=== PATIENT | female | born 1950 | race Hispanic/Latino ===

== ENCOUNTER 2017-02-23 11:48 | Inpatient (IN) | payer BC ==
[2017-02-23 12:56] LABS: #Eosinphils 0.2 thou/uL (0.0-0.7); #Lymphocytes 1.5 thou/uL (1.20-3.40); #Monocytes 0.6 thou/uL (0.11-0.59); #Neutrophils 10.2 thou/uL (1.40-6.50); %Basophils 0.2 % (0.0-1.0); %Eosinophils 1.5 % (0.0-10.0); %Lymphocytes 11.7 % (21.0-51.0); %Monocytes 4.7 % (0.0-10.0); Hematocrit 31.8 % (36.0-47.0); Mean Platelet Volume 6.1 fL (7.4-10.4); Red Blood Cell (RBC) Count 3.59 mill/uL (4.20-5.40); White Blood Cell (WBC) Count 12.4 thou/uL (4.8-10.8)
[2017-02-23] MEDS ORDERED: Furosemide 40 MG/4 ML VIAL ONE (13:07)
[2017-02-23 13:14] LABS: ALT (SGPT) 11 U/L (8-55); AST (SGOT) 15 U/L (5-34); Alkaline Phosphatase 62 U/L (40-150); Anion Gap 23 mmol/L (10-20); BUN (Urea Nitrogen) 60 mg/dL (9.8-20.1); Bilirubin, Total 0.6 mg/dL (0.2-1.2); CK (CPK) 406 U/L (29-168); Calc. Creatinine Clearance 0 mL/min (70-130); Calcium 7.6 mg/dL (7.8-10.44); Carbon Dioxide 20 mmol/L (23-31); Chloride 101 mmol/L (98-107); Estimated GFR-MDRD 3; Lipase 45 U/L (8-78); Protein, Total 7.3 g/dL (6.0-8.3)
[2017-02-23] MEDS ORDERED: Sodium Bicarb 50 MEQ/50 ML Abboject 8.4% SYRINGE ONE (13:24)
[2017-02-23] MEDS ORDERED: Insulin Regular 300 UNITS/3 ML VIAL ONE (13:24)
[2017-02-23] MEDS ORDERED: Dextrose 50% Abboject 50 ML SYRINGE ONE ×2 (13:25→14:45)
[2017-02-23] MEDS ORDERED: Calcium Chloride 1 GM/10 ML Abboject SYRINGE IVP SCH (13:30)
--- NOTE | 2017-02-23 15:06 | RAD ---
PORTABLE CHEST: Comparison: 06-20-16 History: Shortness of breath. FINDINGS: Heart size is enlarged. There is moderate pulmonary edema changes present. Small effusion. IMPRESSION: Cardiomegaly with moderate pulmonary edema type change. POS: [facility]
[2017-02-23 15:52] LABS: Anion Gap 19 mmol/L (10-20); BUN (Urea Nitrogen) 59 mg/dL (9.8-20.1); Calc. Creatinine Clearance 0 mL/min (70-130); Calcium 8.3 mg/dL (7.8-10.44); Carbon Dioxide 21 mmol/L (23-31); Chloride 103 mmol/L (98-107); Estimated GFR-MDRD 3
[2017-02-23 16:02] LABS: Troponin I 0.025 ng/mL (< 0.028)
[2017-02-23 17:06] VITALS: BMI 28.3
[2017-02-23] MEDS ORDERED: Acetaminophen 325 MG TAB PO PRN (18:03)
[2017-02-23] MEDS ORDERED: Insulin Regular 300 UNITS/3 ML VIAL SC PRN (18:15)
[2017-02-23] MEDS ORDERED: Dextrose 5% in Water 1,000 ML IV PRN (18:15)
[2017-02-23] MEDS ORDERED: Dextrose 50% Abboject 50 ML SYRINGE SLOW IVP PRN (18:15)
[2017-02-23] MEDS ORDERED: Epoetin (ESRD) 20,000 UNITS/ML SC SCH (18:30)
--- NOTE | 2017-02-23 19:03 | HP ---
DATE OF ADMISSION: 02/23/2017 ADMITTING PHYSICIAN: Dany Cabello M.D. PRIMARY CARE PHYSICIAN: Bartolome Head M.D. CHIEF COMPLAINT: Shortness of breath. HISTORY OF PRESENT ILLNESS: The patient is a pleasant 66-year-old female with history of end-stage r enal disease secondary to hypertension and diabetes. Patient is Vietnamese-speaking only and history is limited. Her family is at bedside and they report that she has been having difficulty breathing sin ce yesterday afternoon. Her dyspnea has worsened over the course of 1 day. They report that she did not have dialysis yesterday since she was not feeling well. The patient reports cough, sore throat and sweating. She denies nausea or vomiting. She reports intermittent chest pressure and feels like there is an inflated balloon in her upper abdomen and lower chest. The symptoms have improved somew hat since she has been here in the hospital. Dr. Villarreal, her chief media officer, is aware of her situation. The patient also noted to have potassium of 7.0. She will be admitted for peritoneal dialysis. REVIEW OF SYSTEMS: The following complete review of systems was negative, unless otherwise mentioned in the HPI or below: Constitutional: Weight loss or gain, sense of well-being, ability to conduct usual activities, exercise tolerance. Skin/Breast: Rash, itching, changes in hair growth or loss, n ail changes, breast lumps, tenderness, swelling, nipple discharge. Eyes: Vision, double vision, tea ring, blind spots, pain. ENT/Mouth: Headaches (location, time of onset, duration, precipitating fac tors), vertigo, lightheadedness, injury. Vision, double vision, tearing, blind spots, pain, nose blee ding, colds, obstruction, discharge, dental difficulties, gingival bleeding, dentures, neck stiffness , pain, tenderness, masses in thyroid or other areas. Cardiovascular: Precordial pain, substernal di stress, palpitations, syncope, dyspnea on exertion, orthopnea, nocturnal paroxysmal dyspnea, edema, c yanosis, hypertension, heart murmurs, varicosities, phlebitis, claudication. Respiratory: Pain, sourav rtness of breath, wheezing, stridor, cough, hemoptysis, fever or night sweats. Gastrointestinal: Po or appetite, dysphagia, indigestion, abdominal pain, heartburn, eructation, nausea, vomiting, hematem esis, jaundice, constipation, or diarrhea, abnormal stools (sarahy-colored, tarry, bloody, greasy, foul smelling), flatulence, hemorrhoids, recent changes in bowel habits. Genitourinary: Urgency, freque ncy, dysuria, nocturia, hematuria, polyuria, oliguria, unusual (or change in) color of urine, stones, hesitancy, change in size of stream, dribbling, acute retention or incontinence, libido, potency. M usculoskeletal: Pain, swelling, redness or heat of muscles or joints, limitation, of motion, muscula r weakness, atrophy, cramps. Neurologic/Psychiatric: Convulsions, paralyses, tremor, incoordination, parasthesias, difficulties with memory of speech, sensory or motor disturbances, or muscular coordin ation (ataxia, tremor), emotional problems, anxiety, depression, previous psychiatric care, unusual p erceptions, hallucinations. Allergy/Immunologic: Skin rash, anemia, bleeding tendency, polydipsia, polyuria, intolerance to heat or cold. PAST MEDICAL HISTORY: Significant for end-stage renal disease, diabetes type 2, hypertension. PAST SURGICAL HISTORY: Significant for bilateral cataract removal, dialysis shunt placement, tubal l igation, peritoneal abdominal cath site in the left lower quadrant and bladder suspension. PSYCHIATRIC HISTORY: Negative. SOCIAL HISTORY: Denies alcohol, drug use or smoking. She lives with her family and they are very harris pportive. FAMILY HISTORY: Reviewed and noncontributory to this case. HOME MEDICATIONS: Amlodipine 5 mg b.i.d., calcitriol 0.5 mg every day, calcium 600 plus D3 1 tablet t.i.d., calcium acetate 667 mg t.i.d., carvedilol 12.5 mg b.i.d., magnesium oxide 800 mg every day, m ultivitamin 2 tablets once a day. ALLERGIES: No known drug allergies. PHYSICAL EXAMINATION: VITAL SIGNS: Temperature 98.2, blood pressure 83/63, pulse 68, respirations 17, satting 96% on 2 lit ers. CONSTITUTIONAL: No acute distress, pleasant, cooperative. HEAD: Normocephalic, atraumatic. EYES: PERRL. Extraocular muscles intact. EAR, NOSE, THROAT: Nose normal. Ears normal. Trachea midline. There is some JVD distention. RESPIRATORY: There are crackles as well as some wheezing. CARDIAC: Regular rate and rhythm. Normal S1, normal S2. ABDOMEN: There is an umbilical hernia present that is reducible. There is a left lower quadrant per itoneal dialysis catheter present. EXTREMITIES: No clubbing, cyanosis or edema. She does have venous stasis changes. NEUROLOGIC: Alert and oriented to person, place and time. Full range of motion of extremities. LABORATORY DATA IMAGES: Chest x-ray shows moderate pulmonary edema, small pleural effusions and card iomegaly. EKG shows prolonged QT, normal sinus rhythm with a rate of 68, ST segments normal, T waves normal. CMP shows a sodium of 137, potassium 7.0, chloride 101, CO2 20, BUN 60, creatinine 14, AST 15, ALT 11, creatinine kinase 406, CK-MB 5.9, troponin I 0.03. BNP of 1628. Albumin 3.3. Glucose 9 2. Repeat potassium 3 hours later shows a potassium of 5.4. CBC shows a white count of 12.4, hemogl obin 10.4, hematocrit 31.8, platelets 295. ASSESSMENT AND PLAN: 1. Hyperkalemia. 2. End-stage renal disease. 3. Volume overload. 4. Hypertension. 5. Diabetes type 2. The patient will be admitted obviously to CCU with her hyperkalemia. She will be under the care of h chief media officer, Dr. Villarreal, who has ordered peritoneal dialysis. We will also treat her hypertension w ith her home medication regimen. We will place her on a sliding scale insulin regimen with q.a.c. an d at bedtime capillary blood glucose levels. We will do DVT prophylaxis with SCD devices.
[2017-02-23 19:11] LABS: Troponin I 0.037 ng/mL (< 0.028)
[2017-02-23] MEDS: hydrALAZINE 20 MG/ML VIAL SLOW IVP PRN (19:30)
[2017-02-24 04:30] LABS: #Eosinphils 0.2 thou/uL (0.0-0.7); #Lymphocytes 1.1 thou/uL (1.20-3.40); #Monocytes 0.6 thou/uL (0.11-0.59); #Neutrophils 6.7 thou/uL (1.40-6.50); %Basophils 0.6 % (0.0-1.0); %Eosinophils 2.3 % (0.0-10.0); %Lymphocytes 12.8 % (21.0-51.0); %Monocytes 6.5 % (0.0-10.0); Hematocrit 31.7 % (36.0-47.0); Mean Platelet Volume 6.4 fL (7.4-10.4); Red Blood Cell (RBC) Count 3.53 mill/uL (4.20-5.40); White Blood Cell (WBC) Count 8.6 thou/uL (4.8-10.8)
[2017-02-24 04:31] LABS: Anion Gap 20 mmol/L (10-20); BUN (Urea Nitrogen) 48 mg/dL (9.8-20.1); Calc. Creatinine Clearance 5 mL/min (70-130); Calcium 8.1 mg/dL (7.8-10.44); Carbon Dioxide 24 mmol/L (23-31); Chloride 104 mmol/L (98-107); Estimated GFR-MDRD 3; Phosphorus 7.4 mg/dL (2.3-4.7)
--- NOTE | 2017-02-24 05:51 | CON ---
DATE OF CONSULTATION: 02/23/2017 HISTORY OF PRESENT ILLNESS: Ms. Devi is a 66-year-old female with end-stage renal disease on per itoneal dialysis. Apparently, she skipped her dialysis session because she was not feeling well. Helga salazar presented to the emergency room with complaints of shortness of breath. She has undergone peritone al dialysis now and her potassium is come down. Her shortness of breath is improved. She says she i s much better. PAST MEDICAL HISTORY: Remarkable for diabetes and hypertension. PAST SURGICAL HISTORY: Cataract surgery, peripheral vascular access placement, peritoneal dialysis c atheter placement as well as a bladder suspension. SOCIAL HISTORY: She is nonsmoker, nondrinker. REVIEW OF SYSTEMS: Otherwise negative. MEDICATIONS: She is on calcitriol, amlodipine, calcium, Coreg, magnesium, and multivitamins prior to admission. ALLERGIES: She has no drug allergies. PHYSICAL EXAMINATION: GENERAL: She is in no distress, lying flat. VITAL SIGNS: She is afebrile. Oximetry is 98 on 2 liters, heart rate 71, and blood pressure 187/72. LUNGS: Clear. HEART: Regular rhythm. S1 and S2 are normal. ABDOMEN: Obese and nontender. EXTREMITIES: Without asymmetry. Pulmonary edema seen on the radiograph. IMPRESSION: Pulmonary edema and hyperkalemia secondary to failure to dialyze. Her potassium was 7.0 , now 5.4. Creatinine is 14.07, BUN was 60, this did not change as expected post-dialysis. Her BNP was 1627. She appears clinically stable, but we will remain in the ICU for now.
[2017-02-24] MEDS: Calcium Carbonate 500 MG ChewTAB PO SCH ×3 (07:30→17:12)
[2017-02-24] MEDS ORDERED: Carvedilol 3.125 MG TAB PO SCH (08:00)
[2017-02-24] MEDS ORDERED: Cefdinir 300 MG CAP PO SCH (09:00)
[2017-02-24] MEDS: Calcitriol 0.25 MCG CAP PO SCH (09:00)
--- NOTE | 2017-02-24 09:51 | CON ---
DATE OF CONSULTATION: 02/24/2017 RENAL MEDICINE HISTORY OF PRESENT ILLNESS: Ms. Devi is a 66-year-old female with ESRD - currently on peritoneal dialysis. She came in with the chief complaint of generalized weakness. She was also complaining of shortness of breath. During the initial evaluation, she was noted to be hyperka lemic. She was also found to be in mild volume overload. According to the patient, she was not feel ing well. She has been taking liberal intake of fluid as well as tea which was high in potassium. S he also stopped her nocturnal dialysis the night prior to admission. For now, we were consulted for hyperkalemia - she underwent emergent peritoneal dialysis. I did two quick 1 liter exchanges with 4. 25% PD solution and we are able to remove significant fluids. This was also done due to the hyperkal emia. She was placed on CCPD regimen using a 4.25% solution to enhance ultrafiltration. However, sh e started complaining of cramps. The plan will be to change the PD solution to 2.5% solution in the hope of decreasing ultrafiltration. This morning, she is feeling better. She denies any chest pain or shortness of breath. REVIEW OF SYSTEMS: No chest pain, no shortness of breath, no nausea, no vomiting, no diarrhea, no co nstipation, no syncopal episode, no diarrhea, no fever or chills, no joint pains, no new skin rash, n o diplopia, no appetite and energy level is decreased. No sore throat, no headache. MEDICATIONS: Tylenol 650 mg q.4 h. p.r.n., calcitriol 0.25 mcg daily, Tums 500 mg p.o. t.i.d. with m eals, Coreg 3.125 mg b.i.d., Omnicef 300 mg daily, Epogen 5000 units subcutaneously every 7 days, Hum ulin R sliding scale. PAST MEDICAL HISTORY: 1. ESRD secondary to chronic interstitial nephritis. 2. Hypertension. 3. Type 2 diabetes mellitus, controlled by diet. 4. Chronic low back pain. 5. DJD. 6. History of chronic NSAID intake. PAST SURGICAL HISTORY: 1. Status post PD catheter placement. 2. Status post cataract surgery. 3. Status post bladder suspension. SOCIAL HISTORY: The patient is single and she lives in the [facility]. Currently, n o smoking, no alcohol intake, no IV drug abuse. Status post blood transfusion. Retired house [employer]. She has 6 children with one . She is . Please note she did have history of smoki ng 15 pack years, originally from [place]. Education, primary grade in [place]. FAMILY HISTORY: Positive family history of ESRD. One sister on dialysis. ALLERGIES: None. TRAUMA: None. IMMUNIZATIONS: Up-to-date. PHYSICAL EXAMINATION: VITAL SIGNS: Blood pressure 173/68, heart rate 75, respiratory rate 22, pulse ox 100%. GENERAL: Noted to be awake, alert, comfortable, not in distress. SKIN: Adequate turgor. HEENT: She has slightly pale conjunctivae, anicteric sclerae. NECK: No neck mass, no carotid bruits, no JVD. CHEST: No deformities. LUNGS: Clear breath sounds. No wheezing, no crackles. HEART: Normal sinus rhythm. No murmur, no gallops, no rubs. ABDOMEN: Globular, soft, nontender, no masses. Positive for PD catheter. EXTREMITIES: No edema. LABORATORY DATA: Of 01/25/2017, white count 8.6, hemoglobin 10.4, sodium 143, potassium 4.7, chlorid e 104, carbon dioxide 24, BUN 48, creatinine 12.99, glucose 134, calcium 8.1, phosphorus 7.4, albumin is 2.8. Further review of her serum potassium shows 02/23/2017 potassium was 7. On 02/23/2017, ana st x-ray shows increased lung markings. ASSESSMENT AND PLAN: 1. Congestive heart failure, much improved. We will max out ultrafiltration with the peritoneal lon lysis. I removed about 2.5 liters overnight with peritoneal dialysis. Due to the cramping episode, we will be changing her PD solution. 2. End-stage renal disease, stable. We will continue current CCPD regimen. Next step will be using a 2.5% PD solution for tonight. 3. Anemia, on weekly Epogen. 4. Hyperkalemia, resolved. 5. Congestive heart failure, clinically much improved with peritoneal dialysis. I did discuss about compliance issues with this patient via her daughter who was translating for me. Overall, I agree w ith current management.
[2017-02-24] MEDS: hydrALAZINE 20 MG/ML VIAL SLOW IVP PRN (09:54)
--- NOTE | 2017-02-24 10:08 | PDOC.PN ---
- Subjective Encounter Start Date: 02/24/17 Encounter Start Time: 08:25 -: old records requested/rev Patient seen and examined. No new complaints. No overnight events - Objective Resuscitation Status: Resuscitation Status FULL:Full Resuscitation MAR Reviewed: Yes Vital Signs & Weight: Vital Signs (12 hours) Temp Pulse Resp BP Pulse Ox 02/24/17 09:54 75 204/73 H 02/24/17 08:00 98.5 F 02/24/17 07:35 98.5 F 76 19 100 02/24/17 04:00 98.4 F 02/24/17 00:00 98.6 F Most Recent Monitor Data Heart Rate from ECG 75 NIBP 173/68 NIBP BP-Mean 85 Respiration from ECG 22 SpO2 100 I&O: 02/23/17 02/24/17 02/25/17 06:59 06:59 06:59 Intake Total 590 240 Output Total 280 300 Balance 310 -60 Result Diagrams: 02/24/17 04:10 02/24/17 04:10 Additional Labs: Accuchecks 02/23/17 21:37 POC Glucose 140 H EKG Reviewed by me: Yes (NSR) Phys Exam - Physical Examination Constitutional: NAD HEENT: PERRLA, moist MMs, sclera anicteric Neck: no JVD, supple Respiratory: no wheezing, no rhonchi few basilar rales Cardiovascular: RRR, no significant murmur, no rub Gastrointestinal: soft, non-tender, no distention, positive bowel sounds obeisty+, PD catheter + Musculoskeletal: no edema, pulses present Neurological: non-focal, normal sensation Lymphatic: no nodes Psychiatric: normal affect, A&O x 3 Skin: no rash, normal turgor Dx/Plan (1) Acute on chronic combined systolic and diastolic congestive heart failure Code(s): I50.43 - ACUTE ON CHRONIC COMBINED SYSTOLIC AND DIASTOLIC HRT FAIL Status: Acute (2) Acute pulmonary edema Code(s): J81.0 - ACUTE PULMONARY EDEMA Status: Acute (3) Demand ischemia Code(s): I24.8 - OTHER FORMS OF ACUTE ISCHEMIC HEART DISEASE Status: Acute (4) Hypoglycemia due to type 2 diabetes mellitus Code(s): E11.649 - TYPE 2 DIABETES MELLITUS WITH HYPOGLYCEMIA WITHOUT COMA Status: Acute (5) Volume overload Code(s): E87.70 - FLUID OVERLOAD, UNSPECIFIED Status: Acute (6) Anemia of renal disease Code(s): D63.1 - ANEMIA IN CHRONIC KIDNEY DISEASE Status: Chronic (7) Diabetes type 2, controlled Code(s): E11.9 - TYPE 2 DIABETES MELLITUS WITHOUT COMPLICATIONS Status: Chronic (8) ESRD on peritoneal dialysis Code(s): N18.6 - END STAGE RENAL DISEASE; Z99.2 - DEPENDENCE ON RENAL DIALYSIS Status: Chronic (9) Hypertension Code(s): I10 - ESSENTIAL (PRIMARY) HYPERTENSION Status: Chronic (10) Secondary hyperparathyroidism of renal origin Code(s): N25.81 - SECONDARY HYPERPARATHYROIDISM OF RENAL ORIGIN Status: Chronic - Plan cont current plan of care, plan discussed w/ family * today will adjust BP meds * transfer to medical today * continue PD for fluid removal * wean off oxygen if not needed * medication reviewed as below * symptomatic treatment * discussed with daughter bedside and discussed test result. Review of Systems - Review of Systems Constitutional: negative: Fever, Chills, Sweats, Weakness, Malaise, Other ENT: negative: Ear Pain, Ear Discharge, Nose Pain, Nose Discharge, Nose Congestion, Mouth Pain, Mouth Swelling, Throat Pain, Throat Swelling, Other Respiratory: Shortness of Breath, SOB with Excertion. negative: Cough, Dry, Hemoptysis, Pleuritic Pain, Sputum, Wheezing Cardiovascular: negative: Chest Pain, Palpitations, Orthopnea, Paroxysmal Noc. Dyspnea, Edema, Light Headedness, Other Gastrointestinal: negative: Nausea, Vomiting, Abdominal Pain, Diarrhea, Constipation, Melena, Hematochezia, Other Genitourinary: negative: Dysuria, Frequency, Incontinence, Hematuria, Retention , Other Musculoskeletal: negative: Neck Pain, Shoulder Pain, Arm Pain, Back Pain, Hand Pain, Leg Pain, Foot Pain, Other Skin: negative: Rash, Lesions, Jere, Bruising, Other - Medications/Allergies Allergies/Adverse Reactions: Allergies Allergy/AdvReac Type Severity Reaction Status Date / Time No Known Allergies Allergy Verified 04/20/14 23:39 Medications: Current Medications Acetaminophen (Tylenol) 650 mg PO Q4H PRN PRN Reason: Headache/Fever or Pain Amlodipine Besylate (Norvasc) 5 mg PO BID [facility] Calcitriol (Rocaltrol) 0.25 mcg PO DAILY [facility] Last Admin: 02/24/17 09:00 Dose: 0.25 mcg Calcium Acetate (Phoslo) 2,668 mg PO TID [facility] Calcium Carbonate (Tums) 500 mg PO TID[facility] Last Admin: 02/24/17 07:30 Dose: 500 mg Carvedilol (Coreg) 12.5 mg PO BID-[facility] Cefdinir (Omnicef) 300 mg PO DAILY [facility] Last Admin: 02/24/17 07:30 Dose: 300 mg Cholecalciferol (Vitamin D3) 5,000 units PO DAILY [facility] Dextrose/Water (Dextrose 50%) 25 gm SLOW IVP PRN PRN PRN Reason: Hypoglycemia Epoetin Edson (Procrit) 5,000 units SC Q7D [facility] Last Admin: 02/23/17 19:30 Dose: 5,000 units Glucagon (Glucagon) 1 mg IM PRN PRN PRN Reason: Hypoglycemia Hydralazine HCl (Apresoline) 10 mg SLOW IVP Q4H PRN PRN Reason: Blood Pressure Last Admin: 02/24/17 09:54 Dose: 10 mg Dextrose/Water (D5w) 1,000 mls @ 0 mls/hr IV .Q0M PRN; As Directed PRN Reason: Hypoglycemia Insulin Human Regular (Humulin R) 0 units SC .MILD SLIDING SCALE PRN PRN Reason: Mild Correctional Scale Sodium Chloride (Flush - Normal Saline) 10 ml IVF PRN PRN PRN Reason: Saline Flush
[2017-02-24] MEDS ORDERED: Sevelamer Carbonate 800 MG TAB PO SCH (12:00)
--- NOTE | 2017-02-24 12:42 | PRG ---
DATE OF SERVICE: 02/24/2017 SUBJECTIVE: Ms. Devi did well overnight. She is back to her baseline. PHYSICAL EXAMINATION: VITAL SIGNS: She has a little hypertensive with blood pressure of 204/73 earlier today. She is afeb rile, heart rate 75, respiratory rate is 18. LUNGS: Lungs are clear. HEART: Regular rhythm. ABDOMEN: Abdomen is soft. It was assumed that skipping 1 day of peritoneal dialysis led to her problems. She may have also had significant hypertension at home that was not diagnosed leading to her pulmonary edema. She will ne ed to continue with PD on a daily basis. This was emphasized to the family. Home blood pressure mon itoring would be appropriate. She is stable to move out of the Critical Care Unit.
[2017-02-24] MEDS ORDERED: CALCIUM CARBONATE PO SCH (15:00)
[2017-02-24] MEDS ORDERED: [UNRECOGNIZED DRUG - OTHER] PO SCH (15:00)
[2017-02-24] MEDS ORDERED: VITAMIN D3 PO SCH (15:00)
[2017-02-24] MEDS: Carvedilol 6.25 MG TAB PO SCH (17:11)
[2017-02-24] MEDS: Calcium Acetate 667 MG CAP PO SCH ×2 (17:11→20:51)
[2017-02-24] MEDS: Amlodipine 5 MG TAB PO SCH (20:51)
[2017-02-25 06:25] LABS: Anion Gap 19 mmol/L (10-20); BUN (Urea Nitrogen) 46 mg/dL (9.8-20.1); BUN/Creatinine Ratio 3.62; Calc. Creatinine Clearance 5 mL/min (70-130); Calcium 8.3 mg/dL (7.8-10.44); Carbon Dioxide 25 mmol/L (23-31); Chloride 102 mmol/L (98-107); Estimated GFR-MDRD 3; Phosphorus 7.4 mg/dL (2.3-4.7)
[2017-02-25] MEDS: Calcium Acetate 667 MG CAP PO SCH (08:04)
[2017-02-25] MEDS: Calcitriol 0.25 MCG CAP PO SCH (08:04)
[2017-02-25] MEDS: Calcium Carbonate 500 MG ChewTAB PO SCH (08:05)
[2017-02-25] MEDS: Amlodipine 5 MG TAB PO SCH (08:05)
[2017-02-25] MEDS: Carvedilol 6.25 MG TAB PO SCH (08:05)
[2017-02-25 08:29] VITALS: BP 176/83; TEMP 98.3
--- NOTE | 2017-02-25 11:13 | PRG ---
DATE OF CONSULTATION: 02/25/2017 HISTORY OF PRESENT ILLNESS: Ms. Devi is a 66-year-old female with ESRD and currently on peritoneal dialysis - nocturnal. She was admitted for CHF and hyperkalemia. She received intensive peritoneal dialysis on the day of admission. She is feeling better, her breathing is much improved. Potassium is now within normal. She voices no new complaints - no chest pain or shortness of breat h. PHYSICAL EXAMINATION: VITAL SIGNS: Blood pressure is 176/83, heart rate 70, respiratory rate 18, temperature 98.3, pulse o x 93%. GENERAL: Awake, alert, comfortable, not in distress. SKIN: Adequate turgor. HEENT: She has pinkish conjunctivae, anicteric sclerae. NECK: No neck mass, no carotid bruits, no JVD. CHEST: No deformities. LUNGS: Clear breath sounds, no wheezing, no crackles. HEART: Normal sinus rhythm. No murmur, no gallops or rubs. ABDOMEN: Globular, soft, nontender, no masses. EXTREMITIES: No edema, no deformities. Please note she has a PD catheter in the belly. MEDICATIONS: 03/17/2017 - Reviewed. LABORATORY: 02/24/2017 - White count 8.6, hemoglobin 10.4. 02/25/2017 - Potassium 4.7, BUN 46, creatinine 12.7, glucose 122, phosphorus is 7.4. ASSESSMENT AND PLAN: 1. Congestive heart failure, clinically improved with initiation of dialysis. 2. Hyperkalemia, resolved with dialysis. 3. End-stage renal disease, continuing current CCPD regimen. We have changed her PD regimen to usin g a 2.5% PD solution for 12 hours nocturnal dialysis. 4. Hyperphosphatemia currently on PhosLo 667 mg 3-4 tabs t.i.d. with meals. 5. Hypertension. Adjustment of BP meds made. I agree with planned management - for possible discharge today. Again, the patient was counseled on compliance with her dialysis regimen.
--- NOTE | 2017-02-25 11:27 | DIS ---
DATE OF ADMISSION: 02/23/2017 DATE OF DISCHARGE: 02/25/2017 PRIMARY CARE PHYSICIAN: Dr. Jm Rondon. DISCHARGE DISPOSITION: Home. PRIMARY DISCHARGE DIAGNOSES: 1. Acute on chronic combined systolic and diastolic congestive heart failure. 2. Acute pulmonary edema. 3. Demand ischemia of myocardium. 4. Hypoglycemia associated with diabetes type 2. 5. Volume overload due to end-stage renal disease. SECONDARY DISCHARGE DIAGNOSES: 1. End-stage renal disease on peritoneal dialysis. 2. Hypertension. 3. Diabetes type 2. 4. Anemia of renal disease. 5. Secondary hyperparathyroidism of renal origin. PRIMARY PROCEDURE/OPERATION: Peritoneal dialysis. RADIOLOGICAL INVESTIGATION: Chest x-ray showed findings suggestive of pulmonary edema. SIGNIFICANT LABORATORY DATA: WBC 8.2, hemoglobin 10.4, platelets 279. BMP shows sodium 141, potassium 4.7, BUN 46, creatinine 12.7, calcium 8.3, phosphorus 7.4, albumin 2.8. DISCHARGE MEDICATIONS: Amlodipine 5 mg p.o. b.i.d., calcitriol 0.5 mcg p.o. daily, PhosLo 667 mg 4 capsules t.i.d., multivitamin tablet daily, calcium with vitamin D 1 tablet t.i.d., Coreg 12.5 mg p.o. b.i.d., vitamin D3 5000 units p.o. daily, hydralazine 25 mg p.o. b.i.d., Imdur 30 mg p.o. daily. CONTRAINDICATIONS: Patient is not on YURIY inhibitor and ARB, because of renal failure and contraindicated instated patient is on hydralazine and mononitrate therapy. INPATIENT CONSULTANTS: Dr. Marcelino was following this patient while in hospital, because patient was admitted in ICU. Dr. Villarreal was consulted for dialysis. TEST RESULTS PENDING ON DISCHARGE: None. ALLERGIES: No known drug allergies. DISCHARGE PLAN: Post hospital, the patient will follow up with Dr. Villarreal and primary care physician as instructed. HOSPITAL COURSE: A 66-year-old female who was admitted by Dr. Dayn Cabello. Please see his H&P for further details. The patient was admitted on 02/23/2017 with increasing shortness of breath. The patient missed her peritoneal dialysis and subsequently she started having increasing shortness of breath, orthopnea. In the emergency room, she also had hyperkalemia with potassium 7.0 and she had x-ray chest, which showed acute pulmonary edema. She was fluid overloaded. She required admission in CCU. She was emergently dialyzed with peritoneal dialysis under Dr. Villarreal. After peritoneal dialysis and significant fluid removal, the patient became euvolemic and her potassium improved. The next day, we transferred her to medical floor. We continued peritoneal dialysis as per Nephrology while in hospital. By the time of discharge, the patient was feeling much better. Her blood pressure was not well controlled and that is why during this admission, we started hydralazine and mononitrate therapy given her systolic and diastolic heart failure. Based on previous echocardiography, patient has systolic and diastolic dysfunction and that is why we added hydralazine and mononitrate therapy. She is not on YURIY inhibitor and ARB, because of ESRD. The patient is seen and examined at bedside today. Plan of care discussed with the family member at bedside. PHYSICAL EXAMINAITON: VITAL SIGNS: Currently, temperature 98.3, pulse 70, respiratory rate 18, saturation 93%, and blood pressure 176/89. Weight 154 pounds. GENERAL: The patient is currently alert, awake, no acute distress. HEAD: Normocephalic, atraumatic. LUNGS: Clear to auscultation without any rhonchi or rales. CARDIAC: S1, S2 regular without any murmur. ABDOMEN: Soft and benign without any tenderness. EXTREMITIES: No edema. NEUROLOGIC: Nonfocal examination. Peritoneal dialysis catheter site is clean and healthy. All new medication prescriptions sent to her pharmacy. EMELINA
== END 2017-02-25 10:45 | disposition home or self-care (01) | DRG 291 ==
LOC: ERS 11:48 → CCU 16:15 → T4-A 02-24 09:51
PROVIDERS: ADMIT Internal Medicine Addiction Medicine; ATTEND Internal Medicine Addiction Medicine
PROC: 3E1M39Z Irrigation of Peritoneal Cavity using Dialysate, Percutaneous Approach (ICD-10-PCS; principal; 2017-02-23)
DX: I13.2 Hypertensive heart and chronic kidney disease with heart failure and with stage 5 chronic kidney disease, or end stage renal disease (principal); I50.43 Acute on chronic combined systolic (congestive) and diastolic (congestive) heart failure; N18.6 End stage renal disease; N25.81 Secondary hyperparathyroidism of renal origin; E11.22 Type 2 diabetes mellitus with diabetic chronic kidney disease; I24.8 Other forms of acute ischemic heart disease; E11.649 Type 2 diabetes mellitus with hypoglycemia without coma; E83.39 Other disorders of phosphorus metabolism; E87.5 Hyperkalemia; Z99.2 Dependence on renal dialysis; D63.1 Anemia in chronic kidney disease; M19.90 Unspecified osteoarthritis, unspecified site; Z91.15 Patient's noncompliance with renal dialysis
CPT/HCPCS: 36415; 36416; 71010; 80053; 80069; 82553; 83690; 83880; 84484; 85025; 90945; 93005; 94760; 96365; 96375; 96376; G0257; J0360; J1815; J1940; Q4081

== ENCOUNTER 2018-03-01 13:36 | Emergency (ER) | payer BC ==
[2018-03-01 14:39] LABS: #Eosinphils 0.2 thou/uL (0.0-0.7); #Lymphocytes 1.6 thou/uL (1.20-3.40); #Monocytes 0.6 thou/uL (0.11-0.59); %Basophils 0.2 % (0.0-1.0); %Eosinophils 2.1 % (0.0-10.0); %Lymphocytes 18.5 % (21.0-51.0); %Monocytes 7.4 % (0.0-10.0); %Neutrophils 71.9 % (42.0-75.0); Hemoglobin 9.6 g/dL (12.0-16.0); Mean Corpuscular HGB CONC 33.5 g/dL (32.0-36.0); Mean Corpuscular Hemoglobin 29.5 pg (27.0-31.0); Mean Corpuscular Volume 88.2 fL (78.0-98.0); Mean Platelet Volume 6.7 fL (7.4-10.4); Platelet Count 331 thou/uL (130-400); RBC Distribution Width 13.2 % (11.5-14.5); Red Blood Cell (RBC) Count 3.26 mill/uL (4.20-5.40); White Blood Cell (WBC) Count 8.4 thou/uL (4.8-10.8)
[2018-03-01 14:58] LABS: ALT (SGPT) 8 U/L (8-55); AST (SGOT) 11 U/L (5-34); Albumin 3.1 g/dL (3.4-4.8); Alkaline Phosphatase 62 U/L (40-150); Anion Gap 28 mmol/L (10-20); BUN (Urea Nitrogen) 55 mg/dL (9.8-20.1); Bilirubin, Total 0.6 mg/dL (0.2-1.2); Calc. Creatinine Clearance 0 mL/min (70-130); Carbon Dioxide 19 mmol/L (23-31); Chloride 98 mmol/L (98-107); Estimated GFR-MDRD 2; Globulin 3.9 g/dL (2.4-3.5); Glucose 115 mg/dL (80-115); Lipase 90 U/L (8-78); Potassium 5.7 mmol/L (3.5-5.1); Sodium 139 mmol/L (136-145)
--- NOTE | 2018-03-01 16:15 | CT ---
CT ABDOMEN AND PELVIS WITHOUT CONTRAST: 03/01/2018 PROVIDED CLINICAL HISTORY: Upper abdominal pain. FINDINGS: The visualized lung bases are free of significant opacity. Prominent vascular calcifications are seen. There is a 3.7 cm right adrenal mass with Hounsfield uni ts not compatible with a lipid-rich adenoma. There are small, nonobstructing calculi present involvi ng each kidney, in addition to renal vascular calcification. The solid abdominal organs are suboptim ally evaluated, in the absence of IV contrast material, but demonstrate an otherwise unremarkable CT appearance. Mild nonspecific fullness to the left renal collecting system without evidence for addit ional urinary tract calculi. No bowel dilatation, inflammatory fat stranding, or free air apparent. Free fluid is present within the pelvis, with a peritoneal dialysis catheter noted, coiled within the anterior aspect of the pelvi s. Pessary is noted. There is no evidence for a concerning osteoblastic or osteolytic osseous lesio n. Degenerative changes are seen. There is a large, coarse calcification present within the central abdominal mesentery, likely reflect ing sequela of prior granulomatous disease. IMPRESSION: 1. Bilateral nonobstructing nephrolithiasis and nonspecific fullness of the left renal collecting sy stem. 2. 3.7 cm right adrenal mass, incompletely characterized on the basis of this study. Non-emergent f ollow-up CT of the abdomen with and without intravenous contrast, utilizing adrenal adenoma protocol, recommended. POS: [facility]
[2018-03-01] MEDS ORDERED: Pantoprazole 40 MG VIAL ONE (16:31)
--- NOTE | 2018-03-01 17:20 | ULT ---
RIGHT UPPER QUADRANT ULTRASOUND: 03/01/2018 HISTORY: Right upper quadrant abdominal pain. COMPARISON: Noncontrast CT abdomen on 03/01/2018. FINDINGS: The liver is borderline enlarged, measuring 18 cm in craniocaudal dimensions, but the liver otherwise has a normal sonographic appearance. The limited visualized portions of the pancreas, the visualize d portions of the IVC, and the gallbladder demonstrate a normal sonographic appearance. The common d uct measures 0.6 cm in diameter, which is within normal limits. The right kidney is small in size, measuring 8.8 cm in length, with mild increased echogenicity, whic h can be seen with medical renal disease. There is no renal cortical thinning present. A few echoge coleman foci are seen within the right kidney, without definite shadowing. However, recent CT examinatio n did demonstrate vascular calcifications, which may account for this finding. There is no hydroneph rosis present. IMPRESSION: 1. Borderline hepatomegaly. 2. No gallbladder calculi are seen, and the common duct is normal in diameter. 3. Increased echogenic appearance of the kidney, which is nonspecific. This can be seen with chroni c medical renal disease. There is no hydronephrosis. 4. The right adrenal lesion seen on CT examination is not able to be visualized on this examination. POS: [facility]
== END 2018-03-01 16:55 | disposition home or self-care (01) ==
LOC: ERS 13:36
DX: R10.11 Right upper quadrant pain (principal); R10.12 Left upper quadrant pain; E11.9 Type 2 diabetes mellitus without complications; I10 Essential (primary) hypertension; N28.9 Disorder of kidney and ureter, unspecified; Z79.899 Other long term (current) drug therapy
CPT/HCPCS: 36415; 74176; 76705; 80053; 83690; 84484; 85025; 94760; 96374; C9113

== ENCOUNTER 2018-09-07 16:35 | Inpatient (IN) | payer BC ==
[2018-09-07 17:18] LABS: #Basophils 0.1 thou/uL (0.0-0.2); #Eosinphils 0.2 thou/uL (0.0-0.7); #Monocytes 0.8 thou/uL (0.11-0.59); #Neutrophils 6.8 thou/uL (1.40-6.50); %Basophils 0.7 % (0.0-1.0); %Eosinophils 2.3 % (0.0-10.0); %Lymphocytes 20.1 % (21.0-51.0); %Monocytes 7.9 % (0.0-10.0); %Neutrophils 68.9 % (42.0-75.0); Hemoglobin 10.3 g/dL (12.0-16.0); Mean Corpuscular HGB CONC 30.9 g/dL (32.0-36.0); Mean Corpuscular Hemoglobin 26.3 pg (27.0-31.0); Mean Corpuscular Volume 85.2 fL (78.0-98.0); Mean Platelet Volume 6.9 fL (7.4-10.4); Platelet Count 369 thou/uL (130-400); RBC Distribution Width 18.4 % (11.5-14.5); Red Blood Cell (RBC) Count 3.92 mill/uL (4.20-5.40); White Blood Cell (WBC) Count 9.9 thou/uL (4.8-10.8)
[2018-09-07 17:37] LABS: ALT (SGPT) 13 U/L (8-55); AST (SGOT) 20 U/L (5-34); Albumin 3.5 g/dL (3.4-4.8); Alkaline Phosphatase 58 U/L (40-150); Anion Gap 22 mmol/L (10-20); BUN (Urea Nitrogen) 63 mg/dL (9.8-20.1); Bilirubin, Total 0.8 mg/dL (0.2-1.2); Calc. Creatinine Clearance 0 mL/min (70-130); Calcium 9.7 mg/dL (7.8-10.44); Carbon Dioxide 25 mmol/L (23-31); Chloride 90 mmol/L (98-107); Estimated GFR-MDRD 3; Globulin 3.7 g/dL (2.4-3.5); Glucose 96 mg/dL (80-115); Lipase 52 U/L (8-78); Potassium 5.6 mmol/L (3.5-5.1); Protein, Total 7.2 g/dL (6.0-8.3); Sodium 131 mmol/L (136-145)
[2018-09-07] MEDS ORDERED: Morphine 4 MG/ML VIAL ONE (17:52)
[2018-09-07 19:10] LABS: Body Fluid Source Peritoneal Fluid
[2018-09-07 19:11] LABS: BF RBC Count - Manual 9 /cumm; BF WBC/Nonhematics Ct. - Manua 71 /cumm; Clarity Clear (Clear); Tube # EDTA
[2018-09-07] MEDS ORDERED: cefTRIAXone\\ROCEPHIN 2 GM in Sodium Chloride 0.9% 100 ML IVPB SCH (19:30)
--- NOTE | 2018-09-07 19:33 | CT ---
CT OF ABDOMEN AND PELVIS PERFORMED WITH CONTRAST ENHANCEMENT: 09/07/18 HISTORY: Left sided abdominal pain for three days. COMPARISON: 03/01/[address] of the abdomen and pelvis. The heart size is enlarged with a small pericardial effusion. Lung bases show chronic appearing dexter e. Some minimal ground glass opacity could indicate the presence of edema change but no effusions [place] ntified. The liver, spleen, and pancreas regions are unremarkable. Gallbladder is slightly distended. There is a stable appearance to an approximately 3.7 cm right adrenal mass incompletely characterized . The left adrenal is normal. The right and left kidneys again show extensive vascular calcifications and also would appear to be some nonobstructing renal calculi. Fullness to the left collecting syste m is of similar finding that was seen on the prior exam and is nonspecific. No significant periaortic or mesenteric adenopathy. There is mild to moderate amount of ascites noted. The patient does have a peritoneal dialysis catheter. There is also free air demonstrated. I do not see a definite reason fo r the free air. It could be related to usage of the peritoneal dialysis catheter. There is a paraumbi lical hernia which is nonobstructing. CT OF PELVIS PERFORMED WITH CONTRAST ENHANCEMENT: There is a mass-like area projecting off the right side of the uterus which is felt to represent a fi broid. It measures approximately 4.8 cm in size and is stable. Calcified mesenteric density is also s table. A pessary is in place. Some mild wall thickening to a nondistended bladder is incidentally see n. No lytic or blastic bony lesions. IMPRESSION: 1. Moderate amount of ascites present. The patient does have a peritoneal dialysis catheter. In addition, there is free air demonstrated but I do not see a definite etiology for the free air. It i s possible it is related to dialysis catheter. These findings were discussed with Dr. Reaves who kiran s stated that there has been recent peritoneal dialysis catheter use. 2. Uterine fibroid. 3. Stable right adrenal mass. 4. Colonic diverticulosis. 5. Nonobstructing periumbilical hernia. 6. Duodenal diverticulum in the third portion of the duodenum. 7. Other incidental findings as noted above. POS: [facility]
[2018-09-07 19:40] LABS: BF Segmented Neutrophils 4 %; Cell Count Non Hematic 90 %; Lymphocytes 6 %
[2018-09-07] MEDS ORDERED: Bisacodyl 10 MG SUPP PR PRN (19:42)
[2018-09-07] MEDS ORDERED: Bisacodyl 5 MG TAB PO PRN (19:42)
[2018-09-07] MEDS ORDERED: Diabetic Tussin 200 MG/10 ML UDCUP PO PRN (19:42)
[2018-09-07] MEDS ORDERED: Benzonatate 100 MG CAP PO PRN (19:42)
[2018-09-07] MEDS ORDERED: Ondansetron PF 4 MG/2 ML Vial IVP PRN (19:42)
[2018-09-07] MEDS ORDERED: Nitroglycerin 0.4 MG TAB (25 Tab Bottle) SL PRN (19:42)
[2018-09-07] MEDS ORDERED: Senokot S 8.6-50 MG TAB PO PRN (19:42)
[2018-09-07] MEDS ORDERED: cloNIDine 0.1 MG TAB PO PRN (19:47)
[2018-09-07 19:55] LABS: Bilirubin Negative (Negative); Blood, Urine Large (Negative); Clarity Slightly Cloudy (Clear); Glucose, Urine (Dipstick) 100 mg/dL (Negative); Leukocyte Small (Negative); Nitrite Negative (Negative); Protein, Urine (Dipstick) > or equal to 300 mg/dL (Neg-Trace); Urobilinogen 0.2 mg/dL (0.2-1.0)
[2018-09-07 19:58] LABS: pH, Urine 8.5 (5.0-9.0)
[2018-09-07 20:01] LABS: Other Microscopic Description Less than 2 mL rec'd
[2018-09-07 20:02] LABS: Bacteria/HPF Rare-Few HPF (None Seen); Crystals/HPF 1+ AMORPH PHOS HPF (Negative); Hyaline Casts/LPF NONE SEEN LPF (0-3 Hyaline); RBC/HPF 0-3 HPF (0-3); Squamous Epithelial 0-3 HPF (0-3); WBC/HPF 0-3 HPF (0-3)
[2018-09-07] MEDS ORDERED: Dextrose 5% in Water 1,000 ML IV PRN (20:29)
[2018-09-07] MEDS ORDERED: Dextrose 50% Abboject 50 ML SYRINGE SLOW IVP PRN (20:29)
[2018-09-07] MEDS ORDERED: HumaLOG 300 UNITS/3 ML VIAL SC PRN ×2 (20:29)
[2018-09-07] MEDS ORDERED: cefTRIAXone\\ROCEPHIN 2 GM VIAL ONE (20:39)
[2018-09-07 21:12] VITALS: BMI 26.6
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
[2018-09-07] MEDS: Amlodipine 5 MG TAB PO SCH (21:28)
[2018-09-07] MEDS: Heparin 5,000 UNITS/ML VIAL SC SCH (21:28)
[2018-09-07] MEDS: Famotidine 20 MG TAB PO SCH (21:29)
[2018-09-07] MEDS: hydrALAZINE 20 MG/ML VIAL SLOW IVP PRN (22:48)
[2018-09-08] MEDS ORDERED: Morphine 2 MG/ML SYRINGE SLOW IVP PRN (02:10)
[2018-09-08 06:05] LABS: #Eosinphils 0.2 thou/uL (0.0-0.7); #Lymphocytes 1.5 thou/uL (1.20-3.40); #Monocytes 0.8 thou/uL (0.11-0.59); #Neutrophils 5.9 thou/uL (1.40-6.50); %Basophils 0.4 % (0.0-1.0); %Eosinophils 2.4 % (0.0-10.0); %Lymphocytes 17.6 % (21.0-51.0); %Monocytes 8.9 % (0.0-10.0); %Neutrophils 70.8 % (42.0-75.0); Hemoglobin 9.7 g/dL (12.0-16.0); Mean Corpuscular Hemoglobin 25.7 pg (27.0-31.0); Mean Corpuscular Volume 85.6 fL (78.0-98.0); Platelet Count 338 thou/uL (130-400); RBC Distribution Width 18.5 % (11.5-14.5); Red Blood Cell (RBC) Count 3.78 mill/uL (4.20-5.40); White Blood Cell (WBC) Count 8.4 thou/uL (4.8-10.8)
[2018-09-08 06:23] LABS: Anion Gap 19 mmol/L (10-20); BUN (Urea Nitrogen) 55 mg/dL (9.8-20.1); Calc. Creatinine Clearance 4 mL/min (70-130); Calcium 8.9 mg/dL (7.8-10.44); Carbon Dioxide 27 mmol/L (23-31); Chloride 89 mmol/L (98-107); Estimated GFR-MDRD 3; Glucose 109 mg/dL (80-115); Potassium 4.7 mmol/L (3.5-5.1); Sodium 130 mmol/L (136-145)
[2018-09-08] MEDS: Amlodipine 5 MG TAB PO SCH ×2 (08:43→20:47)
[2018-09-08] MEDS: Heparin 5,000 UNITS/ML VIAL SC SCH ×2 (08:44→20:47)
[2018-09-08] MEDS: cefTRIAXone\\ROCEPHIN 1 GM in Sodium Chloride 0.9% 100 ML IVPB SCH (08:44)
[2018-09-08] MEDS ORDERED: Epoetin (ESRD) 20,000 UNITS/ML SC SCH (08:45)
[2018-09-08] MEDS ORDERED: Magnesium Oxide 400 MG TAB PO PRN (09:30)
[2018-09-08] MEDS: Carvedilol 6.25 MG TAB PO SCH ×2 (09:48→17:45)
--- NOTE | 2018-09-08 11:08 | CON ---
DATE OF CONSULTATION: HISTORY OF PRESENT ILLNESS: Ms. Devi is a 68-year-old female with ESRD and admitted for abdominal pain. We are being consulted for her maintenance peritoneal dialysis. She had one peritoneal dialysis last night. Ultrafiltration/fluid removal was about 600 mL this morning. She is still complaining of abdominal fullness. Please note, the CAT scan was done, which showed ascites with this patient ? She is complaining of abdominal fullness. REVIEW OF SYSTEMS: No chest pain. Positive for abdominal fullness. Positive for abdominal discomfort. No nausea. No vomiting. No chest pain. No headache. No diplopia. No fever or chills. No hematochezia. No melena. No hematemesis. No dysuria. No urinary frequency. No PD fluid discoloration. MEDICATIONS: Currently on; 1. Amlodipine 5 mg p.o. b.i.d. 2. Tessalon Perles 100 mg q.6 p.r.n. 3. Ceftriaxone 1 g IV q.24 hours. 4. Famotidine 20 mg at bedtime. 5. Heparin 5000 units subcu b.i.d. 6. Humalog sliding scale. 7. Hydralazine 10 mg IV q.6 p.r.n. 8. Zofran 4 mg IV q.6 p.r.n. PAST MEDICAL HISTORY: Includes ESRD secondary to chronic interstitial nephritis currently on peritoneal dialysis, hypertension, type 2 DM - controlled by diet, chronic back pain, DJD, and history of chronic NSAID intake. PAST SURGICAL HISTORY: Status post PD catheter placement, status post cataract surgery, and status post bladder suspension. SOCIAL HISTORY: The patient lives alone. She lives in [place]. She is . Originally from [place]. Used to smoke for 15 years 1 pack a day. Education, primary grade in [place]. 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 Status post multiple blood transfusion. No alcohol. No IV drug abuse. Several children. FAMILY HISTORY: Positive family history of ESRD. One sister on dialysis. ALLERGIES: NONE. TRAUMA: None. IMMUNIZATION: Up-to-date. PHYSICAL EXAMINATION: VITAL SIGNS: Blood pressure is 148/66, heart rate 56, respiratory rate 18, temperature 98.3, and pulse ox 92%. GENERAL: Awake, alert, and comfortable, not in overt distress. SKIN: Adequate turgor. HEENT: The patient has a slightly pale conjunctivae. Anicteric sclerae. NECK: No neck mass. No carotid bruits. No JVD. CHEST: No deformities. LUNGS: Clear breath sounds. No wheezing. No crackles. HEART: Normal sinus rhythm. No murmur. No gallops or rubs. ABDOMEN: Globular and soft. Positive for ascites. EXTREMITIES: No edema. No deformities. Positive for PD catheter in the belly. NEUROLOGIC: Awake and oriented to 3 spheres. Moving all extremities. LABORATORY DATA: Laboratories of September 08, 2018, white count 8.4 and hemoglobin 9.7. Sodium 130, potassium 4.7, chloride 89, carbon dioxide 27, BUN 55, creatinine 12.84, glucose 109, and calcium 8.9. PD fluid cell count was 71. PD fluid was clear. Gram stain negative. Occasional white cell. No bacteria noted. CT scan of the abdomen shows moderate amount of ascites, uterine fibroids, stable right adrenal mass, colonic diverticulosis, nonobstructing periumbilical hernia, and duodenal diverticulum. ASSESSMENT AND PLAN: 1. End-stage renal disease. We will continue current CCPD regimen. 2. No changes will be made with the peritoneal dialysis. 3. Ascites - I have instructed the PD nurse to put a drain bag to drain the ascites to give her some relief of the abdominal discomfort. 4. Anemia. We will resume back Epogen 7500 units subcu every week. There is no evidence of peritonitis based on the PD fluid exam. 5. Overall prognosis remains guarded. If needed, we can always consult GI for evaluation of this ascites. Job ID: [id number]
[2018-09-08] MEDS ORDERED: EPOETIN ALFA-EPBX (ESRD) 10,000 UNIT/ML VIAL SC SCH (12:00)
[2018-09-08] MEDS ORDERED: EPOETIN ALFA-EPBX (ESRD) 4,000 UNIT/ML VIAL SC SCH (12:30)
[2018-09-08] MEDS: Acetaminophen 325 MG TAB PO PRN ×2 (13:15→20:48)
--- NOTE | 2018-09-08 13:59 | PDOC.PN ---
- Subjective Encounter Start Date: 09/08/18 Encounter Start Time: 13:57 Subjective: feels a little better. -: main complaint is of abd distension during PD at night & she does not sleep -: due to worsening abd discomfort - Objective Resuscitation Status - Order Detail: 09/07/18 20:18 Resuscitation Status Routine Resuscitation Status: FULL: Full Resuscitation Discussed with: discussed w patient MAR Reviewed: Yes Vital Signs & Weight: Vital Signs (12 hours) Temp Pulse Resp BP Pulse Ox 09/08/18 12:00 98.5 F 61 16 172/108 H 94 L 09/08/18 08:38 98.4 F 59 L 13 165/93 H 95 09/08/18 08:00 95 09/08/18 03:40 98.3 F 56 L 18 148/66 H 92 L Weight Admit Weight 145 lb 6.4 oz Weight 145 lb 6.4 oz I&O: 09/07/18 09/08/18 09/09/18 06:59 06:59 06:59 Intake Total 430 Balance 430 Result Diagrams: 09/08/18 05:36 09/08/18 05:36 Additional Labs: Accuchecks 09/08/18 05:20 POC Glucose 112 H Microbiology 09/07/18 20:31 Venous blood - Right Hand Blood Culture - Preliminary Specimen has been received and culture in progress. No Growth to date. 09/07/18 20:31 Venous blood - Left Hand Blood Culture - Preliminary Specimen has been received and culture in progress. No Growth to date. 09/07/18 18:15 Paracentesis fluid Body Fluid Culture - Preliminary Phys Exam - Physical Examination Constitutional: NAD HEENT: PERRLA, moist MMs, sclera anicteric, oral pharynx no lesions Neck: no nodes, no JVD, supple, full ROM Respiratory: no wheezing, no rales, no rhonchi, clear to auscultation bilateral Cardiovascular: RRR, no significant murmur Gastrointestinal: soft, non-tender, positive bowel sounds distended.fluid catheter Musculoskeletal: no edema, pulses present Neurological: non-focal, normal sensation, moves all 4 limbs Psychiatric: normal affect, A&O x 3 Skin: no rash Dx/Plan (1) Peritonitis Code(s): K65.9 - PERITONITIS, UNSPECIFIED Status: Acute Comment: likely due to PD catheter. awaitinf Fluid Cx results. cont empiric ABx (2) Abdominal pain Code(s): R10.9 - UNSPECIFIED ABDOMINAL PAIN Status: Acute Comment: due to # 3 (3) Ascites Code(s): R18.8 - OTHER ASCITES Status: Acute (4) Anemia of renal disease Code(s): D63.1 - ANEMIA IN CHRONIC KIDNEY DISEASE Status: Chronic (5) Diabetes type 2, controlled Code(s): E11.9 - TYPE 2 DIABETES MELLITUS WITHOUT COMPLICATIONS Status: Chronic (6) ESRD on peritoneal dialysis Code(s): N18.6 - END STAGE RENAL DISEASE; Z99.2 - DEPENDENCE ON RENAL DIALYSIS Status: Chronic (7) Hypertension Code(s): I10 - ESSENTIAL (PRIMARY) HYPERTENSION Status: Chronic (8) Secondary hyperparathyroidism of renal origin Code(s): N25.81 - SECONDARY HYPERPARATHYROIDISM OF RENAL ORIGIN Status: Chronic - Plan plan discussed w/ family, DVT proph w/SCDs discussed w Dr. damon and GI consult is recommended for ascites -: PD catheter left to drain for symtpomatic relief -: HD stable -: am labs. -: Empric ABx.Home meds restarted.monitor * . Review of Systems - Review of Systems Constitutional: weakness, malaise Cardiovascular: negative: chest pain, palpitations, orthopnea, paroxysmal nocturnal dyspnea, edema, light headedness, other Gastrointestinal: Abdominal Pain. negative: Nausea, Vomiting, Diarrhea, Constipation, Melena, Hematochezia, Other Genitourinary: negative: Dysuria, Frequency, Incontinence, Hematuria, Retention , Other Musculoskeletal: negative: Neck Pain, Shoulder Pain, Arm Pain, Back Pain, Hand Pain, Leg Pain, Foot Pain, Other Neurological: negative: Weakness, Numbness, Incoordination, Change in Speech, Confusion, Seizures, Other - Medications/Allergies Allergies/Adverse Reactions: Allergies Allergy/AdvReac Type Severity Reaction Status Date / Time No Known Allergies Allergy Verified 09/07/18 21:03 Medications: Current Medications Acetaminophen (Tylenol) 650 mg PO Q4H PRN PRN Reason: Headache/Fever/Mild Pain (1-3) Last Admin: 09/08/18 13:15 Dose: 650 mg Amlodipine Besylate (Norvasc) 5 mg PO BID NIKOLAS Last Admin: 09/08/18 08:43 Dose: 5 mg Benzonatate (Tessalon) 100 mg PO Q6H PRN PRN Reason: Cough Bisacodyl (Dulcolax) 10 mg PO DAILYPRN PRN PRN Reason: Constipation Bisacodyl (Dulcolax) 10 mg ME DAILYPRN PRN PRN Reason: Constipation Calcium Acetate (Phoslo) 2,668 mg PO TID [facility] Carvedilol (Coreg) 12.5 mg PO BID-[facility] Last Admin: 09/08/18 09:48 Dose: Not Given Clonidine (Catapres) 0.1 mg PO Q4H PRN PRN Reason: sbp>160 Last Admin: 09/08/18 13:15 Dose: 0.1 mg Dextrose/Water (Dextrose 50%) 25 gm SLOW IVP PRN PRN PRN Reason: Hypoglycemia Epoetin Edson-epbx (Retacrit) 7,500 unit SC Q7D [facility] Last Admin: 09/08/18 13:01 Dose: 7,500 unit Famotidine (Pepcid) 20 mg PO QPM [facility] Last Admin: 09/07/18 21:29 Dose: 20 mg Glucagon (Glucagon) 1 mg IM PRN PRN PRN Reason: Hypoglycemia Guaifenesin (Robitussin Sf) 200 mg PO Q4H PRN PRN Reason: Cough Heparin Sodium (Porcine) (Heparin) 5,000 units SC BID [facility] Last Admin: 09/08/18 08:44 Dose: 5,000 units Hydralazine HCl (Apresoline) 10 mg SLOW IVP Q4H PRN PRN Reason: sbp>170 Last Admin: 09/07/18 22:48 Dose: 10 mg Ceftriaxone Sodium 1 gm/ (Sodium Chloride) 100 mls @ 200 mls/hr IVPB Q24HR [facility] Last Admin: 09/08/18 08:44 Dose: 100 mls Dextrose/Water (D5w) 1,000 mls @ 0 mls/hr IV .Q0M PRN PRN Reason: Hypoglycemia Insulin Human Lispro (Humalog) 0 units SC .MODERATE SLIDING SC PRN PRN Reason: Moderate Correctional Scale Insulin Human Lispro (Humalog) 0 units SC .BEDTIME SLIDING SC PRN PRN Reason: Bedtime Correctional Scale Losartan Potassium (Cozaar) 25 mg PO DAILY [facility] Magnesium Oxide (Magnesium Oxide) 400 mg PO QD PRN PRN Reason: MUSCLE SPASM Melatonin (Melatonin) 3 mg PO HS PRN PRN Reason: Insomnia Morphine Sulfate (Morphine) 2 mg SLOW IVP Q6H PRN PRN Reason: Moderate to Severe Pain (6-10) Last Admin: 09/08/18 02:21 Dose: 2 mg Nitroglycerin (Nitrostat) 0.4 mg SL Q5MIN PRN PRN Reason: Chest Pain Ondansetron HCl (Zofran) 4 mg IVP Q6H PRN PRN Reason: Nausea/Vomiting Pantoprazole Sodium (Protonix) 40 mg IVP DAILY [facility] Senna/Docusate Sodium (Senokot S) 2 tab PO BID PRN PRN Reason: Constipation Sodium Chloride (Flush - Normal Saline) 10 ml IVF Q12HR [facility] Last Admin: 09/08/18 08:44 Dose: 10 ml Sodium Chloride (Flush - Normal Saline) 10 ml IVF PRN PRN PRN Reason: Saline Flush Last Admin: 09/08/18 02:22 Dose: 10 ml
[2018-09-08] MEDS ORDERED: Calcium Acetate 667 MG CAP PO SCH ×2 (15:00)
[2018-09-08] MEDS: hydrALAZINE 20 MG/ML VIAL SLOW IVP PRN (15:03)
[2018-09-08] MEDS: Ondansetron PF 4 MG/2 ML Vial IVP PRN (16:38)
[2018-09-08] MEDS: Calcium Acetate 667 MG CAP PO SCH (17:45)
[2018-09-08] MEDS: Famotidine 20 MG TAB PO SCH (20:47)
[2018-09-08] MEDS ORDERED: Melatonin 3 MG TAB PO PRN (21:00)
--- NOTE | 2018-09-08 22:22 | CON ---
DATE OF CONSULTATION: 09/08/2018 REASON FOR CONSULTATION: Ascites. HISTORY OF PRESENT ILLNESS: Ms. Maddie Devi is a 68-year-old woman who speaks Sami only. She is seen today with the assistance of her daughters who interpret for us. She has a history of chronic kidney disease and has been doing peritoneal dialysis for almost 4 years now, every night at home. She also has known history of uterine fibroids, diabetes, hypertension, and a bladder suspension. She has no prior history of significant gastrointestinal illness. She has no history of liver disease or gallbladder disease. She presented to the hospital complaining of 3 days of discomfort in the left side of the abdomen, primarily the left upper quadrant. This is a crampy type discomfort, not associated with nausea or vomiting or melena or hematochezia. Upon admission, she was found to have normal lipase, normal LFTs stable baseline anemia with hemoglobin of 9.7. She had a CT of the abdomen and pelvis yesterday and this demonstrated a vykh-[id number]-qhznyvny amount of free fluid in the abdomen and a small amount of free air in association with her peritoneal dialysis catheter. The peritoneal fluid was actually tested and sent for culture, which is showing no growth over 12 hours. There were only 71 WBCs, only 4% PMNs. Blood cultures were also negative. She has been receiving empiric antibiotics. She has been evaluated by Nephrology today. Her abdominal discomfort is significantly improved. Appetite is okay. We are consulted due to the free fluid in the abdomen with concern for possible ascites. REVIEW OF SYSTEMS: Full review of systems including constitutional, head, eyes, ears, nose, throat, GI, , cardiovascular, respiratory, musculoskeletal, neurologic systems is negative except as noted in the HPI. PAST MEDICAL HISTORY: Uterine fibroid, diabetes, hypertension, chronic kidney disease, on peritoneal dialysis for almost 4 years now, bladder suspension, bilateral cataract removal, tubal ligation, peritoneal dialysis catheter insertion. SOCIAL HISTORY: No tobacco, alcohol, or drug abuse. FAMILY HISTORY: Negative for malignancy. ALLERGIES: NO KNOWN DRUG ALLERGIES. HOME MEDICATIONS: 1. Magnesium oxide 800 mg p.r.n. 2. Carvedilol 12.5 mg b.i.d. 3. Amlodipine 5 mg b.i.d. 4. Calcium acetate 667 mg four times daily. 5. Losartan 25 mg daily. PHYSICAL EXAMINATION: VITAL SIGNS: Temperature 98.6, pulse 64, blood pressure 196/78, 96% oxygen saturation on room air. GENERAL: A 68-year-old woman lying in bed comfortably, in no acute distress. SKIN: No jaundice, no rashes were palpable. EYE: No scleral icterus. Extraocular movements intact. ENT: Mucous membranes moist. No oral lesions. LYMPHATIC: No submandibular or supraclavicular lymphadenopathy. ENDOCRINE: Thyroid nontender to palpation. HEART: Regular rate and rhythm. LUNGS: Clear to auscultation bilaterally. ABDOMEN: Mild distention. Bowel sounds are present. Soft. Minimal tenderness to palpation in the left side of the abdomen. No guarding or rebound tenderness. Peritoneal dialysis catheter in place in the lower abdomen,site looks good. EXTREMITIES: No peripheral edema. VESSELS: Radial pulses 2+ bilaterally. NEUROLOGIC: Cranial nerves 2-12 intact bilaterally. No focal deficits. LABORATORY STUDIES: WBC is 8.4, hemoglobin is 9.7, platelets 338. Sodium 130, potassium 4.7, BUN 55, creatinine 12.84. Lipase 52. LFTs all normal with total bilirubin 0.8, alkaline phosphatase 58, AST 20, ALT 13, and albumin 3.5. Blood culture showed no growth to date. Peritoneal fluid culture shows no growth at 24 hours. Peritoneal fluid studies show 71 WBCs, only 4% neutrophils. IMAGING STUDIES: CT of the abdomen and pelvis shows cardiomegaly, normal appearing liver, spleen and pancreas. Slight distention of the gallbladder. Kopd-dh-[id number] amount of free fluid in the abdomen and a small amount of free air. Peritoneal dialysis catheter in place, uterine fibroid stable and a stable right adrenal mass. ASSESSMENT/PLAN: 1. Ascites, in the context of peritoneal dialysis. 2. Left-sided abdominal discomfort, improving. The patient really has no evidence of any significant primary liver disease that I can see. Liver appears normal on imaging. She really has no significant risk factors for chronic liver disease. Serologies back in 2015 were negative for hepatitis B and hepatitis C. There is no other evidence of portal hypertension. I think it is by far most likely that the free fluid in the abdomen is just a reflection of her ongoing peritoneal dialysis. There is no evidence of peritonitis that I can see from the fluid studies and she does not really have any peritoneal signs. I discussed with the patient her family that I would not really recommend any aggressive liver workup at this time. Liver biopsy could always could always be considered, but I think it would just expose her to unnecessary risk for a little yield given my low suspicion of primary liver disease. 3. Left-sided abdominal pain, improving. This seems to be a fairly recurrent chronic mild issue for her, which was a bit worse recently. Again, I would not recommend any aggressive investigation in this regard, unless symptoms were to escalate or worsen over time, possibly just represents an acute viral gastroenteritis. 4. GI will sign off at this time, but please call back anytime with questions or concerns. Job ID: [id number]
--- NOTE | 2018-09-09 00:07 | CON ---
DATE OF CONSULTATION: 09/08/2018 CHIEF COMPLAINT: Vaginal bleeding. HISTORY OF PRESENT ILLNESS: The patient is a 68-year-old female with multiple medical problems including end-stage renal disease on dialysis, diabetes, history of uterine fibroid and vaginal bleeding, hypertension. The patient was admitted for abdominal pain secondary to bacterial peritonitis and placed on antibiotics. During her stay, the patient was noted to have some vaginal bleeding and ELECTRIC MOTOR ASSEMBLER was consulted for evaluation. In our conversation, the patient has declined any kind of evaluation in-house. The patient does have a history of a pessary, which has caused bleeding in the past and has been on antibiotics in the past in an effort to resolve the potential sources of this bleeding. She and Dr. Andersen, her primary PHOTOSTATIC COPY MAKER doctor have been actively working on this. The patient reports to me, because she has been having diarrhea and vomiting, the patient has declined ultrasound and any kind of PHOTOSTATIC COPY MAKER exam due to the potential embarrassment of incontinence or vomiting during the exam. We did express understanding, these complaints likely are secondary to her pessary perhaps for an erosion that may be in place. We did explain it is very important for her to follow up with Dr. Andersen with these concerns. We will be sending this report to Dr. Andersen to make her aware of the patient's admission and symptoms. Otherwise, we will be signing off now. I have contacted her primary OB, Dr. Turner and have informed her of our findings and plan. Job ID: [id number]
[2018-09-09 05:32] LABS: #Eosinphils 0.2 thou/uL (0.0-0.7); #Lymphocytes 1.9 thou/uL (1.20-3.40); #Monocytes 0.9 thou/uL (0.11-0.59); %Basophils 0.5 % (0.0-1.0); %Eosinophils 2.7 % (0.0-10.0); %Lymphocytes 23.9 % (21.0-51.0); %Neutrophils 61.9 % (42.0-75.0); Hemoglobin 10.1 g/dL (12.0-16.0); Mean Corpuscular Hemoglobin 26.5 pg (27.0-31.0); Mean Corpuscular Volume 85.6 fL (78.0-98.0); Mean Platelet Volume 6.8 fL (7.4-10.4); Platelet Count 309 thou/uL (130-400); RBC Distribution Width 18.4 % (11.5-14.5); Red Blood Cell (RBC) Count 3.83 mill/uL (4.20-5.40)
[2018-09-09 05:41] LABS: ALT (SGPT) 10 U/L (8-55); AST (SGOT) 14 U/L (5-34); Albumin 2.9 g/dL (3.4-4.8); Alkaline Phosphatase 56 U/L (40-150); Anion Gap 14 mmol/L (10-20); BUN (Urea Nitrogen) 50 mg/dL (9.8-20.1); Bilirubin, Total 0.6 mg/dL (0.2-1.2); Calc. Creatinine Clearance 5 mL/min (70-130); Carbon Dioxide 33 mmol/L (23-31); Chloride 91 mmol/L (98-107); Estimated GFR-MDRD 3; Globulin 3.4 g/dL (2.4-3.5); Glucose 70 mg/dL (80-115); Potassium 4.6 mmol/L (3.5-5.1); Protein, Total 6.3 g/dL (6.0-8.3); Sodium 133 mmol/L (136-145)
[2018-09-09] MEDS: Calcium Acetate 667 MG CAP PO SCH ×2 (08:40→11:36)
[2018-09-09] MEDS: Amlodipine 5 MG TAB PO SCH (08:41)
[2018-09-09] MEDS: Carvedilol 6.25 MG TAB PO SCH (08:41)
[2018-09-09] MEDS: Heparin 5,000 UNITS/ML VIAL SC SCH (08:41)
[2018-09-09] MEDS ORDERED: Amlodipine 5 MG TAB PO SCH ×2 (08:50→09:15)
[2018-09-09] MEDS ORDERED: Losartan 25 MG TAB PO SCH ×3 (09:00→09:15)
[2018-09-09] MEDS ORDERED: Amlodipine 10 MG TAB PO SCH ×2 (09:00→21:00)
[2018-09-09] MEDS ORDERED: Pantoprazole 40 MG VIAL IVP SCH (09:00)
[2018-09-09] MEDS: cefTRIAXone\\ROCEPHIN 1 GM in Sodium Chloride 0.9% 100 ML IVPB SCH (09:39)
--- NOTE | 2018-09-09 09:59 | PRG ---
DATE OF SERVICE: 09/09/2018 SUBJECTIVE: Ms. Devi is a 68-year-old female, who was initially admitted for abdominal pain. Initially, she was cleared for peritonitis. PD fluid studies were all negative. A GI consult has been done, and she has also been cleared by GI. Her abdominal pain is actually much improved. We did drain her ascites and was able to drain about 500 to 600 mL of fluid yesterday. Her abdominal distention is much improved, and abdominal discomfort is also much improved. This morning, she denies any chest pain or shortness of breath. She does complain of itchiness. This most likely is related to her hyperphosphatemia. She is known to have noncompliance with her diet and intake of her phosphate binders. OBJECTIVE: VITAL SIGNS: Blood pressure 167/74, heart rate 61, respiratory rate 18, temperature 98.5, pulse ox 94% on room air. GENERAL: Awake, alert, comfortable, not in overt distress. SKIN: Adequate turgor. HEENT: She has pinkish conjunctivae. Anicteric sclerae. NECK: No neck mass. No carotid bruits. No JVD. CHEST: No deformities. LUNGS: Clear breath sounds. No wheezing. No crackles. HEART: Normal sinus rhythm. No murmur. No gallops. No rubs. ABDOMEN: Globular, soft, and nontender. No masses. Positive for PD catheter. EXTREMITIES: No edema. MEDICATIONS: Medications of September 09, 2018, were reviewed. LABORATORY DATA: Laboratories of September 09, 2018: White count 8, hemoglobin 10.1. Sodium 133, potassium 4.6, chloride 91, carbon dioxide 33, BUN 50, creatinine 12.85, glucose is 70. AST 14, ALT is 10. ASSESSMENT AND PLAN: 1. End-stage renal disease, stable. We will continue current continuous cycling peritoneal dialysis regimen. Adjustment with the peritoneal dialysis regimen was done last night to enhance further ultrafiltration with this patient. We have used 2.5% PD solution. 2. Ascites, much improved - this was drained via the PD catheter. GI has evaluated the patient and recommended simple observation. 3. Anemia. Continuing weekly Epogen. 4. Hyperphosphatemia. I have added Fosrenol 1 g t.i.d., with meals in addition to her PhosLo. She has been counseled regarding diet and intake of her phosphate binders. Job ID: [id number]
[2018-09-09] MEDS: Ondansetron PF 4 MG/2 ML Vial IVP PRN (11:35)
[2018-09-09 11:49] VITALS: TEMP 98
[2018-09-09] MEDS ORDERED: Lanthanum Carbonate 500 mg Tablet PO SCH (12:00)
[2018-09-09 12:29] VITALS: BP 180/71
--- NOTE | 2018-09-10 08:26 | DIS ---
DATE OF ADMISSION: 09/07/2018 DATE OF DISCHARGE: 09/09/2018 CONDITION: At the time of discharge, stable and improved. DISCHARGE DISPOSITION: Home. PRIMARY CARE PHYSICIAN: [facility]. PRIMARY DISCHARGE DIAGNOSES: Abdominal pain due to excessive peritoneal dialysis fluid. Peritonitis ruled out. Chronic vaginal bleed, likely due to vaginal pessary. SECONDARY DISCHARGE DIAGNOSES: 1. End-stage renal disease, on peritoneal dialysis. 2. Ascites secondary to PD fluid. 3. Chronic anemia from chronic kidney disease. 4. Hyperphosphatemia. 5. Hyperkalemia, resolved. 6. Hypertensive urgency, resolved. DISCHARGE MEDICATIONS: Resume home medications as follows: 1. Magnesium oxide 400 mg p.o. p.r.n. 2. Carvedilol 12.5 mg p.o. b.i.d. 3. Calcium acetate 4 capsules p.o. t.i.d. 4. Cozaar 25 mg daily. 5. Amlodipine dose was increased from 5 mg p.o. b.i.d. to 10 mg p.o. b.i.d. 6. Zofran p.r.n. IN-HOUSE CONSULTATION: 1. Nephrology, Dr. Villarreal. 2. Gastroenterology, Dr. Darrin Eddy. 3. CONFERENCE AND EVENT ORGANISER, Dr. Velasquez. PROCEDURES DONE IN THE HOSPITAL: CT scan of the abdomen and pelvis which shows a fibroid in the uterus 4.8 cm in size with a pessary in place and moderate amount of ascites and some free fluid in the abdomen with colonic diverticulosis and periumbilical hernia. HISTORY OF PRESENTING ILLNESS: Ms. Devi is a 68-year-old female with history of end-stage renal disease, on peritoneal dialysis, as well as history of uterine fibroid and diabetes, which she does not take any medication for, and hypertension, who was sent to the emergency room for complaints of abdominal pain. The patient does PD at home and has been feeling that she has poor appetite, has left upper quadrant pain and felt excessively full doing her peritoneal dialysis at every night. In the emergency room, she was hypertensive. She had a CT scan of the abdomen and pelvis done which showed some ascites and there were concerns for peritonitis related to PD catheter. She was admitted to Medicine Team with Nephrology consultation. Please see admission history and physical dictated by myself on 09/07/2018. HOSPITAL COURSE: The patient was started on empiric antibiotics and PD fluid was checked. The cultures of the PD fluid and the blood cultures remained negative. Her blood pressure was under better control. Amlodipine dose was increased. Her abdominal pain improved, but because of the question of abdominal fullness with the PD fluid and ascites, GI was consulted. Dr. Darrin Eddy saw the patient and in his opinion, it was just simply a case of peritoneal fluid leading to patient's discomfort. They did not have anything to offer and he signed off. CONFERENCE AND EVENT ORGANISER was also consulted with regard to her history of vaginal bleed on presentation. Dr. Velasquez saw the patient and it was found out that the patient actually sees Dr. Andersen in the outpatient setting and her vaginal bleed has been worked up and it is secondary to pessary. Unfortunately, the patient or her family did not tell me this information upon presentation. Anyway, Dr. Velasquez also signed off. As of this morning, the patient is ambulatory with the help of a walker. Physical therapist has seen her and she has no outpatient discharge needs with the therapist. Her antibiotics have been stopped. All of her cultures are negative. Her abdominal pain has resolved. Her abdominal fullness has resolved and she will be discharged. All the questions were answered prior to discharge. Dr. Villarreal was contacted and he has cleared the patient for discharge as well. She was seen and examined prior to discharge. PHYSICAL EXAMINATION: VITAL SIGNS: This morning, blood pressure 153/67, heart rate 58, saturating 95% on room air, temperature 98, respirations 18. GENERAL: No acute distress. Awake, alert, and oriented x3. CHEST: Clear to auscultation bilaterally. HEART: Rate and rhythm are regular. FOLLOWUP: She will follow with primary care physician in 1 to 2 weeks and continue peritoneal dialysis as per Dr. Villarreal's instruction. TIME SPENT: Total time spent in the discharge, 38 minutes. Job ID: [id number]
[2018-09-10] MEDS ORDERED: Losartan 25 MG TAB PO SCH (09:00)
== END 2018-09-09 14:33 | disposition home or self-care (01) | DRG 682 ==
LOC: ERS 16:35 → 2NO 20:43
PROVIDERS: ADMIT Internal Medicine; ATTEND Internal Medicine
PROC: 5A1D70Z Performance of Urinary Filtration, Intermittent, Less than 6 Hours Per Day (ICD-10-PCS; principal; 2018-09-08)
DX: I12.0 Hypertensive chronic kidney disease with stage 5 chronic kidney disease or end stage renal disease (principal); N18.6 End stage renal disease; R18.8 Other ascites; N25.81 Secondary hyperparathyroidism of renal origin; E83.39 Other disorders of phosphorus metabolism; I16.0 Hypertensive urgency; E87.5 Hyperkalemia; E83.51 Hypocalcemia; N93.8 Other specified abnormal uterine and vaginal bleeding; G89.29 Other chronic pain; M19.90 Unspecified osteoarthritis, unspecified site; D25.9 Leiomyoma of uterus, unspecified; D63.1 Anemia in chronic kidney disease; E11.22 Type 2 diabetes mellitus with diabetic chronic kidney disease; Z99.2 Dependence on renal dialysis; Z79.4 Long term (current) use of insulin; Z91.15 Patient's noncompliance with renal dialysis; Z98.42 Cataract extraction status, left eye; Z98.41 Cataract extraction status, right eye; Z98.51 Tubal ligation status
CPT/HCPCS: 36415; 36416; 74177; 80048; 80053; 81003; 81015; 83690; 85025; 85060; 87040; 87070; 87205; 89051; C9113; J0360; J0696; J1644; J2270; J2405; J3490; Q5105

== ENCOUNTER 2018-10-19 10:38 | Observation (INO) | payer BC ==
[2018-10-19 11:31] LABS: #Eosinphils 0.1 thou/uL (0.0-0.7); #Lymphocytes 1.4 thou/uL (1.20-3.40); #Monocytes 0.6 thou/uL (0.11-0.59); #Neutrophils 6.6 thou/uL (1.40-6.50); %Basophils 0.4 % (0.0-1.0); %Eosinophils 1.4 % (0.0-10.0); %Lymphocytes 15.8 % (21.0-51.0); %Monocytes 7.2 % (0.0-10.0); %Neutrophils 75.1 % (42.0-75.0); Hemoglobin 12.4 g/dL (12.0-16.0); Mean Corpuscular HGB CONC 32.1 g/dL (32.0-36.0); Mean Corpuscular Hemoglobin 26.9 pg (27.0-31.0); Mean Corpuscular Volume 83.7 fL (78.0-98.0); Mean Platelet Volume 7.5 fL (7.4-10.4); Platelet Count 273 thou/uL (130-400); RBC Distribution Width 18.1 % (11.5-14.5); White Blood Cell (WBC) Count 8.8 thou/uL (4.8-10.8)
--- NOTE | 2018-10-19 11:31 | RAD ---
XR Chest 1 View Portable HISTORY: Altered mental status, patient on peritoneal dialysis COMPARISON: 02/23/2017 FINDINGS: The heart is enlarged. The aorta is tortuous. The lungs are expanded without lobar consolid ation, pneumothoraces, aura pulmonary edema or pleural effusions. IMPRESSION: No radiographic evidence of acute cardiopulmonary process.
--- NOTE | 2018-10-19 11:34 | CT ---
EXAM: CT brain without contrast HISTORY: Altered mental status COMPARISON: None TECHNIQUE: Multiple contiguous axial images were obtained and a CT of the brain without contrast. FINDINGS: The brain is normal in morphology and attenuation without focal lesions or confluent areas of infarction. There is no evidence of hydrocephalus, intracranial hemorrhage, or extra-axial fluid collection. The calvarium and overlying soft tissues are unremarkable. The visualized paranasal sinuses and masto id air cells are well aerated. IMPRESSION: No evidence of acute intracranial abnormality
[2018-10-19 11:54] LABS: ALT (SGPT) 11 U/L (8-55); AST (SGOT) 20 U/L (5-34); Albumin 3.5 g/dL (3.4-4.8); Alkaline Phosphatase 65 U/L (40-150); Anion Gap 19 mmol/L (10-20); BUN (Urea Nitrogen) 56 mg/dL (9.8-20.1); Bilirubin, Total 0.8 mg/dL (0.2-1.2); Calc. Creatinine Clearance 0 mL/min (70-130); Calcium 10.6 mg/dL (7.8-10.44); Carbon Dioxide 29 mmol/L (23-31); Chloride 93 mmol/L (98-107); Estimated GFR-MDRD 3; Globulin 3.8 g/dL (2.4-3.5); Glucose 117 mg/dL (80-115); Potassium 5.7 mmol/L (3.5-5.1); Protein, Total 7.3 g/dL (6.0-8.3); Sodium 135 mmol/L (136-145)
[2018-10-19 12:38] LABS: CKMB 3.3 ng/mL (0-6.6)
[2018-10-19] MEDS ORDERED: Loperamide HCl 2 MG CAP PO PRN (13:53)
[2018-10-19] MEDS ORDERED: hydrALAZINE 20 MG/ML VIAL SLOW IVP PRN (13:53)
[2018-10-19] MEDS ORDERED: Loratadine 10 MG TAB PO PRN (13:53)
[2018-10-19] MEDS ORDERED: Senokot S 8.6-50 MG TAB PO PRN (13:53)
[2018-10-19] MEDS ORDERED: Labetalol HCl 100 MG/20 ML VIAL SLOW IVP PRN (13:53)
[2018-10-19] MEDS ORDERED: Calcium Carbonate 500 MG ChewTAB PO PRN (13:53)
[2018-10-19] MEDS ORDERED: Diabetic Tussin 200 MG/10 ML UDCUP PO PRN (13:53)
[2018-10-19] MEDS ORDERED: Acetaminophen 325 MG TAB PO PRN (13:53)
[2018-10-19] MEDS ORDERED: Bisacodyl 10 MG SUPP PR PRN (13:53)
[2018-10-19] MEDS ORDERED: Sodium Chloride 0.65% Nasal 44 ML BOT EA NARE PRN (13:53)
[2018-10-19] MEDS ORDERED: cloNIDine 0.1 MG TAB PO PRN (13:53)
[2018-10-19] MEDS ORDERED: Ondansetron PF 4 MG/2 ML Vial IVP PRN (13:53)
[2018-10-19] MEDS ORDERED: Zolpidem Tartrate 5 MG TAB PO PRN (13:53)
[2018-10-19] MEDS ORDERED: Ondansetron ODT 4 MG TAB PO PRN (13:53)
[2018-10-19] MEDS ORDERED: Cepastat Lozenges 1 LOZ PO PRN (13:53)
[2018-10-19] MEDS ORDERED: HYDROcodone/Acetaminophen 5/325 mg Tablet PO PRN (13:53)
[2018-10-19] MEDS ORDERED: Temazepam 15 MG CAP PO PRN (13:53)
[2018-10-19 14:09] VITALS: BMI 24.5
--- NOTE | 2018-10-19 14:13 | HP ---
PRIMARY CARE PHYSICIAN: [facility]. REASON FOR ADMISSION: Encephalopathy. HISTORY OF PRESENT ILLNESS: A 68-year-old female, who has ESRD on peritoneal dialysis, who was brought to emergency room by family member for altered mental status. The patient had mechanical fall at home and subsequently, she had bruits on her left side of her back as well as left forearm. Later on day, the patient was appeared little bit better to the patient's son, but the patient was complaining of weak, fatigue, tired, and itching. She was not feeling good. Subjectively this morning when the patient's son went to her house, he noticed that the patient was acting weird. She was disoriented. She was not her normal. The patient did not take any medication this morning. The patient was feeling more fatigue, more tired and that is why son was worried about and brought her to emergency room for evaluation. Today in the emergency room, the patient had CT of brain, which was negative for any acute process. Chest x-ray was unremarkable. The patient was doing peritoneal dialysis earlier today, which she does every day basis, which was interrupted because the patient was complaining of abdominal pain. Normally, the patient gets around by herself, but for last couple of days, the patient was feeling more weak, fatigued, and she was requiring lot of assistance. The patient was not having any fever or chills. She was not complaining of any chest pain, but she was feeling mild shortness of breath today. In the emergency room, the patient's blood pressure was very high. She was appeared chronically ill and older than her stated age. REVIEW OF SYSTEMS: CONSTITUTIONAL: Negative for weight loss or gain, ability to conduct usual activities. SKIN: Negative for rash, itching. EYES: Negative for double vision, pain. ENT/MOUTH: Negative for nose bleeding, neck stiffness, pain, tenderness. CARDIOVASCULAR: Negative for palpitations, dyspnea on exertion, orthopnea. RESPIRATORY: Negative for shortness of breath, wheezing, cough, hemoptysis, fever or night sweats. GASTROINTESTINAL: Negative for poor appetite, abdominal pain, heartburn, nausea, vomiting, constipation, or diarrhea. GENITOURINARY: Negative for urgency, frequency, dysuria, nocturia. MUSCULOSKELETAL: Negative for pain, swelling. NEUROLOGIC/PSYCHIATRIC: Negative for anxiety, depression. ALLERGY/IMMUNOLOGIC: Negative for skin rash, bleeding tendency. Please see my HPI for pertinent positives and negatives. All other review of systems reviewed and negative except as mentioned in HPI. Above-mentioned review of system is not reliable because the patient's level of cognitive status. PAST MEDICAL HISTORY: ESRD, on peritoneal dialysis; history of uterine fibroid; diabetes type 2; hypertension; dyslipidemia; secondary hyperparathyroidism of renal origin. PAST SURGICAL HISTORY: Peritoneal dialysis catheter placement, bilateral cataract surgery, tubal ligation, and bladder suspension. PAST PSYCHIATRIC HISTORY: Reviewed and negative. SOCIAL HISTORY: The patient lives at home with family. Family is very supportive. No history of tobacco, alcohol, or illicit drug abuse. FAMILY HISTORY: No strong family history of premature coronary artery disease, stroke, or cancer. Hypertension and diabetes run among several family members. One sister also has ESRD, on dialysis. ALLERGIES: NO KNOWN DRUG ALLERGY. CURRENT HOME MEDICATIONS: 1. PhosLo 667 mg four tablets t.i.d. 2. Coreg 12.5 mg twice daily. 3. Losartan 25 mg daily. 4. Magnesium oxide 400 mg daily. 5. Amlodipine 10 mg b.i.d. 6. Zofran p.r.n. basis. EMERGENCY ROOM COURSE: Reviewed. PHYSICAL EXAMINATION: VITAL SIGNS: Currently, blood pressure 221/90, pulse 68, respiratory rate 23, temperature 98.7, and saturation 97% on room air. Weight 62 kg. GENERAL: The patient is currently alert, awake, follows simple commands. No obvious acute distress. HEENT: Head; normocephalic and atraumatic. Eyes; pupils round and reactive to light. Extraocular muscle intact. ENT; oropharynx within normal limits. Moist mucous membranes. No oral lesion. No pharyngeal erythema. No exudate. NECK: Supple. No JVD. No thyromegaly. No carotid bruit. No jugular venous distention. LUNGS: Clear to auscultation without any rhonchi or rales. CARDIAC: S1 and S2 appears regular. No murmur. No gallop. No rub. ABDOMEN: Soft. Bowel sounds present. Nontender. Nondistended. No organomegaly. No mass. No suprapubic tenderness. BACK: Unremarkable. No CVA tenderness. EXTREMITIES: Upper extremities; passive movement of all joints are normal. Lower. Extremities; no edema. Good distal pulsation. SKIN: No skin rash. HEMATOLOGICAL SYSTEM: No lymphadenopathy. NEUROLOGIC: Nonfocal examination. SIGNIFICANT LABORATORY DATA: CT of brain based on my review, no acute intracranial process. Chest x-ray based on my review, no acute cardiopulmonary process. CBC; WBC 8.8, hemoglobin 12.4, platelet 273. BMP; sodium 135, potassium 5.7, chloride 93, carbon dioxide 29, anion gap 19, BUN 56, creatinine 13.68, glucose 117, calcium 10.6. LFT; AST 20, ALT 11, alkaline phosphatase 65, albumin 3.5, CK-MB 3.3, and troponin 0.049. ASSESSMENT AND PLAN: Impression: 1. Encephalopathy. This patient has encephalopathy, most likely multifactorial etiology including uremia as well as we need to rule out peritoneal dialysis related infection. The patient has hyperkalemia and elevated BUN and creatinine that also contributes to the patient's altered mental status. The patient also has uremia symptoms. The patient's CT brain is negative and her examination is negative for any focal neurological deficit. At this point, we will closely monitor while in the hospital and try to rule out underlying etiology. 2. Rule out peritoneal dialysis related catheter infection. The patient was recently treated for PD related infection in last admission. We will ask Nephrology to do peritoneal dialysis and send peritoneal fluid for culture result. At this point, we will empirically start Rocephin 1 g q.24 hours. 3. Hyperkalemia, likely due to end-stage renal disease. The patient will need peritoneal dialysis. 4. Elevated troponin. We will do serial cardiac enzymes x3. 5. Uremia. The patient will need aggressive peritoneal dialysis and if needed, the patient may need to convert to hemodialysis as the patient has myoclonus and uremia symptoms with pruritus. 6. Hypertensive urgency. We will start Coreg 12.5 mg twice daily. We will change to Procardia XL 60 mg p.o. daily and clonidine, hydralazine, and labetalol p.r.n. basis. 7. Secondary hyperparathyroidism of renal origin. We will continue PhosLo 3 times daily. 8. Deep venous thrombosis prophylaxis, not needed because we are expecting discharge in 24 hours. 9. Gastrointestinal prophylaxis, Pepcid 20 mg daily. CODE STATUS: The patient is full code. The patient's son is surrogate decision maker. DISPOSITION PLAN: Based on clinical course, we are expecting the patient's stay in hospital at least 24 hours. Depending upon clinical course, we will decide whether the patient needs to be inpatient or just observation. Job ID: [id number]
[2018-10-19] MEDS ORDERED: Amlodipine 5 MG TAB PO SCH ×2 (15:45→21:00)
[2018-10-19] MEDS: cefTRIAXone\\ROCEPHIN 1 GM in Sodium Chloride 0.9% 100 ML IVPB SCH (16:17)
[2018-10-19] MEDS: Calcium Acetate 667 MG CAP PO SCH (16:45)
[2018-10-19] MEDS: Carvedilol 6.25 MG TAB PO SCH (16:45)
[2018-10-19] MEDS ORDERED: ALPRAZolam 0.25 MG TAB PO SCH (17:45)
[2018-10-19 20:51] LABS: Troponin I 0.062 ng/mL (< 0.028)
[2018-10-19 23:53] LABS: Troponin I 0.053 ng/mL (< 0.028)
[2018-10-20 00:51] LABS: BF Color Colorless; Body Fluid Source Peritoneal Fluid; Clarity Clear (Clear); Tube # 1
[2018-10-20 00:58] LABS: BF RBC Count - Manual 0 /cumm; BF WBC/Nonhematics Ct. - Manua 3 /cumm
[2018-10-20 05:30] LABS: #Eosinphils 0.1 thou/uL (0.0-0.7); #Lymphocytes 1.5 thou/uL (1.20-3.40); #Monocytes 0.8 thou/uL (0.11-0.59); #Neutrophils 4.9 thou/uL (1.40-6.50); %Basophils 0.7 % (0.0-1.0); %Eosinophils 1.2 % (0.0-10.0); %Lymphocytes 20.2 % (21.0-51.0); %Monocytes 10.6 % (0.0-10.0); %Neutrophils 67.2 % (42.0-75.0); Mean Corpuscular HGB CONC 30.6 g/dL (32.0-36.0); Mean Corpuscular Hemoglobin 26.1 pg (27.0-31.0); Mean Corpuscular Volume 85.4 fL (78.0-98.0); Mean Platelet Volume 7.8 fL (7.4-10.4); Platelet Count 247 thou/uL (130-400); RBC Distribution Width 18.8 % (11.5-14.5); Red Blood Cell (RBC) Count 4.58 mill/uL (4.20-5.40); White Blood Cell (WBC) Count 7.3 thou/uL (4.8-10.8)
[2018-10-20 05:49] LABS: ALT (SGPT) 11 U/L (8-55); AST (SGOT) 20 U/L (5-34); Albumin 3.1 g/dL (3.4-4.8); Alkaline Phosphatase 57 U/L (40-150); Anion Gap 20 mmol/L (10-20); BUN (Urea Nitrogen) 57 mg/dL (9.8-20.1); Bilirubin, Total 0.7 mg/dL (0.2-1.2); Calc. Creatinine Clearance 4 mL/min (70-130); Carbon Dioxide 26 mmol/L (23-31); Chloride 96 mmol/L (98-107); Estimated GFR-MDRD 3; Globulin 3.3 g/dL (2.4-3.5); Glucose 82 mg/dL (80-115); Potassium 5.6 mmol/L (3.5-5.1); Protein, Total 6.4 g/dL (6.0-8.3); Sodium 136 mmol/L (136-145)
--- NOTE | 2018-10-20 08:28 | CON ---
DATE OF CONSULTATION: HISTORY OF PRESENT ILLNESS: Ms. Devi is a 68-year-old female with ESRD, admitted for confusion. This morning, she is mentating a little better. She recognized people around. She is responding appropriately to my questioning. We are following her up for maintenance peritoneal dialysis. She underwent peritoneal dialysis last night without any difficulty. She is doing well. No other complaints. REVIEW OF SYSTEMS: No chest pain. Occasional confusion. No nausea. No vomiting. No diarrhea. No constipation. No productive cough. No fever or chills. No abdominal pain. No gross hematuria. No dysuria. No urinary frequency. No fever or chills. No hematochezia. No melena. No hematemesis. MEDICATIONS: Medications of October 20, 2018; 1. Amlodipine 5 mg p.o. b.i.d. 2. Aspirin 325 mg once a day. 3. Calcium acetate 1334 mg t.i.d. with meals. 4. Carvedilol 12.5 mg b.i.d. 5. Ceftriaxone 1 g IV daily. 6. Clonidine 0.1 mg q.4 p.r.n. 7. Famotidine 20 mg tablet once a day. 8. Hydralazine p.r.n. 9. Hydrocodone one tab q.4 p.r.n. 10. Nifedipine 60 mg daily. 11. Ambien 5 mg at bedtime p.r.n. PAST MEDICAL HISTORY: 1. 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 2. Longstanding hypertension. 3. Type 2 DM, controlled by diet. 4. Chronic back pain. 5. DJD. 6. Chronic NSAID intake. PAST SURGICAL HISTORY: Status post PD catheter placement, status post cataract surgery, and status post bladder suspension. SOCIAL HISTORY: The patient lives in [place]. Lives with the , , originally from [place]. Used to smoke 15 years 1 pack a day. Education, primary grade in [place]. 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 Status post multiple blood transfusion. No IV drug abuse. Several children. No alcohol. No drugs. FAMILY HISTORY: Positive family history of ESRD. One sister on dialysis. ALLERGIES: NONE. TRAUMA: None. IMMUNIZATIONS: Up-to-date. PHYSICAL EXAMINATION: VITAL SIGNS: Blood pressure is noted at 176/90, heart rate 62, respiratory rate 18, temperature 98.2, and pulse ox 97%. GENERAL: Awake, alert, comfortable, sitting, not in any distress. SKIN: Adequate turgor. HEENT: Pinkish conjunctivae. Anicteric sclerae. NECK: No neck mass. No carotid bruits. No JVD. CHEST: No deformities. LUNGS: Clear breath sounds. HEART: Normal sinus rhythm. No murmur. No gallops. No rubs. ABDOMEN: Globular, soft, and nontender. No masses. She has a PD catheter in the abdomen. EXTREMITIES: No edema. No deformities. NEUROLOGICAL: Awake and oriented to 3 spheres. Moving all extremities. No tremors. No asterixis. LABORATORY DATA: Laboratories of October 20, 2018; white count 7.3, hemoglobin 12, and hematocrit 29.2. Sodium 136, potassium 5.6, chloride 96, carbon dioxide 26, BUN 57, creatinine 13.8, glucose 82, calcium 10, AST 20, ALT 11, and albumin 3.1. ASSESSMENT AND PLAN: 1. End-stage renal disease, stable. We will continue current CCPD regimen. Tolerating current peritoneal dialysis. No changes to be made. She is tolerating ultrafiltration. 2. Confusion - this could be underlying metabolic encephalopathy. The patient is mentating better today. 3. Hypertension. Continue current BP medications. Since the patient is on nifedipine, I discontinued her amlodipine. Overall, agree with current management. Recheck CBC and basic metabolic panel. Job ID: [id number]
[2018-10-20] MEDS ORDERED: NIFEdipine XL 60 MG TAB PO SCH (09:00)
[2018-10-20] MEDS ORDERED: Famotidine 20 MG TAB PO SCH (09:00)
[2018-10-20] MEDS ORDERED: Aspirin 325 MG TAB PO SCH (09:00)
[2018-10-20] MEDS: Calcium Acetate 667 MG CAP PO SCH ×2 (10:15→12:12)
[2018-10-20] MEDS: Carvedilol 6.25 MG TAB PO SCH (10:16)
--- NOTE | 2018-10-20 11:01 | DIS ---
DATE OF ADMISSION: 10/19/2018 DATE OF DISCHARGE: 10/20/2018 PRIMARY CARE PHYSICIAN: Miguel Angel Sharma. DISCHARGE DISPOSITION: Home. PRIMARY DISCHARGE DIAGNOSES: Acute metabolic encephalopathy, resolved; hyperkalemia; elevated troponin. SECONDARY DISCHARGE DIAGNOSES: Secondary hyperparathyroidism of renal origin, hypertension, end-stage renal disease on peritoneal dialysis, diabetes type 2, anemia of renal disease. PRIMARY PROCEDURE/OPERATION: Peritoneal dialysis. RADIOLOGIST INVESTIGATION: CT of brain negative. Chest x-ray normal. SIGNIFICANT LABORATORY DATA: WBC 7.3, hemoglobin 12.0, platelet 247. Sodium 136, potassium 5.6, BUN 57, creatinine 13.89. LFT normal. Troponin 0.053. Peritoneal fluid negative for any infection. Peritoneal fluid culture is negative. DISCHARGE MEDICATIONS: 1. PhosLo 4 capsules p.o. t.i.d. 2. Coreg 12.5 mg b.i.d. 3. Aspirin 81 mg daily. 4. Pepcid 20 mg daily. 5. Procardia XL 60 mg p.o. daily. CONTRAINDICATION: None. CODE STATUS: Full code. INPATIENT COMPOSITE BOND WORKER: Dr. Villarreal. TEST RESULT PENDING ON DISCHARGE: None. ALLERGIES: NO KNOWN DRUG ALLERGY. DISCHARGE PLAN: Posthospital, the patient will follow up with primary care physician and Dr. Villarreal as instructed. HOSPITAL COURSE: A 68-year-old female, who is a dialysis patient. She is getting peritoneal dialysis at home. The patient was appeared confused by family member. The patient was also having myoclonic jerking movement. The patient was also having itching, nausea and vomiting, and poor appetite. The patient was experiencing uremia symptoms. She is getting peritoneal dialysis, but seems no longer effective. The patient has also hyperkalemia and that is why during this admission, we discontinued losartan to prevent hyperkalemia. Dietary education given. The patient was admitted to the hospital. Initially, she was having hypertensive urgency because she did not take her blood pressure medication that was also improved while in hospital. Today, the patient is appearing back to normal per family member. The patient does not have any complaints. This patient has peritoneal dialysis, which is no longer effective and that is why we discussed with the family member about possible switching to hemodialysis and they are also okay with that decision. They will discuss with Dr. Villarreal after discharge and Dr. Villarreal will arrange outpatient hemodialysis if family member okay. We have ruled out infection from peritoneal dialysis. At this time, initially she was given Rocephin, but she did not require any antibiotic on discharge. At this point, the patient is back to her baseline and normal level. I have seen and examined the patient at bedside today. Plan of care discussed with the patient and family member at bedside. Her examination is unchanged. Her review of system is negative. family advised to repeat BMP in 3-5 days and follow up with PCP Job ID: [id number] [facility]
[2018-10-20] MEDS ORDERED: hydrALAZINE 25 MG TAB PO SCH ×2 (12:00→17:00)
[2018-10-20 12:12] VITALS: TEMP 97.8
[2018-10-20 12:30] VITALS: BP 182/83
[2018-10-20] MEDS: cefTRIAXone\\ROCEPHIN 1 GM in Sodium Chloride 0.9% 100 ML IVPB SCH (15:10)
--- NOTE | 2018-10-26 17:16 | EKG ---
Test Reason : Blood Pressure : / mmHG Vent. Rate : 067 BPM Atrial Rate : 067 BPM P-R Int : 132 ms QRS Dur : 086 ms QT Int : 456 ms P-R-T Axes : 030 -27 089 degrees QTc Int : 481 ms Normal sinus rhythm Prolonged QT Abnormal ECG Confirmed by MORENITA DYER ([id number]), deputy editor in chief ELIAZAR GANDARA ([id number] on 10/26/2018 5:15:36 PM Referred By: Confirmed By:MORENITA DYER
== END 2018-10-20 15:08 | disposition home or self-care (01) ==
LOC: ERS 10:38 → 2NO 12:15
PROVIDERS: ADMIT Internal Medicine; ATTEND Internal Medicine
DX: G93.41 Metabolic encephalopathy (principal); I16.0 Hypertensive urgency; I12.0 Hypertensive chronic kidney disease with stage 5 chronic kidney disease or end stage renal disease; E11.22 Type 2 diabetes mellitus with diabetic chronic kidney disease; N18.6 End stage renal disease; D63.1 Anemia in chronic kidney disease; N25.81 Secondary hyperparathyroidism of renal origin; E87.5 Hyperkalemia; R79.89 Other specified abnormal findings of blood chemistry; Z79.82 Long term (current) use of aspirin; Z79.899 Other long term (current) drug therapy; Z99.2 Dependence on renal dialysis
CPT/HCPCS: 36415; 36416; 70450; 71045; 80053; 82553; 84484; 85025; 87070; 87205; 89051; 90945; 93005; G0257; J0360; J0696; J3490

== ENCOUNTER 2018-10-21 06:05 | Inpatient (IN) | payer BC ==
--- NOTE | 2018-10-21 07:47 | CT ---
CT BRAIN WITHOUT CONTRAST: HISTORY:Fall, headache COMPARISON:10/19/2018 FINDINGS: There are foci of decreased attenuation in the periventricular white matter, consistent with chronic small vessel ischemic disease. No evidence of acute infarct, hemorrhage, midline shift or abnormal extra-axial fluid collections is seen. The ventricular size is appropriate and the basilar cisterns are patent. The bony calvarium is intact. There is mucosal disease in the paranasal sinuses. There is a scalp contusion in the left posterior p arietal region. IMPRESSION: No CT evidence of acute intracranial process.
[2018-10-21 08:18] LABS: #Eosinphils 0.1 thou/uL (0.0-0.7); #Lymphocytes 1.4 thou/uL (1.20-3.40); #Monocytes 0.9 thou/uL (0.11-0.59); #Neutrophils 9.7 thou/uL (1.40-6.50); %Basophils 0.2 % (0.0-1.0); %Eosinophils 1.1 % (0.0-10.0); %Lymphocytes 11.5 % (21.0-51.0); %Monocytes 7.4 % (0.0-10.0); %Neutrophils 79.9 % (42.0-75.0); Hemoglobin 11.3 g/dL (12.0-16.0); Mean Corpuscular HGB CONC 31.7 g/dL (32.0-36.0); Mean Corpuscular Hemoglobin 25.9 pg (27.0-31.0); Mean Corpuscular Volume 81.8 fL (78.0-98.0); Mean Platelet Volume 7.3 fL (7.4-10.4); Platelet Count 278 thou/uL (130-400); RBC Distribution Width 17.9 % (11.5-14.5); Red Blood Cell (RBC) Count 4.35 mill/uL (4.20-5.40); White Blood Cell (WBC) Count 12.2 thou/uL (4.8-10.8)
[2018-10-21 08:23] LABS: INR-International Normal Ratio 1.1; Prothrombin Time 13.8 SEC (12.0-14.7)
--- NOTE | 2018-10-21 08:39 | CT ---
CT CERVICAL SPINE WITHOUT CONTRAST: Date: 10/21/18 COMPARISON: None. HISTORY: Fall with neck pain. TECHNIQUE: Multiple contiguous axial images were obtained in a CT of the cervical spine without contrast. Sagitt al and coronal reformats were performed. FINDINGS: Vertebral bodies and intervertebral discs demonstrate normal height and alignment without fracture or subluxation. No prevertebral soft tissue swelling is seen. The posterior facets are well aligned. Normal alignment of the skull base with the cervical spine is seen. Vascular calcifications are seen in the carotid arteries. IMPRESSION: No evidence of acute osseous abnormality of the cervical spine. POS: CET
[2018-10-21 08:42] LABS: ALT (SGPT) 14 U/L (8-55); AST (SGOT) 27 U/L (5-34); Albumin 3.5 g/dL (3.4-4.8); Alkaline Phosphatase 61 U/L (40-150); Anion Gap 22 mmol/L (10-20); BUN (Urea Nitrogen) 53 mg/dL (9.8-20.1); Bilirubin, Total 0.9 mg/dL (0.2-1.2); CK (CPK) 289 U/L (29-168); Calc. Creatinine Clearance 0 mL/min (70-130); Calcium 10.5 mg/dL (7.8-10.44); Carbon Dioxide 26 mmol/L (23-31); Chloride 92 mmol/L (98-107); Estimated GFR-MDRD 3; Globulin 3.5 g/dL (2.4-3.5); Glucose 105 mg/dL (80-115); Lipase 45 U/L (8-78); Potassium 5.7 mmol/L (3.5-5.1); Sodium 134 mmol/L (136-145)
[2018-10-21 08:46] LABS: Bacteria/HPF None Seen HPF (None Seen); Bilirubin Negative (Negative); Blood, Urine 1+ (Negative); Clarity Clear (Clear); Glucose, Urine (Dipstick) 100 mg/dL (Negative); Leukocyte Negative Leu/uL (Negative); Nitrite Negative (Negative); Protein, Urine (Dipstick) 200 mg/dL (Neg-Trace); RBC/HPF 0-3 HPF (0-3); Squamous Epithelial 0-3 HPF (0-3); Urobilinogen Normal mg/dL (Less than 2); WBC/HPF 0-3 HPF (0-3)
--- NOTE | 2018-10-21 08:54 | RAD ---
SINGLE VIEW CHEST: Date: 10/21/18 COMPARISON: 10/19/18. HISTORY: Tripped and fell, with chest pain. FINDINGS: Single view of the chest shows an enlarged but stable cardiomediastinal silhouette. There is no evide nce of consolidation, mass, or pleural effusion. IMPRESSION: Stable cardiomegaly. POS: CET
[2018-10-21] MEDS ORDERED: Cefepime 1 GM VIAL ONE (09:11)
[2018-10-21] MEDS ORDERED: hydrALAZINE 20 MG/ML VIAL ONE (09:11)
[2018-10-21] MEDS ORDERED: Ondansetron PF 4 MG/2 ML Vial IVP PRN ×2 (11:44→11:49)
[2018-10-21] MEDS ORDERED: Ondansetron ODT 4 MG TAB SL PRN (11:44)
[2018-10-21] MEDS ORDERED: Acetaminophen 325 MG TAB PO PRN (11:49)
[2018-10-21] MEDS ORDERED: Ondansetron ODT 4 MG TAB PO PRN (11:49)
[2018-10-21] MEDS ORDERED: Calcium Carbonate 500 MG ChewTAB PO PRN (11:49)
[2018-10-21] MEDS ORDERED: Senokot S 8.6-50 MG TAB PO PRN (11:49)
[2018-10-21] MEDS ORDERED: Nitroglycerin 0.4 MG TAB (25 Tab Bottle) PO PRN (12:17)
[2018-10-21] MEDS ORDERED: Aspirin 81 mg Enteric Coated Tablet PO SCH (12:30)
--- NOTE | 2018-10-21 13:03 | HP ---
CHIEF COMPLAINT: Peritoneal dialysis catheter malfunction with altered mentation. HISTORY OF PRESENT ILLNESS: The patient is a 68-year-old female with end-stage renal disease, on peritoneal dialysis, who was brought into the emergency room with above complaints. The patient was discharged from this facility yesterday with a diagnosis of acute metabolic encephalopathy along with hyperkalemia and elevated troponins. Her symptoms were attributed to uremia. Losartan was discontinued due to hyperkalemia. Dietary education was provided. Dr. Villarreal is in the process of transitioning the patient to hemodialysis as outpatient. Her mentation improved and subsequently she was discharged home yesterday. Last night, the patient had a fall while she was connected to peritoneal dialysis, the heard her fall. The dialysis catheter got disconnected. She has been having recurrent falls recently. The family also reported that she was confused and not following commands. There was no focal deficit, facial droop, weakness, or numbness of any of the extremity more than the other reported. She was subsequently brought to the emergency room. PAST MEDICAL HISTORY: 1. End-stage renal disease, currently on peritoneal dialysis. She used to be on hemodialysis in the past. 2. Diabetes mellitus, type 2. 3. Hypertension. 4. Dyslipidemia. 5. Secondary hyperparathyroidism. 6. History of uterine fibroid. PAST SURGICAL HISTORY: 1. Peritoneal dialysis catheter placement. 2. History of dialysis fistula placement. 3. Bilateral cataract surgery. 4. Tubal ligation. 5. Bladder suspension. ALLERGIES: NO KNOWN DRUG ALLERGIES. CURRENT HOME MEDICATIONS: The patient was discharged on following medications yesterday. 1. Procardia XL 60 mg daily. 2. Hydralazine 25 mg 3 times a day. 3. Pepcid 20 mg daily. 4. Aspirin 81 mg daily. 5. Carvedilol 12.5 mg b.i.d. 6. Calcium acetate 4 capsules of 667 mg 3 times a day. SOCIAL HISTORY: The patient currently lives at home with her family. Her is the primary decision maker. No current use of smoking, alcohol, or drug use. FAMILY HISTORY: Positive for hypertension and diabetes. REVIEW OF SYSTEMS: Cannot be reliably obtained from the patient due to current cognitive status. PHYSICAL EXAMINATION: VITAL SIGNS: In the emergency room, temperature 98.5, respirations of 20, pulse of 74, blood pressure 164/92, O2 saturation of 95% on room air. GENERAL: A 68-year-old female with altered mentation. HEENT: Head, atraumatic and normocephalic. Sclerae anicteric. Dry mucous membranes. No oral lesion. NECK: Supple. No JVD appreciated. No carotid bruit. LUNGS: Clear to auscultation bilaterally with diminished air entry at bilateral bases. No accessory muscle use. No rhonchi or wheezing. HEART: S1 and S2 present. Regular rate and rhythm. No rubs or gallops. ABDOMEN: Soft, distended. Bowel sounds present. Peritoneal dialysis catheter noted without any erythema or swelling at the peritoneal dialysis catheter site. There was no damage to the peritoneal tube noted. The other part which was connected to the peritoneal dialysis machine was brought by the family. EXTREMITIES: No calf tenderness. Trace bilateral lower extremity edema. SKIN: Warm and dry. NEUROLOGY: Exam is limited due to current mentation; however, the patient is moving all of her extremities on verbal commands. No focal deficit noted. PSYCHIATRY: As discussed above. LYMPH NODES: No palpable lymph nodes in the neck. PERIPHERAL/VASCULAR: Radial pulses are palpable bilaterally. MUSCULOSKELETAL: No joint swelling or tenderness. LABORATORY FINDINGS: WBC 12.2 with hemoglobin 11.3, hematocrit 35.6, platelets of 278. PT/INR PTT in normal range. Chemistry showed sodium 134, potassium 5.7, chloride 92, bicarb of 26, BUN 53, creatinine 13.72. Her creatinine yesterday was 13.89, calcium 10.5. Troponin of 0.060. Troponin yesterday was 0.053. Urinalysis was negative for wbc bacteria. Peritoneal fluid yesterday was negative for infection. Dialysis fluid culture from yesterday was negative. IMAGING STUDIES: Chest x-ray by my review showed cardiomegaly without significant infiltrate. CT scan of the brain was negative for acute process. Cervical spine CT was negative for acute fractures or disk dislocation. Echocardiogram from 2015 showed mild left ventricular systolic dysfunction with ejection fraction 40% to 45%, moderate tricuspid regurgitation. IMPRESSION: 1. Toxic metabolic encephalopathy. 2. Peritoneal dialysis catheter malfunction. 3. Elevated troponin, suspected to be secondary to type 2 myocardial infarction. CK-MB elevation is probably secondary to slightly elevated CK from the fall. 4. Hyperkalemia. 5. Hyponatremia. 6. Hypertension. 7. Diet-controlled diabetes mellitus type 2. 8. Dyslipidemia. 9. Secondary hyperparathyroidism. 10. Leukocytosis, rule out infectious etiology. 11. Anemia of chronic renal insufficiency. PLAN: The patient will be monitored on the medical floor. Echocardiogram will be obtained due to elevated troponins. Dr. Villarreal has been notified. An attempt will be made for peritoneal dialysis today. If this is unsuccessful, then she will require dialysis catheter placement. We will repeat troponin and CK-MB later today. Please note that the troponins were in the indeterminate range during recent hospitalization. We will start her on clear liquid diet with low-potassium. We will continue aspirin. We will resume carvedilol, nifedipine, and Procardia XL. Plan was discussed with the patient and the family at the bedside. They stated understanding. Job ID: [id number]
[2018-10-21] MEDS: hydrALAZINE 25 MG TAB PO SCH ×2 (14:03→20:37)
[2018-10-21] MEDS ORDERED: Loratadine 10 MG TAB PO SCH (14:45)
[2018-10-21] MEDS: Lorazepam 0.5 MG TAB PO PRN (14:56)
[2018-10-21 15:10] LABS: Anion Gap 19 mmol/L (10-20); BUN (Urea Nitrogen) 55 mg/dL (9.8-20.1); Calc. Creatinine Clearance 4 mL/min (70-130); Carbon Dioxide 26 mmol/L (23-31); Chloride 93 mmol/L (98-107); Estimated GFR-MDRD 3; Glucose 87 mg/dL (80-115); Potassium 5.4 mmol/L (3.5-5.1); Sodium 133 mmol/L (136-145)
[2018-10-21 15:26] LABS: CKMB 4.8 ng/mL (0-6.6)
[2018-10-21] MEDS: Carvedilol 6.25 MG TAB PO SCH (17:36)
[2018-10-21] MEDS: NIFEdipine XL 30 MG TAB PO SCH (20:37)
[2018-10-22] MEDS: Lorazepam 0.5 MG TAB PO PRN ×2 (01:17→22:16)
[2018-10-22 04:06] LABS: #Basophils 0.1 thou/uL (0.0-0.2); #Eosinphils 0.2 thou/uL (0.0-0.7); #Lymphocytes 1.4 thou/uL (1.20-3.40); #Monocytes 0.9 thou/uL (0.11-0.59); #Neutrophils 5.7 thou/uL (1.40-6.50); %Basophils 0.7 % (0.0-1.0); %Eosinophils 2.8 % (0.0-10.0); %Lymphocytes 16.8 % (21.0-51.0); %Monocytes 10.4 % (0.0-10.0); %Neutrophils 69.4 % (42.0-75.0); Hemoglobin 11.6 g/dL (12.0-16.0); Mean Corpuscular HGB CONC 31.5 g/dL (32.0-36.0); Mean Corpuscular Hemoglobin 26.5 pg (27.0-31.0); Mean Platelet Volume 7.3 fL (7.4-10.4); Platelet Count 277 thou/uL (130-400); Red Blood Cell (RBC) Count 4.38 mill/uL (4.20-5.40); White Blood Cell (WBC) Count 8.3 thou/uL (4.8-10.8)
[2018-10-22 04:25] LABS: Anion Gap 19 mmol/L (10-20); BUN (Urea Nitrogen) 44 mg/dL (9.8-20.1); Calc. Creatinine Clearance 4 mL/min (70-130); Calcium 9.9 mg/dL (7.8-10.44); Carbon Dioxide 26 mmol/L (23-31); Chloride 94 mmol/L (98-107); Estimated GFR-MDRD 3; Glucose 100 mg/dL (80-115); Potassium 4.3 mmol/L (3.5-5.1); Sodium 135 mmol/L (136-145)
[2018-10-22] MEDS ORDERED: Aspirin 325 mg Enteric Coated Tablet PO SCH (09:00)
[2018-10-22] MEDS: Cyanocobalamin (Vitamin B-12) 1,000 MCG TAB PO SCH (09:28)
[2018-10-22] MEDS: Carvedilol 6.25 MG TAB PO SCH ×2 (09:28→18:01)
[2018-10-22] MEDS: Aspirin 81 mg Enteric Coated Tablet PO SCH (09:28)
[2018-10-22] MEDS: NIFEdipine XL 30 MG TAB PO SCH ×2 (09:28→22:16)
[2018-10-22] MEDS: Folic Acid 1 MG TAB PO SCH (09:28)
[2018-10-22] MEDS: hydrALAZINE 25 MG TAB PO SCH ×3 (09:28→22:16)
[2018-10-22] MEDS: Loratadine 10 MG TAB PO SCH (09:29)
--- NOTE | 2018-10-22 09:50 | PRG ---
DATE OF SERVICE: 10/22/2018 SUBJECTIVE: Ms. Devi is a 68-year-old female with ESRD, was admitted due to confusion. Few hours prior to admission, the was noted to be confused and wandering in her room and accidentally disconnected her PD catheter. The concern was there was crack in the PD catheter. The PD nurses fixed the said problem and we have resumed her PD. I did speak with the family and they are wanting to convert her to hemodialysis. They feel that the patient is unable to do her peritoneal dialysis. She has been having intermittent confusion. No complaints of chest pain or shortness of breath. OBJECTIVE: VITAL SIGNS: Blood pressure 102/56, heart rate 66, respiratory rate 18, temperature 98.3, and pulse ox 96%. GENERAL: Awake, confused, not in overt distress. SKIN: Adequate turgor. HEENT: She has pinkish conjunctivae. Anicteric sclerae. No neck mass. No carotid bruits. No JVD. CHEST: No deformities. LUNGS: Clear breath sounds. HEART: Normal sinus rhythm. No murmur. No gallops. No rubs. ABDOMEN: Globular, soft, nontender. No masses. Positive for PD catheter. EXTREMITIES: No edema. No deformities. MEDICATIONS: Medications of October 22, 2018, was reviewed. LABORATORY DATA: Laboratories of October 22, 2018; white count 8.3, hemoglobin 11.6. Sodium 135, potassium 4.3, chloride 94, carbon dioxide 26, BUN 44, creatinine 13.3, glucose 100, calcium 9.9. TSH 5.2. DIAGNOSTIC DATA: October 21, CT scan of the brain shows no acute intracranial abnormality. ASSESSMENT/PLAN: 1. Confusion-consider metabolic encephalopathy. Other possibility, the patient may be simply uremic. We will continue current CCPD. 2. End-stage renal disease, stable, continuing peritoneal dialysis. The plan is eventually to convert her to hemodialysis per request by the family. Surgical consult will be done with Dr. Dillon for placement of a tunneled dialysis catheter. Please note, her previous AV fistula is nonfunctional. 3. We will recheck basic metabolic panel, CBC in a.m. Job ID: [id number]
[2018-10-22 09:57] LABS: BF Color Colorless; BF RBC Count - Manual 0 /cumm; BF WBC/Nonhematics Ct. - Manua 1 /cumm; Body Fluid Source Peritoneal Fluid; Clarity Clear (Clear); Tube # EDTA
[2018-10-22] MEDS ORDERED: CEFAZOLIN 2 GM, Admixture Fee 1 EACH in Sodium Chloride 0.9% 100 ML IVPB SCH (10:45)
--- NOTE | 2018-10-22 14:44 | CON ---
DATE OF CONSULTATION: HISTORY OF PRESENT ILLNESS: This is a 68-year-old female, who I saw on April 20, 2014, placed a hemodialysis catheter on April 22, 2014 under general anesthesia, placed a laparoscopic peritoneal dialysis catheter, omentopexy, and left arm fistula. Her cephalic vein was calibrated to 3.5 mm coronary dilator. The patient has been doing peritoneal dialysis since that time. She has not really used her left Britton fistula. She presents with encephalopathy on this occasion and brain CAT scan is unremarkable, cervical spine CAT scan is unremarkable, chest x-ray unremarkable. I have been asked by her industrial ecology technician, Dr. Villarreal, to place hemodialysis catheter. She ate [employer] breakfast sandwich 2 to 3 bites at 8 o'clock this morning. We will have to wait until this afternoon. She remains encephalopathic and it is felt that although mechanically her peritoneal dialysis catheter is working well, that she is not adequately dialyzing, I have been asked to see her regarding placement of a hemodialysis catheter. Plan at this time is to place a hemodialysis catheter and a left arm fistula this afternoon. Tentatively, we will plan left arm, but I am awaiting ultrasound vein mapping for definitive arm choice. Her family is present and issues were discussed with her with the family. ALLERGIES: NONE. SOCIAL HISTORY: Tobacco, none. Alcohol, none. HOME MEDICATIONS: 1. Hydralazine 25 t.i.d. 2. Nifedipine 60 mg daily. 3. Pepcid 20 mg a day. 4. Coreg 12.5 mg b.i.d. 5. Calcium acetate t.i.d. 6. Aspirin 81 mg a day. PAST SURGICAL HISTORY: In 2014, laparoscopic peritoneal dialysis catheter, omentopexy, left Britton fistula, bilateral cataract surgery, tubal ligation, and bladder suspension. PAST MEDICAL HISTORY: End-stage renal disease, on peritoneal dialysis; diabetes mellitus type 2; hypertension; dyslipidemia; secondary hyperparathyroidism; and history of uterine fibroid. PHYSICAL EXAMINATION: VITAL SIGNS: Weight 135 pounds, height 5 feet and 2 inches, BMI 24. Temperature 98.3, pulse 66, and blood pressure 130/71. LUNGS: Clear to auscultation. CARDIAC: Regular rate and rhythm without murmur or gallop. ABDOMEN: Soft and nontender. Peritoneal dialysis catheter in place. EXTREMITIES: Thin, palpable pulses in upper and lower extremities. Britton fistula in left wrist, thrombosed. Peritoneal dialysis catheter exit site without problems. ASSESSMENT AND PLAN: End-stage renal disease, encephalopathy, felt to be inadequate peritoneal dialysis. We will plan hemodialysis catheter placement in the left arm fistula. Vein mapping is being performed now and if the vein mapping suggests the right arm to be superior, we might consider that. Risks and benefits discussed. Questions answered. Job ID: [id number]
--- NOTE | 2018-10-22 16:40 | PDOC.HOSPP ---
- Subjective Subjective: Patient seen and examined for Encephalopathy. Still confused. No overnight events - Objective Vital Signs & Weight: Vital Signs (12 hours) Temp Pulse Resp BP BP Pulse Ox 10/22/18 11:21 98.3 F 66 16 130/71 95 10/22/18 09:28 66 151/75 H 10/22/18 08:00 96 10/22/18 07:56 98.3 F 66 18 102/56 L 96 Weight Admit Weight 135 lb Weight 135 lb I&O: 10/21/18 10/22/18 10/23/18 06:59 06:59 06:59 Intake Total 480 Balance 480 Result Diagrams: 10/22/18 03:58 10/22/18 03:58 Additional Labs: Accuchecks 10/22/18 10/21/18 10/21/18 04:31 20:09 16:59 POC Glucose 92 98 110 Laboratory Tests 10/22/18 10/22/18 10/22/18 03:57 03:58 03:58 Ammonia 22 Free T4 1.02 TSH 3rd Generation 5.2102 H Radiology Reviewed by me: Yes (CXR - No infiltrate) ROS - Review of Systems All systems: All other ROS were reviewed and found negative. Respiratory: denies: cough, dry, shortness of breath, hemoptysis, SOB with excertion, pleuritic pain, sputum, wheezing, other Cardiovascular: denies: chest pain, palpitations, orthopnea, paroxysmal noc. dyspnea, edema, light headedness, other Gastrointestinal: denies: nausea, vomitting, abdominal pain, diarrhea, constipation, melena, hematochezia, other - Medication Medications: Active Medications Generic Name Dose Route Start Last Admin Trade Name Freq PRN Reason Stop Dose Admin Aspirin 81 mg 10/22/18 09:00 10/22/18 09:28 Ecotrin PO 81 mg DAILY NIKOLAS Administration Carvedilol 12.5 mg 10/21/18 17:00 10/22/18 09:28 Coreg PO 12.5 mg BID-WM NIKOLAS Administration Cyanocobalamin 1,000 mcg 10/22/18 09:00 10/22/18 09:28 Vitamin B-12 PO 1,000 mcg DAILY NIKOLAS Administration Folic Acid 1 mg 10/22/18 09:00 10/22/18 09:28 Folvite PO 1 mg DAILY NIKOLAS Administration Hydralazine HCl 25 mg 10/21/18 15:00 10/22/18 16:38 Apresoline PO Not Given TID NIKOLAS Loratadine 10 mg 10/22/18 09:00 10/22/18 09:29 Claritin PO 10 mg DAILY NIKOLAS Administration Lorazepam 0.5 mg 10/21/18 14:32 10/22/18 01:17 Ativan PO 0.5 mg Q8H PRN Administration Anxiety Nifedipine 30 mg 10/21/18 21:00 10/22/18 09:28 Procardia Xl PO 30 mg BID NIKOLAS Administration - Exam NAD Neck: supple, no JVD Heart: RRR, no gallops Respiratory: CTAB, no rales Gastrointestinal: soft, non-tender, non-distended, normal bowel sounds Extremities: no edema Neurological: no focal deficits, no new deficit Hosp A/P - Plan IMPRESSION: 1. Toxic metabolic encephalopathy - probably uremic encephalopathy 2. Peritoneal dialysis catheter malfunction - catheter working now. 3. Elevated troponin, suspected to be secondary to type 2 myocardial infarction. 4. Hyperkalemia. improved. 5. Hyponatremia. 6. Hypertension. 7. Diet-controlled diabetes mellitus type 2. 8. Dyslipidemia. 9. Secondary hyperparathyroidism. 10. Leukocytosis - Peritoneal fluid testing negative 11. Anemia of chronic renal insufficiency. PLAN: Remains confused. I d/w Dr Villarreal. Patient needs hemodialysis per Dr Villarreal. Gen surgery consult for hemodialysis catheter placement Await Echo BMP in AM Cont carvedilol, nifedipine, and Procardia XL. Cont Neurochecks Peritoneal fluid negative.
--- NOTE | 2018-10-22 16:48 | ULT ---
BILATERAL UPPER EXTREMITY VENOUS ULTRASOUND FOR VEIN MAPPIN10/22/18 HISTORY: End-stage renal disease. COMPARISON: None. TECHNIQUE: Chavira scale, color flow, Doppler imaging with spectral waveform analysis performed of the left and rig ht upper extremity arterial system. FINDINGS: RIGHT UPPER EXTREMITY BRACHIAL ARTERY: 4.6 mm RADIAL ARTERY: 1.8 mm ULNAR ARTERY: 2.2 mm CEPHALIC VEIN Proximal Humerus: 3.3 mm Mid Humerus: 1.0 mm Distal Humerus: 1.0 mm Antecubital Fossa: 1.9 mm Proximal Forearm: 1.8 mm Mid Forearm: 2.0 mm Distal Forearm: 1.8 mm BASILIC VEIN Proximal Humerus: 4.3 mm Mid Humerus: 4.1 mm Distal Humerus: 4.4 mm Antecubital Fossa: 4.1 mm Proximal Forearm: 2.2 mm Mid Forearm: 1.7 mm Distal Forearm: 1.2 mm LEFT UPPER EXTREMITY BRACHIAL ARTERY: 4.7 mm RADIAL ARTERY: 2.9 mm ULNAR ARTERY: 1.6 mm CEPHALIC VEIN Proximal Humerus: 4.2 mm Mid Humerus: 4.6 mm Distal Humerus: 4.9 mm Antecubital Fossa: 5.1 mm Proximal Forearm: 4.3 mm Mid Forearm: 3.2 mm Distal Forearm: 2.8 mm BASILIC VEIN Proximal Humerus: 5.8 mm Mid Humerus: 6.3 mm Distal Humerus: 5.3 mm Antecubital Fossa: 3.3 mm Proximal Forearm: 3.6 mm Mid Forearm: 3.5 mm Distal Forearm: 2.3 mm IMPRESSION: Vein mapping as above. POS: OFF
[2018-10-23 06:17] LABS: #Eosinphils 0.2 thou/uL (0.0-0.7); #Lymphocytes 1.2 thou/uL (1.20-3.40); #Monocytes 0.9 thou/uL (0.11-0.59); #Neutrophils 5.3 thou/uL (1.40-6.50); %Basophils 0.5 % (0.0-1.0); %Eosinophils 2.6 % (0.0-10.0); %Lymphocytes 15.3 % (21.0-51.0); %Monocytes 12.2 % (0.0-10.0); %Neutrophils 69.3 % (42.0-75.0); Hemoglobin 11.6 g/dL (12.0-16.0); Mean Corpuscular HGB CONC 30.6 g/dL (32.0-36.0); Mean Corpuscular Hemoglobin 25.4 pg (27.0-31.0); Mean Platelet Volume 7.7 fL (7.4-10.4); Platelet Count 289 thou/uL (130-400); RBC Distribution Width 17.9 % (11.5-14.5); Red Blood Cell (RBC) Count 4.57 mill/uL (4.20-5.40); White Blood Cell (WBC) Count 7.7 thou/uL (4.8-10.8)
[2018-10-23 06:26] LABS: Anion Gap 20 mmol/L (10-20); BUN (Urea Nitrogen) 41 mg/dL (9.8-20.1); Calc. Creatinine Clearance 4 mL/min (70-130); Calcium 9.8 mg/dL (7.8-10.44); Carbon Dioxide 27 mmol/L (23-31); Chloride 96 mmol/L (98-107); Estimated GFR-MDRD 3; Glucose 100 mg/dL (80-115); Potassium 4.3 mmol/L (3.5-5.1); Sodium 139 mmol/L (136-145)
[2018-10-23] MEDS: Carvedilol 6.25 MG TAB PO SCH ×2 (06:34→18:20)
[2018-10-23] MEDS: Aspirin 81 mg Enteric Coated Tablet PO SCH (08:41)
[2018-10-23] MEDS: Loratadine 10 MG TAB PO SCH (08:42)
[2018-10-23] MEDS: Cyanocobalamin (Vitamin B-12) 1,000 MCG TAB PO SCH (08:42)
[2018-10-23] MEDS: Folic Acid 1 MG TAB PO SCH (08:42)
[2018-10-23] MEDS: hydrALAZINE 25 MG TAB PO SCH ×3 (08:54→21:25)
[2018-10-23] MEDS: NIFEdipine XL 30 MG TAB PO SCH ×2 (08:54→21:24)
--- NOTE | 2018-10-23 09:49 | PRG ---
DATE OF SERVICE: 10/23/2018 SUBJECTIVE: Ms. Devi is a 68-year-old female with ESRD and followed up by the Renal Service for her maintenance peritoneal dialysis. She underwent a peritoneal dialysis yesterday with no acute problems. Please note, the family has decided to convert to hemodialysis. For this reason, this morning, Dr. Dillon will be placing a cuffed hemodialysis catheter and possible AV fistula. No other complaints. No chest pain or shortness of breath. OBJECTIVE: VITAL SIGNS: Blood pressure is 181/72, heart rate 66, respiratory rate 14, temperature 98.2, pulse ox 94% on room air. GENERAL: Awake, occasionally confused, but not in distress. SKIN: Adequate turgor. HEENT: She has pinkish conjunctivae. Anicteric sclerae. NECK: No neck mass. No carotid bruits. No JVD. CHEST: No deformities. LUNGS: Clear breath sounds. HEART: Normal sinus rhythm. No murmur. No gallops. No rubs. ABDOMEN: Globular, soft, and nontender. No masses. EXTREMITIES: No edema. No deformities. She does have a PD catheter. MEDICATIONS: Medications of October 23, 2018, were reviewed. LABORATORY DATA: Laboratories of October 23, 2018: Sodium 139, potassium 4.3, chloride 96, carbon dioxide 27, BUN 41, creatinine 14. White count 7.7, hemoglobin 11.6. ASSESSMENT AND PLAN: 1. Confusion - this could be from uremia. The patient has not been compliant with her PD regimen. We will be converting her to hemodialysis. 2. End-stage renal disease - the patient to have a cuffed dialysis catheter placed. We will initiate dialysis tomorrow. Fluid removal will be done only as tolerated by the patient. 3. Continue supportive care. Job ID: [id number]
[2018-10-23] MEDS ORDERED: PROPOFOL 200 MG/20 ML VIAL ONE (10:34)
[2018-10-23] MEDS ORDERED: Ondansetron PF 4 MG/2 ML Vial ONE (10:34)
[2018-10-23] MEDS ORDERED: Heparin 10,000 UNITS/ 10 ML VIAL ONE (10:34)
[2018-10-23] MEDS ORDERED: ePHEDrine 50 MG/ML VIAL ONE (10:34)
[2018-10-23] MEDS ORDERED: Lidocaine 1% PF 5 ML VIAL ONE (10:34)
[2018-10-23] MEDS ORDERED: Heparin 10,000 UNITS/1 ML VIAL ONE (15:22)
[2018-10-23] MEDS ORDERED: Bupivacaine HCl 0.5%/Epinephrine 1:200,000/PF 30 ml Vial ONE (15:22)
[2018-10-23] MEDS ORDERED: Heparin 5,000 UNITS/ML VIAL ONE (15:22)
[2018-10-23] MEDS ORDERED: Protamine Sulfate 50 MG/5 ML VIAL ONE ×2 (15:22→16:52)
[2018-10-23] MEDS ORDERED: Sodium Chloride 0.9% 10 ML ONE (15:23)
[2018-10-23] MEDS ORDERED: Lidocaine 2% PF 5 ML VIAL ONE (15:23)
[2018-10-23] MEDS ORDERED: Fentanyl 100 MCG/2 ML VIAL ONE (15:31)
[2018-10-23] MEDS ORDERED: ceFAZolin Sodium (SDC) 2 GM/100 ML BAG ONE (15:38)
[2018-10-23] MEDS ORDERED: Ondansetron HCl/PF 4 MG/2 ML Vial IVP PRN (17:31)
[2018-10-23] MEDS ORDERED: Promethazine HCl 25 MG/ML VIAL SLOW IVP PRN (17:31)
[2018-10-23] MEDS ORDERED: Promethazine HCl 25 MG/ML VIAL IM PRN (17:31)
--- NOTE | 2018-10-23 17:57 | RAD ---
Exam: Chest one view COMPARISON: 10/21/2018 History: HemoSplit dialysis catheter placement FINDINGS: Interval placement of a right-sided HemoSplit dialysis catheter with the distal tip in the SVC/right atrial junction. There is cardiomegaly and atherosclerosis aorta. Pulmonary vessels are normal. Costophrenic angles are clear. No masses or consolidation. No pneumothorax or osseous abnormalities IMPRESSION: Right-sided HemoSplit osseous catheter placement as above. No pneumothorax.
[2018-10-23] MEDS: traMADol HCl 50 MG TAB PO PRN (18:25)
[2018-10-23] MEDS ORDERED: Lorazepam 0.5 MG TAB PO PRN (18:52)
--- NOTE | 2018-10-23 20:06 | OP ---
DATE OF PROCEDURE: 10/23/2018 POSTOPERATIVE DIAGNOSES: End-stage renal disease; encephalopathy; inadequate peritoneal dialysis, so mechanically functioning well. POSTOPERATIVE DIAGNOSES: End-stage renal disease; encephalopathy; inadequate peritoneal dialysis, so mechanically functioning well. PROCEDURES PERFORMED: Right internal jugular cuffed tunneled hemodialysis catheter, left arm primary fistula, antecubital vein to proximal radial artery outflow primary cephalic vein in the upper arm by anatomic considerations, although communication with basilic vein preserved, perforating branch ligated as it preferentially fed the basilic vein. Removal of peritoneal dialysis catheter. ANESTHESIA: General with local 0.5% Marcaine with epinephrine 30 mL mixed with 2% Xylocaine 10 mL. DESCRIPTION OF PROCEDURE: The patient was taken to the operating room, where under general anesthesia, abdomen was prepared with ChloraPrep and draped in routine fashion. Local anesthetic was infiltrated in the skin and subcutaneous tissue about the operative site. Using ultrasound guidance, the right internal jugular vein was cannulated with a trocar catheter, J-wire threaded, trocar catheter removed. Skin site was enlarged sharply. Stab incision was made over the right chest. Tunneling device was used to tunnel the pre-curved [employer] cuffed-tunneled hemodialysis catheter between the 2 incisions, placed the fabric cuff beneath the skin exit site, catheter secured with 2 sutures of 3-0 nylon, and CHD dressing and sterile dressings applied. Small and medium size dilators were placed over the J-wire into the internal jugular vein and removed. Dilator and Peel-Away sheath were placed over the J-wire into the superior vena cava, and dilator and J-wire were removed. Catheter was placed with the Peel-Away sheath and Peel-Away sheath was removed. Platysma was approximated with 4-0 Monocryl, skin with subdermal 4-0 Monocryl and [place] glue, and sterile dressings applied. Each port aspirated blood, flushed with saline solution, and heparinized saline solution 1000 units of heparin per mL indicating the volume of the port. Final fluoroscopic images revealed good line placement. The patient was then turned to the left forearm, where just below the antecubital fossa, incision was made longitudinally, carried down through skin and subcutaneous tissue. Antecubital vein was dissected free. It was of good caliber. Perforating branch seemed to feed primarily the basilic vein as it was dissected free to access the proximal radial artery. Once this was appreciated, the perforating branch was ligated with a 4-0 silk tie. The antecubital vein was of excellent caliber and it was doubly clipped on the hand side, opened and spatulated and interrogated, passing coronary dilators from 2 mm to 4 mm coronary dilators out to the cephalic vein outflow. The patient was given 5000 units of heparin intravenously. After adequate circulation time, the proximal artery was clamped proximally and distally. Longitudinal arteriotomy was made sharply for a 2 cm anastomosis, spatulating the cephalic vein appropriately. An end vein to side proximal radial artery anastomosis was created with continuous suture of 6-0 Prolene. Proximal radial artery was of good caliber and without arteriosclerotic disease. Vascular clamps released and there was good flow in the cephalic vein outflow interrogated by Doppler. Hemostasis was noted. Subcutaneous tissue was approximated with 3-0 Monocryl, skin with subdermal 4-0 Monocryl, and [place] glue applied. The patient was given 50 mg of protamine intravenously by Anesthesia. Attention was then turned to the PD catheter, which was dissected free, removing the catheter and both cuffs internally, leaving the wound open and placing the packing. The patient tolerated the procedure well. Job ID: [id number]
--- NOTE | 2018-10-23 20:41 | PDOC.HOSPP ---
- Subjective Subjective: Patient seen and examined for Encephalopathy. Remains confused. HD catheter placed. No overnight events - Objective Vital Signs & Weight: Vital Signs (12 hours) Temp Pulse Resp BP BP Pulse Ox 10/23/18 19:15 66 160/58 H 100 10/23/18 19:00 80 99/68 100 10/23/18 18:25 79 110/71 100 10/23/18 18:20 107/61 10/23/18 18:00 98.5 F 79 20 107/61 100 10/23/18 12:00 98.3 F 67 16 144/79 H 96 10/23/18 08:54 68 181/72 H Weight Admit Weight 135 lb Weight 135 lb I&O: 10/22/18 10/23/18 10/24/18 06:59 06:59 06:59 Intake Total 480 200 60 Balance 480 200 60 Result Diagrams: 10/24/18 04:40 10/24/18 04:40 Additional Labs: Accuchecks 10/23/18 14:30 POC Glucose 81 Radiology Reviewed by me: No (Echo - normal EF) ROS - Review of Systems ROS unobtainable: due to mental status - Medication Medications: Active Medications Generic Name Dose Route Start Last Admin Trade Name Freq PRN Reason Stop Dose Admin Aspirin 81 mg 10/22/18 09:00 10/23/18 08:41 Ecotrin PO Not Given DAILY [facility] Carvedilol 12.5 mg 10/21/18 17:00 10/23/18 18:20 Coreg PO Not Given BID-[facility] Cyanocobalamin 1,000 mcg 10/22/18 09:00 10/23/18 08:42 Vitamin B-12 PO Not Given DAILY [facility] Folic Acid 1 mg 10/22/18 09:00 10/23/18 08:42 Folvite PO Not Given DAILY [facility] Hydralazine HCl 25 mg 10/21/18 15:00 10/23/18 14:43 Apresoline PO Not Given TID [facility] Loratadine 10 mg 10/22/18 09:00 10/23/18 08:42 Claritin PO Not Given DAILY [facility] Nifedipine 30 mg 10/21/18 21:00 10/23/18 08:54 Procardia Xl PO 30 mg BID NIKOLAS Administration Tramadol HCl 50 mg 10/23/18 17:26 08/02/19 18:25 Ultram PO 50 mg Q4H PRN Administration Pain 1-5 - Exam NAD Heart: RRR, no rubs Respiratory: CTAB, no ronchi Gastrointestinal: soft, non-distended, normal bowel sounds Extremities: no edema Psychiatric: not oriented Hosp A/P - Plan plan discussed w/ family IMPRESSION: 1. Toxic metabolic encephalopathy - probably uremic encephalopathy 2. Peritoneal dialysis catheter malfunction. 3. Elevated troponin, suspected to be secondary to type 2 myocardial infarction. 4. Hyperkalemia. improved. 5. Hyponatremia. 6. Hypertension. 7. Diet-controlled diabetes mellitus type 2. 8. Dyslipidemia. 9. Secondary hyperparathyroidism. 10. Leukocytosis - Peritoneal fluid testing negative 11. Anemia of chronic renal insufficiency. PLAN: Hemodialysis in AM Cont Neurochecks Cont current meds as above including carvedilol, nifedipine, and Procardia XL.
[2018-10-24] MEDS: Acetaminophen 325 MG Suppository PR PRN ×4 (05:35→21:18)
[2018-10-24 05:44] LABS: #Eosinphils 0.1 thou/uL (0.0-0.7); #Monocytes 0.7 thou/uL (0.11-0.59); #Neutrophils 9.9 thou/uL (1.40-6.50); %Basophils 0.3 % (0.0-1.0); %Eosinophils 0.9 % (0.0-10.0); %Lymphocytes 8.6 % (21.0-51.0); %Monocytes 5.6 % (0.0-10.0); %Neutrophils 84.7 % (42.0-75.0); Hemoglobin 10.8 g/dL (12.0-16.0); Mean Corpuscular HGB CONC 31.2 g/dL (32.0-36.0); Mean Corpuscular Hemoglobin 26.1 pg (27.0-31.0); Mean Corpuscular Volume 83.4 fL (78.0-98.0); Mean Platelet Volume 7.7 fL (7.4-10.4); Platelet Count 272 thou/uL (130-400); RBC Distribution Width 17.6 % (11.5-14.5); Red Blood Cell (RBC) Count 4.15 mill/uL (4.20-5.40); White Blood Cell (WBC) Count 11.7 thou/uL (4.8-10.8)
[2018-10-24 06:18] LABS: ALT (SGPT) 10 U/L (8-55); AST (SGOT) 21 U/L (5-34); Albumin 3.1 g/dL (3.4-4.8); Alkaline Phosphatase 59 U/L (40-150); Anion Gap 24 mmol/L (10-20); BUN (Urea Nitrogen) 52 mg/dL (9.8-20.1); Bilirubin, Total 0.7 mg/dL (0.2-1.2); Calc. Creatinine Clearance 3 mL/min (70-130); Calcium 8.8 mg/dL (7.8-10.44); Carbon Dioxide 23 mmol/L (23-31); Chloride 97 mmol/L (98-107); Estimated GFR-MDRD 2; Globulin 3.2 g/dL (2.4-3.5); Glucose 75 mg/dL (80-115); Potassium 5.4 mmol/L (3.5-5.1); Protein, Total 6.3 g/dL (6.0-8.3); Sodium 139 mmol/L (136-145)
[2018-10-24] MEDS ORDERED: Vancomycin HCl 1 GM in Premix Bag 1 BAG IVPB SCH ×2 (08:30→08:45)
[2018-10-24] MEDS ORDERED: Vancomycin HCl 250 MG in Sodium Chloride 0.9% 100 ML IVPB SCH (08:45)
[2018-10-24] MEDS ORDERED: Vancomycin HCl 500 MG in Sodium Chloride 0.9% 100 ML IVPB SCH (08:45)
[2018-10-24] MEDS ORDERED: Vancomycin HCl 750 MG in Sodium Chloride 0.9% 250 ML 250 ML IVPB SCH (08:45)
[2018-10-24] MEDS ORDERED: HOLD VANCOMYCIN FOR LEVEL >20 FS SCH (08:45)
[2018-10-24] MEDS ORDERED: Vancomycin Sliding Scale 1 EACH FS ONE (08:45)
[2018-10-24] MEDS ORDERED: Vancomycin HCl 1.5 GM in Sodium Chloride 0.9% 250 ML 300 ML IVPB SCH (09:00)
[2018-10-24] MEDS ORDERED: Cefepime 1 GM in Sodium Chloride 0.9% 100 ML IVPB SCH (09:00)
--- NOTE | 2018-10-24 09:54 | RAD ---
Exam: Chest one view HISTORY:Fever. Eval for pneumonia. Comparison: 10/23/2018 FINDINGS: Lines and tubes: Stable right-sided HemoSplit dialysis catheter. Cardiac silhouette:Cardiomegaly. Atherosclerosis of the aortic knob. Pulmonary vessels: Mild pulmonary vascular prominence. Costophrenic angles: Clear LUNGS: Patchy interstitial reticulonodular opacities which may be due to edema or infiltrate. No cons olidation with air bronchograms. Pneumothorax: None Osseous abnormalities: None IMPRESSION: Patchy reticulonodular opacities which may be due to edema or infiltrate. Continued surve illance maintained.
[2018-10-24] MEDS: Cyanocobalamin (Vitamin B-12) 1,000 MCG TAB PO SCH (10:30)
[2018-10-24] MEDS: Carvedilol 6.25 MG TAB PO SCH ×2 (10:30→17:49)
[2018-10-24] MEDS: Folic Acid 1 MG TAB PO SCH (10:30)
[2018-10-24] MEDS: hydrALAZINE 25 MG TAB PO SCH ×3 (10:30→20:35)
[2018-10-24] MEDS: NIFEdipine XL 30 MG TAB PO SCH ×2 (10:30→20:35)
[2018-10-24] MEDS: Loratadine 10 MG TAB PO SCH (10:30)
--- NOTE | 2018-10-24 10:33 | PRG ---
DATE OF SERVICE: 10/24/2018 SERVICE: Renal Medicine. SUBJECTIVE: Ms. Devi is a 68-year-old female, who was initially admitted for confusion and severe agitation. In addition, she was unable to do her peritoneal dialysis, and for that reason, she was converted to hemodialysis. A tunneled dialysis catheter was placed by Dr. Dillon. In addition, the PD catheter has been pulled out. Early this morning, she was noted to be febrile. Empiric antibiotics have been started with the patient. Her mentation is also noted to be much decreased this morning. Her sedatives have now been discontinued. The patient is no longer on Ativan. Case discussed at length with the patient's son and daughter. OBJECTIVE: VITAL SIGNS: Blood pressure is 168/61, temperature is 102.5, heart rate 79, respiratory rate 22, and pulse ox 98%. GENERAL: The patient has decreased mentation, is not following commands. SKIN: Adequate turgor. HEENT: She has pinkish conjunctivae and anicteric sclerae. NECK: No neck mass. No carotid bruits. No JVD. CHEST: No deformities. LUNGS: Decreased breath sounds. HEART: Normal sinus rhythm. No murmurs. No gallops. No rubs. ABDOMEN: Globular, soft, and nontender. No masses. EXTREMITIES: No edema. No deformities. MEDICATIONS: Medications of October 24, 2018, were reviewed. LABORATORY DATA: Laboratories of October 24, 2018: White count 11.7, hemoglobin 10.8. Sodium 139, potassium 5.4, chloride 97, carbon dioxide 23, BUN 52, creatinine 16.27, and glucose 75. LFTs normal. Albumin is 3.1. Chest x-ray of October 24, 2018, showed patchy reticulonodular opacities. ASSESSMENT AND PLAN: 1. Fever - chest x-ray shows ? of congestive heart failure versus infiltrates. Empiric antibiotic has been started with this patient. ID consult has been done. 2. Decreased mentation - this could be from uremia due to her noncompliance with peritoneal dialysis. We will be doing daily hemodialysis with this patient. In addition, this could also be from her medications and her sedatives. They have been also discontinued. 3. End-stage renal disease, daily hemodialysis. Fluid removal as tolerated by the patient. I have scheduled her for 3-hour dialysis today and tomorrow. 4. Overall, prognosis remains guarded. Job ID: [id number]
[2018-10-24] MEDS: Triple Antibiotic Oint 1 GM Packet TOP SCH (13:29)
[2018-10-24] MEDS: hydrALAZINE 20 MG/ML VIAL SLOW IVP PRN ×2 (17:38→21:41)
[2018-10-24] MEDS: Piperacillin/Tazobactam 2.25 GM in Sodium Chloride 0.9% 100 ML IVPB SCH (17:40)
[2018-10-24] MEDS: Dextrose 5% in Water 500 ML IV SCH (17:42)
--- NOTE | 2018-10-24 21:26 | CON ---
DATE OF CONSULTATION: 10/24/2018 REASON FOR CONSULTATION: Concern with possible encephalitis or meningitis. HISTORY OF PRESENT ILLNESS: A 68-year-old patient who has a longstanding history of type 2 diabetes with end-stage renal disease. She also has some element of cardiomyopathy with combined systolic and diastolic CHF. She has been managing her renal replacement with peritoneal dialysis for the past 4 years, had one prior admission because of volume overload after having missed peritoneal dialysis sessions. In August 2018, she was brought to the emergency room because of abdominal pain associated with anorexia. On arrival, she was hypertensive. CT of the abdomen showed some ascites. Finally in October 20, she came in because of change in mental status with improved pruritus, nausea, vomiting, and anorexia. It looks like she was not getting proper dialytic therapy and discussions were carried out regarding switching to hemodialysis. The family was supposed to discuss it further. The patient had improved her mental status and she was discharged. Now, she was admitted pretty much the very next day after being discharged with recurrence of altered mental status. The patient became obtunded and unable to follow commands, and she was admitted to the [facility]. Dr. Dillon placed a tunneled hemodialysis catheter in the right IJ position and the peritoneal dialysis catheter was removed. There had been no reports of headaches. No seizure activity or respiratory symptoms. No abdominal pain anymore. She does not have much in terms of urinary output. PAST MEDICAL HISTORY: ESRD, type 2 diabetes, previous peritoneal dialysis for many years, no obvious complications, secondary hyperparathyroidism, uterine fibroid, dyslipidemia. PAST SURGICAL HISTORY: PD catheter placement, fistula placement, tubal ligation, and bladder suspension. ALLERGIES: NONE. SOCIAL HISTORY: Lives in the area. Never smoker. FAMILY HISTORY: Hypertension, type 2 diabetes. CURRENT MEDICATIONS: 1. Tylenol. 2. DuoNeb. 3. Ecotrin. 4. Tums. 5. Coreg. 6. Cefazolin. 7. Zosyn. 8. Vancomycin. PHYSICAL EXAMINATION: VITAL SIGNS: Temperature up to 102.9 since admission, pulse 82, respirations 24, O2 saturation 99 after having dropped to 86. SKIN: The patient has a tunneled catheter in the right IJ position and the peritoneal dialysis catheter has been removed. The patient was awake, but she was confused and did not establish eye contact, did not follow commands. Could not give us any history. No lymphadenopathy. HEENT: Ocular movements conjugate. Sclerae white. Pupils are equal. Oral cavity with dentures. No oral lesions. NECK: Supple. No jugular vein distention. LUNGS: Symmetric. Clear breath sounds. HEART: S1 and S2, regular rate. No S3 or S4. ABDOMEN: Soft, not distended or tender. No ascites. No bladder distention. No joint inflammatory activity. Diminished pulses. I could not feel any popliteal or dorsalis pedis pulses. Plantar responses are indifferent. EXTREMITIES: She is able to move extremities. No focal weakness. She could not answer questions. Did not have the ability to give us any report. LABORATORY DATA: White cell count was 12.2 and now is 11.7, hemoglobin 11.3 and 10.8, MCV 81, platelets 278 and 272, neutrophil percentage was 79 and now is 84. INR 1.1. Sodium 139, creatinine was 14.04 and now 16.27, glucose 81. Liver profile normal. Albumin 3.1. Ammonia was normal at 22. Lipase 45. TSH 5.2 and free T4 of 1.02. Urinalysis with 0-3 wbc's. The patient had peritoneal dialysis sample submitted, which showed normal findings. There is a chest x-ray with patchy reticulonodular opacities either secondary to edema or infiltrate. No bronchograms. There is a brain CT from October [address] evidence of acute intracranial process. Echocardiogram with EF 50% to 55%, LVH. Valves were fairly normal. Two sets of blood cultures are pending from today. ASSESSMENT: 1. Type 2 diabetes. 2. End-stage renal disease, on peritoneal dialysis for the past 4 years. 3. Inadequate peritoneal dialysis with encephalopathy as the more likely reason for her altered mental status. 4. Fever, which developed after admission to the hospital. 5. Abnormal lung exam. DISCUSSION: The differential diagnosis includes encephalopathy due to inadequate dialytic therapy as the more likely scenario. The primary IT GENERALIST infectious process is less likely, although not completely ruled out. If she does not improve with the dialytic therapy, then she would need further evaluation even including the possibility of cerebrospinal fluid evaluation after spinal tap under fluoroscopy. The other possibilities would be also associated bacteremia and pneumonia acquired either in the hospital or in the community setting. The patient is currently on vancomycin and Zosyn, which will be continued at least until the culture results are back and the fever resolves. Thromboembolism and gastrointestinal/intra-abdominal inflammatory process appears to be less likely. Urinary process also unlikely. Inflammatory process in the spine, bone, and joints also not apparent at this time. Job ID: [id number]
--- NOTE | 2018-10-24 22:40 | PDOC.HOSPP ---
- Subjective Subjective: Patient seen and examined for Encephalopathy. Remains confused. s/p hemodialysis catheter placement yesterday. Overnight events noted. - Objective Vital Signs & Weight: Vital Signs (12 hours) Temp Pulse BP Pulse Ox 10/24/18 20:10 101.2 F H 10/24/18 17:49 190/99 H 10/24/18 17:43 82 10/24/18 17:38 96 190/99 H 10/24/18 17:16 98.9 F 10/24/18 15:09 100.1 F H 10/24/18 13:36 101.6 F H 10/24/18 11:51 99 10/24/18 11:34 102.5 F H Weight Admit Weight 135 lb Weight 135 lb Most Recent Monitor Data Heart Rate from ECG 90 NIBP 184/71 NIBP BP-Mean 108 Respiration from ECG 19 SpO2 100 I&O: 10/23/18 10/24/18 10/25/18 06:59 06:59 06:59 Intake Total 200 100 71.5 Output Total 1100 Balance 200 100 -1028.5 Result Diagrams: 10/25/18 04:37 10/25/18 04:37 Additional Labs: Accuchecks 10/24/18 10/24/18 10/24/18 16:48 11:50 04:26 POC Glucose 85 96 85 Radiology Reviewed by me: Yes (CXR - ?Pneumonia) ROS - Review of Systems ROS unobtainable: due to mental status - Medication Medications: Active Medications Generic Name Dose Route Start Last Admin Trade Name Freq PRN Reason Stop Dose Admin Acetaminophen 325 mg 10/24/18 05:14 10/24/18 21:18 Tylenol HI 325 mg Q4H PRN Administration Headache/Fever or Pain Aspirin 81 mg 10/22/18 09:00 10/23/18 08:41 Ecotrin PO Not Given DAILY [facility] Carvedilol 12.5 mg 10/21/18 17:00 10/24/18 17:49 Coreg PO Not Given BID-[facility] Cyanocobalamin 1,000 mcg 10/22/18 09:00 10/24/18 10:30 Vitamin B-12 PO Not Given DAILY [facility] Folic Acid 1 mg 10/22/18 09:00 10/24/18 10:30 Folvite PO Not Given DAILY [facility] Hydralazine HCl 10 mg 10/21/18 11:51 10/24/18 21:41 Apresoline SLOW IVP 10 mg Q4H PRN Administration SBP Greater Than 180 Hydralazine HCl 25 mg 10/21/18 15:00 10/24/18 20:35 Apresoline PO Not Given TID NIKOLAS Dextrose/Water 500 mls @ 50 mls/hr 10/24/18 14:45 10/24/18 17:42 D5w IV 500 mls .Q10H NIKOLAS Administration Piperacillin Sod/Tazobactam 100 mls @ 200 mls/hr 10/24/18 15:00 10/24/18 17: 40 Sod 2.25 gm/ Sodium Chloride IVPB 100 mls 0300,1500 NIKOLAS Administration Loratadine 10 mg 10/22/18 09:00 10/24/18 10:30 Claritin PO Not Given DAILY [facility] Neomycin/Polymyxin/Bacitracin 1 gm 10/24/18 09:00 10/24/18 13:29 Triple Antibiotic TOP 1 gm DAILY NIKOLAS Administration Nifedipine 30 mg 10/21/18 21:00 10/24/18 20:35 Procardia Xl PO Not Given BID NIKOLAS Tramadol HCl 50 mg 10/23/18 17:26 10/23/18 18:25 Ultram PO 50 mg Q4H PRN Administration Pain 1-5 - Exam Neck: supple, no JVD Heart: RRR, no rubs Respiratory: no wheezes, rales (at bases) Gastrointestinal: soft, normal bowel sounds Psychiatric: not oriented, somnolent Hosp A/P - Plan IMPRESSION: 1. Toxic metabolic encephalopathy - probably uremic encephalopathy. 2. Peritoneal dialysis catheter malfunction. - Catheter dced. Started on HD 3. Pneumonia ? Aspiration 4. Hyperkalemia/Hyponatremia. 5. Elevated troponin, suspected to be secondary to type 2 myocardial infarction. 6. Hypertension. 7. Diet-controlled diabetes mellitus type 2. 8. Dyslipidemia. 9. Secondary hyperparathyroidism. 10. Leukocytosis - Peritoneal fluid testing negative 11. Anemia of chronic renal insufficiency. PLAN: Transfer to IMCU for close monitoring Start IV Vancomycin/Zosyn empirically CXR reviewed Await blood cultures Change ASA to HI if unable to take PO IVF with dextrose until able to take PO Hemodialysis today Cont Neurochecks Cont current meds as above.
[2018-10-25] MEDS: hydrALAZINE 20 MG/ML VIAL SLOW IVP PRN ×2 (02:49→06:20)
[2018-10-25] MEDS: Piperacillin/Tazobactam 2.25 GM in Sodium Chloride 0.9% 100 ML IVPB SCH ×2 (02:51→20:12)
[2018-10-25] MEDS: Dextrose 5% in Water 500 ML IV SCH ×3 (04:14→20:12)
[2018-10-25 05:03] LABS: #Eosinphils 0.1 thou/uL (0.0-0.7); #Lymphocytes 1.4 thou/uL (1.20-3.40); #Monocytes 1.2 thou/uL (0.11-0.59); #Neutrophils 8.4 thou/uL (1.40-6.50); %Basophils 0.2 % (0.0-1.0); %Eosinophils 0.5 % (0.0-10.0); %Lymphocytes 12.8 % (21.0-51.0); %Monocytes 10.9 % (0.0-10.0); %Neutrophils 75.6 % (42.0-75.0); Hemoglobin 11.4 g/dL (12.0-16.0); Mean Corpuscular HGB CONC 30.8 g/dL (32.0-36.0); Mean Corpuscular Hemoglobin 26.2 pg (27.0-31.0); Mean Corpuscular Volume 85.1 fL (78.0-98.0); Mean Platelet Volume 7.4 fL (7.4-10.4); Platelet Count 271 thou/uL (130-400); RBC Distribution Width 17.3 % (11.5-14.5); Red Blood Cell (RBC) Count 4.35 mill/uL (4.20-5.40); White Blood Cell (WBC) Count 11.1 thou/uL (4.8-10.8)
[2018-10-25 05:20] LABS: Anion Gap 19 mmol/L (10-20); BUN (Urea Nitrogen) 24 mg/dL (9.8-20.1); Calc. Creatinine Clearance 6 mL/min (70-130); Calcium 8.5 mg/dL (7.8-10.44); Carbon Dioxide 23 mmol/L (23-31); Chloride 97 mmol/L (98-107); Estimated GFR-MDRD 5; Glucose 103 mg/dL (80-115); Potassium 4.1 mmol/L (3.5-5.1); Sodium 135 mmol/L (136-145)
[2018-10-25 08:48] LABS: Vancomycin, Trough 32.1 ug/mL
[2018-10-25] MEDS ORDERED: Heparin 10,000 UNITS/ 10 ML VIAL ONE (09:00)
[2018-10-25] MEDS ORDERED: Nitroglycerin 2% Ointment 1 INCH/1 GM Packet TOP PRN (09:19)
[2018-10-25] MEDS ORDERED: cloNIDine 0.1mg/24 Hour PATCH TD SCH (09:30)
[2018-10-25] MEDS ORDERED: Labetalol HCl 100 MG/20 ML VIAL SLOW IVP SCH (09:30)
[2018-10-25] MEDS: Folic Acid 1 MG TAB PO SCH (10:09)
[2018-10-25] MEDS: Carvedilol 6.25 MG TAB PO SCH ×2 (10:09→16:44)
[2018-10-25] MEDS: Aspirin 81 mg Enteric Coated Tablet PO SCH (10:09)
[2018-10-25] MEDS: Aspirin 300 MG Suppository PR SCH (10:09)
[2018-10-25] MEDS: Cyanocobalamin (Vitamin B-12) 1,000 MCG TAB PO SCH (10:09)
[2018-10-25] MEDS: Heparin 5,000 UNITS/ML VIAL SC SCH ×2 (10:10→20:16)
[2018-10-25] MEDS: hydrALAZINE 25 MG TAB PO SCH ×3 (10:10→20:16)
[2018-10-25] MEDS: Triple Antibiotic Oint 1 GM Packet TOP SCH (10:10)
[2018-10-25] MEDS: Loratadine 10 MG TAB PO SCH (10:10)
[2018-10-25] MEDS: NIFEdipine XL 30 MG TAB PO SCH ×2 (10:10→20:16)
--- NOTE | 2018-10-25 12:24 | PRG ---
DATE OF SERVICE: 10/25/2018 SUBJECTIVE: Ms. Devi is a 68-year-old female with ESRD and was admitted for mental status change. Initial imaging, CT scan on admission was said to be negative. However, mentation remains unimproved. She has now spontaneous eye opening, but could not follow commands, and she is having these intermittent hiccups. The patient also was noted to be febrile and currently on empiric IV antibiotics. She is receiving currently IV antibiotics. ID consult has been done. In addition, we are doing a daily dialysis with this patient for possibility of uremia to explain the said WEAVER AX[employer] changes. OBJECTIVE: VITAL SIGNS: Blood pressure is 196/63, heart rate 76, respiratory rate 12, and O2 saturation 100%. GENERAL: The patient is awake with spontaneous eye opening, but is not following commands. SKIN: Adequate turgor. HEENT: Pinkish conjunctivae. Anicteric sclerae. NECK: No neck mass. No carotid bruits. No JVD. CHEST: No deformities. LUNGS: Decreased breath sounds. HEART: Normal sinus rhythm. No murmur. No gallops. No rubs. ABDOMEN: Globular, soft, nontender. No masses. EXTREMITIES: No edema. No deformities. NEUROLOGIC: Spontaneous eye opening, not following commands. IMAGING STUDIES: Chest x-ray of October 23, 2018; there is no pneumothorax, no infiltrates. On October 23, 2018, cardiac echo showed EF of 50% to 55%, left ventricular hypertrophy. LABORATORY DATA: Laboratories of October 25, 2018: White count 11.1, hemoglobin 11.4, hematocrit 37. Sodium 135, potassium 4.1, chloride 97, carbon dioxide 23, BUN 24, creatinine 8.72. ASSESSMENT AND PLAN: 1. End-stage renal disease - we will again schedule for hemodialysis 3 hours today as tolerated by the patient. Fluid removal only as tolerated. We are doing consecutive dialysis due to the possibility that the WEAVER AXMINSTER changes may be related to uremia. The patient has not been able to do her peritoneal dialysis in the last several days at home. 2. Fever. The patient is currently on empiric IV antibiotics. ID is following. 3. End-stage renal disease - the patient converted to hemodialysis. Scheduled for hemodialysis again today and tomorrow. Overall prognosis remains guarded. Job ID: [id number]
[2018-10-25] MEDS ORDERED: Heparin 1,000 UNITS/ML VIAL ONE (13:20)
--- NOTE | 2018-10-25 13:27 | CT ---
Exam: Pre and postcontrast head CT COMPARISON: 10/21/2018 FINDINGS: Noncontrast head CT: No parenchymal hemorrhage. No extra-axial hematoma. No midline shift Basilar cisterns are patent. Age-appropriate atrophy. Chavira-white matter differentiation is preserved No hydrocephalus White matter hypodensities due to chronic small vessel ischemic changes are once again demonstrated. Calvarium is intact. Stable posterior left scalp hematoma. Left maxillary sinus and right sphenoid sinus disease. Adequate mastoid air cell aeration Postcontrast CT: No pathologic enhancement IMPRESSION: 1. No acute intracranial process 2. No pathologic enhancement of the brain parenchyma.
[2018-10-25] MEDS ORDERED: ISOVUE-370 76%-LOCM 1 ML ONE (13:56)
[2018-10-25] MEDS: Enalaprilat Dihydrate 1.25 MG/ML VIAL SLOW IVP SCH ×2 (14:18→20:14)
--- NOTE | 2018-10-25 19:54 | PDOC.HOSPP ---
- Subjective non-verbal Subjective: Patient seen and examined for Encephalopathy. Remains confused. Started on HD. No overnight events - Objective Vital Signs & Weight: Vital Signs (12 hours) Temp Pulse BP Pulse Ox 10/25/18 15:40 99.8 F H 10/25/18 14:18 191/83 H 10/25/18 11:30 98.6 F 10/25/18 11:00 100 10/25/18 10:11 95 191/83 H 10/25/18 08:00 100 Weight Admit Weight 135 lb Weight 132 lb 0.91 oz Most Recent Monitor Data Heart Rate from ECG 94 NIBP 163/70 NIBP BP-Mean 101 Respiration from ECG 16 SpO2 100 I&O: 10/24/18 10/25/18 10/26/18 06:59 06:59 06:59 Intake Total 100 759.5 445 Output Total 1100 Balance 100 -340.5 445 Result Diagrams: 10/25/18 04:37 10/25/18 04:37 Additional Labs: Accuchecks 10/25/18 10/25/18 17:03 10:45 POC Glucose 83 101 EKG Reviewed by me: Yes (Tele SR) ROS - Review of Systems ROS unobtainable: due to mental status - Medication Medications: Active Medications Generic Name Dose Route Start Last Admin Trade Name Freq PRN Reason Stop Dose Admin Acetaminophen 325 mg 10/24/18 05:14 10/24/18 21:18 Tylenol [place] 325 mg Q4H PRN Administration Headache/Fever or Pain Aspirin 81 mg 10/22/18 09:00 10/25/18 10:09 Ecotrin PO Not Given DAILY [facility] Aspirin 300 mg 10/25/18 09:00 10/25/18 10:09 Aspirin [place] 300 mg DAILY NIKOLAS Administration Carvedilol 12.5 mg 10/21/18 17:00 10/25/18 16:44 Coreg PO Not Given BID[facility] Clonidine 0.1 mg 10/25/18 09:30 10/25/18 10:15 [id number] Patch TD 0.1 mg Q7DAYS NIKOLAS Administration Cyanocobalamin 1,000 mcg 10/22/18 09:00 10/25/18 10:09 Vitamin B-12 PO Not Given DAILY [facility] Enalaprilat 0.625 mg 10/25/18 14:00 10/25/18 14:18 Vasotec SLOW IVP 0.625 mg Q6H NIKOLAS Administration Folic Acid 1 mg 10/22/18 09:00 10/25/18 10:09 Folvite PO Not Given DAILY [facility] Heparin Sodium (Porcine) 5,000 units 10/25/18 09:00 10/25/18 10:10 Heparin SC 5,000 units BID NIKOLAS Administration Hydralazine HCl 10 mg 10/21/18 11:51 10/25/18 06:20 Apresoline SLOW IVP 10 mg Q4H PRN Administration SBP Greater Than 180 Hydralazine HCl 25 mg 10/21/18 15:00 10/25/18 15:07 Apresoline PO Not Given TID NIKOLAS Dextrose/Water 500 mls @ 50 mls/hr 10/24/18 14:45 10/25/18 18:14 D5w IV Not Given .Q10H NIKOLAS Piperacillin Sod/Tazobactam 100 mls @ 200 mls/hr 10/24/18 15:00 10/25/18 02: 51 Sod 2.25 gm/ Sodium Chloride IVPB 100 mls 0300,1500 NIKOLAS Administration Loratadine 10 mg 10/22/18 09:00 10/25/18 10:10 Claritin PO Not Given DAILY N[facility] Neomycin/Polymyxin/Bacitracin 1 gm 10/24/18 09:00 10/25/18 10:10 Triple Antibiotic TOP 1 gm DAILY NIKOLAS Administration Nifedipine 30 mg 10/21/18 21:00 10/25/18 10:10 Procardia Xl PO Not Given BID NIKOLAS Sodium Chloride 10 ml 10/21/18 11:44 10/25/18 14:20 Flush - Normal Saline IVF 10 ml PRN PRN Administration Saline Flush Tramadol HCl 50 mg 10/23/18 17:26 10/23/18 18:25 Ultram PO 50 mg Q4H PRN Administration Pain 1-5 - Exam Heart: RRR, no rubs Respiratory: CTAB, no ronchi Gastrointestinal: soft, normal bowel sounds Psychiatric: not oriented Hosp A/P - Plan plan discussed w/ family IMPRESSION: 1. Toxic metabolic encephalopathy - probably uremic encephalopathy. 2. Peritoneal dialysis catheter malfunction. - Catheter dced. Started on HD 3. Pneumonia ? Aspiration 4. Hyperkalemia/Hyponatremia. 5. Elevated troponin, suspected to be secondary to type 2 myocardial infarction. 6. Hypertension - uncontrolled. 7. DM 2. 8. Dyslipidemia. 9. Secondary hyperparathyroidism. 10. Anemia of chronic renal insufficiency. PLAN: Cont IMCU monitoring Cont Empiric Atbx (IV Vancomycin/Zosyn) CXR in AM Hemodialysis initiated Cont Neurochecks Cont to monitor Add Clonidine Patch Cont other meds as below
[2018-10-25] MEDS: Acetaminophen 325 MG Suppository PR PRN (20:18)
--- NOTE | 2018-10-26 01:11 | CON ---
DATE OF CONSULTATION: 10/25/2018 HISTORY OF PRESENT ILLNESS: Ms. Devi is a very pleasant 68-year-old female. She has end-stage renal disease. She has been a peritoneal dialysis catheter patient for several years. Yesterday, she was started on hemodialysis. Her son says her mental status has improved dramatically compared to yesterday. He tells me she was obtunded yesterday. She will open her eyes and she moves more spontaneously today. I am consulted because of her presence in the intermediate care unit. PAST MEDICAL HISTORY: Remarkable for; 1. Diabetes, longstanding. 2. End-stage renal disease. 3. Secondary hyperparathyroidism. 4. History of fibroid tumors. 5. History of tubal ligation and bladder suspension. 6. History of lipid disorder. SOCIAL HISTORY: She is a nonsmoker, nondrinker. FAMILY HISTORY: Positive for hypertension and diabetes. MEDICATIONS: Have been reviewed. REVIEW OF SYSTEMS: 10 point review of systems completed, not obtainable. PHYSICAL EXAMINATION: GENERAL: She is in no distress. VITAL SIGNS: She is afebrile now. She was febrile yesterday to 101.2. HEENT: Pupils are reactive. Sclerae are anicteric. NECK: Without lymphadenopathy. LUNGS: Clear. HEART: Regular rhythm. S1 and S2 are normal. Grade 2/6 systolic murmur. ABDOMEN: Soft and nontender. No guarding. No masses. EXTREMITIES: Without clubbing, cyanosis, or edema. LABORATORY DATA: Blood cultures from yesterday are negative. White count 11.1, hemoglobin 11.4, platelets 271. Electrolytes; sodium 135, potassium 4.1, chloride 97, bicarb 23, BUN 24, creatinine 8.72. Creatinine was 16.27 yesterday. BUN was 52 yesterday. BUN has never been over 55. IMPRESSION: 1. Encephalopathy of unclear etiology. It appears to be improving with hemodialysis. 2. Her fever is of concern, although her exam does not really fit one of meningitis. 3. Encephalitis is certainly in the differential, but significant improvement in the last 24 hours argues against that. 4. Antimicrobial therapy. We will continue for now and she appears to have defervesced. Dr. Miller is following as well from Infectious Disease. I agree with current care. This is a 50 minute consult, with greater than 50% of time spent on unit coordinating care. Job ID: [id number] [facility]
[2018-10-26] MEDS: Enalaprilat Dihydrate 1.25 MG/ML VIAL SLOW IVP SCH ×2 (02:17→10:30)
[2018-10-26] MEDS: Piperacillin/Tazobactam 2.25 GM in Sodium Chloride 0.9% 100 ML IVPB SCH (04:57)
[2018-10-26 06:12] LABS: #Eosinphils 0.1 thou/uL (0.0-0.7); #Lymphocytes 1.4 thou/uL (1.20-3.40); #Monocytes 1.2 thou/uL (0.11-0.59); #Neutrophils 7.7 thou/uL (1.40-6.50); %Basophils 0.3 % (0.0-1.0); %Eosinophils 1.2 % (0.0-10.0); %Monocytes 11.3 % (0.0-10.0); %Neutrophils 74.1 % (42.0-75.0); Hemoglobin 11.7 g/dL (12.0-16.0); Mean Corpuscular HGB CONC 30.5 g/dL (32.0-36.0); Mean Corpuscular Volume 85.4 fL (78.0-98.0); Mean Platelet Volume 7.8 fL (7.4-10.4); Platelet Count 284 thou/uL (130-400); RBC Distribution Width 16.9 % (11.5-14.5); Red Blood Cell (RBC) Count 4.48 mill/uL (4.20-5.40); White Blood Cell (WBC) Count 10.4 thou/uL (4.8-10.8)
[2018-10-26 06:34] LABS: ALT (SGPT) Less than 7 U/L (8-55); AST (SGOT) 29 U/L (5-34); Albumin 3.2 g/dL (3.4-4.8); Alkaline Phosphatase 55 U/L (40-150); Anion Gap 18 mmol/L (10-20); BUN (Urea Nitrogen) 17 mg/dL (9.8-20.1); Bilirubin, Total 0.4 mg/dL (0.2-1.2); Calc. Creatinine Clearance 8 mL/min (70-130); Calcium 8.7 mg/dL (7.8-10.44); Carbon Dioxide 25 mmol/L (23-31); Chloride 97 mmol/L (98-107); Estimated GFR-MDRD 7; Globulin 3.5 g/dL (2.4-3.5); Glucose 89 mg/dL (80-115); Potassium 3.9 mmol/L (3.5-5.1); Protein, Total 6.7 g/dL (6.0-8.3); Sodium 136 mmol/L (136-145)
[2018-10-26 08:19] LABS: Vancomycin, Trough 22.9 ug/mL
[2018-10-26] MEDS ORDERED: Enalaprilat Dihydrate 1.25 MG/ML VIAL SLOW IVP PRN (09:33)
--- NOTE | 2018-10-26 09:42 | PRG ---
DATE OF SERVICE: 10/26/2018 SUBJECTIVE: Maddie Devi is much more alert today. She is quite verbal. She is afebrile. OBJECTIVE: VITAL SIGNS: Heart rate is 80, blood pressure is 145/60, respiratory rate is 18. LUNGS: Clear. HEART: Regular rhythm. ABDOMEN: Soft and nontender. EXTREMITIES: Without edema. LABORATORY DATA: White count 10.4, hemoglobin 11.7, platelets 284,000. Sodium 136, potassium 3.9, chloride 97, bicarb 25, BUN 17, creatinine 5.9. IMPRESSION AND PLAN: Encephalopathy likely secondary to infected peritoneal dialysis, now doing well with hemodialysis. She is probably stable enough to move out of the intermediate care unit to a medical bed. Job ID: [id number]
[2018-10-26] MEDS ORDERED: Amlodipine 5 MG TAB PO SCH (09:45)
[2018-10-26] MEDS: hydrALAZINE 25 MG TAB PO SCH ×3 (09:51→21:18)
[2018-10-26] MEDS: Heparin 5,000 UNITS/ML VIAL SC SCH ×2 (09:51→21:18)
[2018-10-26] MEDS: Cyanocobalamin (Vitamin B-12) 1,000 MCG TAB PO SCH (09:52)
[2018-10-26] MEDS: Aspirin 81 mg Enteric Coated Tablet PO SCH (09:52)
[2018-10-26] MEDS: Loratadine 10 MG TAB PO SCH (09:52)
[2018-10-26] MEDS: Triple Antibiotic Oint 1 GM Packet TOP SCH (09:52)
[2018-10-26] MEDS: Folic Acid 1 MG TAB PO SCH (09:52)
[2018-10-26] MEDS: Carvedilol 6.25 MG TAB PO SCH ×2 (09:52→17:42)
[2018-10-26] MEDS: Aspirin 300 MG Suppository PR SCH (09:53)
[2018-10-26] MEDS: Dextrose 5% in Water 500 ML IV SCH ×2 (09:53→21:17)
--- NOTE | 2018-10-26 10:03 | PRG ---
DATE OF SERVICE: 10/26/2018 SERVICE: Renal Medicine. SUBJECTIVE: Ms. Devi is a 68-year-old female, followed up by the Renal Service for her maintenance hemodialysis. She has been having decreased mentation. We feel that this could be from uremia. She is receiving daily dialysis. She has received 2 consecutive dialysis with improvement with the biochemical parameters. She is noted to be more awake and partially oriented this morning. No complaints of chest pain or shortness of breath. She is scheduled for dialysis this afternoon. OBJECTIVE: VITAL SIGNS: Blood pressure 145/60, heart rate 81, respiratory rate 18, pulse ox 100%, and temperature 99.5. GENERAL: Noted to be awake, can follow simple commands. SKIN: Adequate turgor. HEENT: She has pinkish conjunctivae. Anicteric sclerae. NECK: No neck mass. No carotid bruits. No JVD. CHEST: No deformities. LUNGS: Clear breath sounds. HEART: Normal sinus rhythm. No murmur. No gallops. No rubs. ABDOMEN: Globular, soft, and nontender. No masses. EXTREMITIES: No edema. No deformities. MEDICATIONS: Medications of October 26, 2018, was reviewed. LABORATORY DATA: Laboratories of October 26, 2018; white count 10.4, hemoglobin 11.7. Sodium 136, potassium 3.9, chloride 97, carbon dioxide 25, BUN 17, creatinine 5.9, AST 29, ALT less than 7, calcium 8.7, and albumin 3.2. ASSESSMENT AND PLAN: 1. Metabolic encephalopathy - most likely from uremic signs and symptoms. Undergoing daily dialysis. Mentation is improving with daily dialysis. Continue supportive care. 2. End-stage renal disease - we will place this patient starting tomorrow on a Friday, , and Friday dialysis regimen. My plan is to do simply a 3-hour hemodialysis with each treatment. Again, fluid removal only as tolerated. Agree with current management. ADDENDUM: CT scan of the brain was negative. Job ID: [id number]
--- NOTE | 2018-10-26 10:13 | RAD ---
CHEST 1 VIEW: COMPARISON: 11/03/2018. HISTORY: Evaluate for pneumonia. FINDINGS: Enlarged cardiac silhouette. Atherosclerosis of the aortic knob. Stable HemoSplit dialysis catheter . No masses or consolidation. No pneumothorax. IMPRESSION: 1. Cardiomegaly. No evidence of congestive heart failure. 2. Atherosclerosis. POS: OFF
[2018-10-26] MEDS: NIFEdipine XL 30 MG TAB PO SCH (10:30)
--- NOTE | 2018-10-26 13:45 | PRG ---
DATE OF SERVICE: 10/25/2018 SUBJECTIVE: The patient is wide awake, establishes eye contact, but does not interact verbally. She will follow some commands. She has had no vomiting. She is eating properly. No respiratory symptoms. No abdominal pain. OBJECTIVE: VITAL SIGNS: T-max 100, blood pressure 125/57, pulse 78, respirations 18, O2 saturation 100. GENERAL: Awake and alert. Does not appear in distress. LUNGS: Clear. HEART: S1, S2. Regular rate. ABDOMEN: Soft, not distended. EXTREMITIES: Moves extremities equally. LABORATORY DATA: White cell count 10.4, hemoglobin 11, platelets 284. Creatinine is 5.9, sodium 136. Tunneled hemodialysis catheter in the right IJ position. Peritoneal dialysis catheter has been removed. Two sets of blood culture, negative. Peritoneal fluid culture, negative. Peritoneal dialysis fluid WBC count minimal. Repeat chest x-ray, cardiomegaly. No evidence of CHF. No infiltrates. ASSESSMENT AND DISCUSSION: Type-2 diabetes; end-stage renal disease, on peritoneal dialysis for the past 4 years, inadequate peritoneal dialysis with likely encephalopathy resulting from it as the most likely reason for the altered mental status and fever associated with abnormal lung exam and findings on chest x-ray. The patient continues to receive broad-spectrum antimicrobial therapy. We will go ahead and discontinue vancomycin and switch her to levofloxacin, adjusted for renal function. Discontinue Zosyn as well. Some improvement in mental status. We will continue with hemodialysis and see what further improvement she will develop. May require further evaluation of the [employer] with spinal fluid testing depending on clinical progress, probably not. Job ID: [id number]
--- NOTE | 2018-10-26 14:51 | PRG ---
DATE OF SERVICE: 10/26/2018 Maddie Devi is doing well after 10/23/2018 right IJ hemodialysis catheter, left arm fistula, antecubital vein, proximal radial artery, outflow primary cephalic vein in upper arm, and removal of PD catheter. Abdomen is soft and nontender. Her PD dressings being changed daily and the dressing is dry. She has a good thrill and bruit in her fistula, and hand function seems to be good. Hemodialysis catheter is functioning well for dialysis. The patient's mental status is much improved. She converses much closer to baseline. Her family agrees. At this point, I will see her as needed. She should follow up in my office in 3 to 4 weeks. Continue to use her hemodialysis catheter until we reassess her fistula for access in the future. Job ID: [id number]
[2018-10-26] MEDS: Amlodipine 5 MG TAB PO SCH (21:18)
[2018-10-26] MEDS: Doxycycline 100 MG CAP PO SCH (21:18)
--- NOTE | 2018-10-26 23:20 | PDOC.HOSPP ---
- Subjective Subjective: Patient seen and examined for Encephalopathy. Mentation improving. No new complaints. No overnight events - Objective Vital Signs & Weight: Vital Signs (12 hours) Temp 10/26/18 19:27 98.3 F 10/26/18 15:17 98.8 F 10/26/18 11:56 99.0 F Weight Admit Weight 135 lb Weight 123 lb 10.869 oz Most Recent Monitor Data Heart Rate from ECG 79 NIBP 102/49 NIBP BP-Mean 66 Respiration from ECG 25 SpO2 100 I&O: 10/25/18 10/26/18 10/27/18 06:59 06:59 06:59 Intake Total 759.5 923 1403 Output Total 1100 1900 Balance -340.5 -977 1403 Result Diagrams: 10/27/18 04:39 10/27/18 04:39 Additional Labs: Accuchecks 10/26/18 10/26/18 10/26/18 20:39 16:15 11:15 POC Glucose 111 H 90 128 H 10/24/18 20:25 POC Glucose 77 Radiology Reviewed by me: Yes (CXR - no new infiltrate) EKG Reviewed by me: Yes (Tele SR) ROS - Review of Systems ROS unobtainable: due to mental status - Medication Medications: Active Medications Generic Name Dose Route Start Last Admin Trade Name Freq PRN Reason Stop Dose Admin Acetaminophen 325 mg 10/24/18 05:14 10/25/18 20:18 Tylenol [place] 325 mg Q4H PRN Administration Headache/Fever or Pain Amlodipine Besylate 5 mg 10/26/18 21:00 10/26/18 21:18 Norvasc PO 5 mg BID NIKLOAS Administration Aspirin 81 mg 10/22/18 09:00 10/26/18 09:52 Ecotrin PO 81 mg DAILY NIKOLAS Administration Aspirin 300 mg 10/25/18 09:00 10/26/18 09:53 Aspirin [place] Not Given DAILY [facility]IK[facility]AS Carvedilol 12.5 mg 10/21/18 17:00 10/26/18 17:42 Coreg PO Not Given BID- [facility] Clonidine 0.1 mg 10/25/18 09:30 10/25/18 10:15 [id number]-[id number] Patch TD 0.1 mg Q7DAYS NIKOLAS Administration Cyanocobalamin 1,000 mcg 10/22/18 09:00 10/26/18 09:52 Vitamin B-12 PO 1,000 mcg DAILY NIKOLAS Administration Doxycycline Hyclate 100 mg 10/26/18 21:00 10/26/18 21:18 Vibramycin PO 100 mg BID NIKOLAS Administration Folic Acid 1 mg 10/22/18 09:00 10/26/18 09:52 Folvite PO 1 mg DAILY NIKOLAS Administration Heparin Sodium (Porcine) 5,000 units 10/25/18 09:00 10/26/18 21:18 Heparin SC 5,000 units BID NIKOLAS Administration Hydralazine HCl 10 mg 10/21/18 11:51 10/25/18 06:20 Apresoline SLOW IVP 10 mg Q4H PRN Administration SBP Greater Than 180 Hydralazine HCl 25 mg 10/21/18 15:00 10/26/18 21:18 Apresoline PO 25 mg TID NIKOLAS Administration Dextrose/Water 500 mls @ 50 mls/hr 10/24/18 14:45 10/26/18 21:17 D5w IV 500 mls .Q10H NIKOLAS Administration Loratadine 10 mg 10/22/18 09:00 10/26/18 09:52 Claritin PO 10 mg DAILY NIKOLAS Administration Neomycin/Polymyxin/Bacitracin 1 gm 10/24/18 09:00 10/26/18 09:52 Triple Antibiotic TOP 1 gm DAILY NIKOLAS Administration Sodium Chloride 10 ml 10/21/18 11:44 10/25/18 14:20 Flush - Normal Saline IVF 10 ml PRN PRN Administration Saline Flush Tramadol HCl 50 mg 10/23/18 17:26 10/23/18 18:25 Ultram PO 50 mg Q4H PRN Administration Pain 1-5 - Exam NAD Heart: RRR, no rubs Respiratory: CTAB, no ronchi Gastrointestinal: soft, non-tender, normal bowel sounds Neurological: no new deficit Psychiatric: oriented to person, not oriented Hosp A/P - Plan IMPRESSION: 1. Toxic metabolic encephalopathy - probably uremic encephalopathy. slowly improving 2. Peritoneal dialysis catheter malfunction. - Catheter dced. Started on HD 3. Pneumonia ? Aspiration 4. Hyperkalemia/Hyponatremia. 5. Elevated troponin, suspected to be secondary to type 2 myocardial infarction. 6. Hypertension - uncontrolled. 7. DM 2. 8. Dyslipidemia. 9. Secondary hyperparathyroidism. 10. Anemia of chronic renal insufficiency. PLAN: Cont Empiric Atbx (IV Vancomycin/Zosyn) Hemodialysis initiated Cont to monitor Cont other meds as above
[2018-10-27 05:13] LABS: #Eosinphils 0.2 thou/uL (0.0-0.7); #Lymphocytes 1.4 thou/uL (1.20-3.40); #Monocytes 0.9 thou/uL (0.11-0.59); #Neutrophils 4.7 thou/uL (1.40-6.50); %Basophils 0.4 % (0.0-1.0); %Eosinophils 2.8 % (0.0-10.0); %Lymphocytes 19.4 % (21.0-51.0); %Monocytes 12.6 % (0.0-10.0); %Neutrophils 64.7 % (42.0-75.0); Hemoglobin 11.1 g/dL (12.0-16.0); Mean Corpuscular HGB CONC 30.2 g/dL (32.0-36.0); Mean Corpuscular Hemoglobin 25.6 pg (27.0-31.0); Mean Corpuscular Volume 85.1 fL (78.0-98.0); Mean Platelet Volume 7.8 fL (7.4-10.4); Platelet Count 272 thou/uL (130-400); RBC Distribution Width 16.8 % (11.5-14.5); Red Blood Cell (RBC) Count 4.33 mill/uL (4.20-5.40); White Blood Cell (WBC) Count 7.3 thou/uL (4.8-10.8)
[2018-10-27 05:30] LABS: ALT (SGPT) Less than 7 U/L (8-55); AST (SGOT) 22 U/L (5-34); Alkaline Phosphatase 49 U/L (40-150); Anion Gap 13 mmol/L (10-20); BUN (Urea Nitrogen) 9 mg/dL (9.8-20.1); Bilirubin, Total 0.4 mg/dL (0.2-1.2); Calc. Creatinine Clearance 12 mL/min (70-130); Carbon Dioxide 24 mmol/L (23-31); Chloride 91 mmol/L (98-107); Estimated GFR-MDRD 11; Globulin 3.3 g/dL (2.4-3.5); Glucose 353 mg/dL (80-115); Potassium 3.4 mmol/L (3.5-5.1); Protein, Total 6.3 g/dL (6.0-8.3); Sodium 125 mmol/L (136-145)
[2018-10-27] MEDS: Dextrose 5% in Water 500 ML IV SCH ×2 (06:04→14:18)
--- NOTE | 2018-10-27 09:43 | PRG ---
DATE OF SERVICE: 10/27/2018 SUBJECTIVE: Ms. Devi is a 68-year-old female with ESRD and was admitted for confusion. Initially, we felt that she could be having uremic signs and symptoms. She underwent daily hemodialysis. Her chemistries have much dramatically improved with daily dialysis. Her BUN today is 9 with a creatinine of 3.95. She still is intermittently confused, but her mentation is more improved compared in the last few days. No acute events noted last night. OBJECTIVE: VITAL SIGNS: Blood pressure is 172/75, heart rate 84, respiratory rate 17, and pulse ox is 100%, temperature 98.8. GENERAL: She is noted to be awake, can follow simple commands, but still occasionally confused. HEENT: She has pinkish conjunctivae. Anicteric sclerae. No neck mass. No carotid bruits. No JVD. CHEST: No deformities. LUNGS: Clear breath sounds. HEART: Normal sinus rhythm. No murmurs, gallops, or rubs. ABDOMEN: Globular, soft, nontender. No masses. EXTREMITIES: No edema. No deformities. MEDICATIONS: Medications of October 27, 2018, was reviewed. LABORATORY DATA: Laboratories of October 27, 2018, showed the following; white count 7.3, hemoglobin 11.1. Sodium 125, potassium 3.4, chloride 91, carbon dioxide 24, BUN 9, creatinine 3.95, calcium is 8.0, albumin 3.0. ASSESSMENT AND PLAN: 1. Metabolic encephalopathy. Continue supportive care. Previous imaging of the brain was essentially negative, showed no acute intracranial abnormality. 2. End-stage renal disease, continuing hemodialysis regimen. We have placed this patient now on a 3 times a week hemodialysis. We will resume back dialysis tomorrow, Friday. 3. Hypertension, continue current BP medications. Case discussed at length with the daughter. Job ID: [id number]
[2018-10-27] MEDS: Aspirin 300 MG Suppository PR SCH (09:48)
[2018-10-27] MEDS: Doxycycline 100 MG CAP PO SCH ×2 (09:57→20:54)
[2018-10-27] MEDS: Carvedilol 6.25 MG TAB PO SCH ×2 (09:57→17:45)
[2018-10-27] MEDS: Loratadine 10 MG TAB PO SCH (09:58)
[2018-10-27] MEDS: Aspirin 81 mg Enteric Coated Tablet PO SCH (09:58)
[2018-10-27] MEDS: Amlodipine 5 MG TAB PO SCH ×2 (09:58→20:54)
[2018-10-27] MEDS: Folic Acid 1 MG TAB PO SCH (09:58)
[2018-10-27] MEDS: hydrALAZINE 25 MG TAB PO SCH ×3 (09:58→20:54)
[2018-10-27] MEDS: Heparin 5,000 UNITS/ML VIAL SC SCH ×2 (09:59→20:54)
[2018-10-27] MEDS: Cyanocobalamin (Vitamin B-12) 1,000 MCG TAB PO SCH (09:59)
[2018-10-27] MEDS: Triple Antibiotic Oint 1 GM Packet TOP SCH (10:09)
[2018-10-27] MEDS: Dextrose 5 % And 0.9 % NaCl 1,000 ML IV SCH (15:14)
--- NOTE | 2018-10-27 15:46 | PRG ---
DATE OF SERVICE: 10/27/2018 SUBJECTIVE: Ms. Devi has no complaints. She is a little slower to answer questions today, but I did awaken her from sleep. OBJECTIVE: VITAL SIGNS: She is afebrile, heart rate 76, and blood pressure 153/57. LUNGS: Clear. HEART: Regular rhythm. ABDOMEN: Soft. LABORATORY DATA: White count 7.3, hemoglobin 11.1, platelets 272. Sodium 125, potassium 3.4, chloride 91, bicarb 24, BUN 9, and creatinine 3.95. IMPRESSION: 1. End-stage renal disease, now on hemodialysis. 2. Encephalopathy that appears to be improving with hemodialysis. 3. History of hypertension. 4. Deconditioning. PLAN: Continue current supportive care measures. Job ID: [id number]
--- NOTE | 2018-10-27 20:32 | PDOC.HOSPP ---
- Subjective Subjective: Patient seen and examined for Encephalopathy. Confusion improving. Started on modified diet. No overnight events - Objective Vital Signs & Weight: Vital Signs (12 hours) Temp Pulse Pulse BP BP Pulse Ox 10/27/18 19:59 97.9 F 10/27/18 17:45 115/41 L 10/27/18 15:20 98.9 F 68 122/53 L 100 10/27/18 15:14 76 153/57 H 10/27/18 10:33 97.7 F 10/27/18 09:58 76 172/68 H 10/27/18 09:57 172/68 H Weight Admit Weight 135 lb Weight 125 lb 10.616 oz Most Recent Monitor Data Heart Rate from ECG 77 NIBP 115/41 NIBP BP-Mean 65 Respiration from ECG 13 SpO2 100 I&O: 10/26/18 10/27/18 10/28/18 06:59 06:59 06:59 Intake Total 923 2174 1098 Output Total 1900 Balance -977 2174 1098 Result Diagrams: 10/27/18 04:39 10/27/18 04:39 Additional Labs: Accuchecks 10/27/18 10/27/18 10/27/18 16:10 10:17 05:40 POC Glucose 99 93 87 10/26/18 20:39 POC Glucose 111 H EKG Reviewed by me: Yes (Tele SR) ROS - Review of Systems ROS unobtainable: due to mental status - Medication Medications: Active Medications Generic Name Dose Route Start Last Admin Trade Name Freq PRN Reason Stop Dose Admin Acetaminophen 325 mg 10/24/18 05:14 10/25/18 20:18 Tylenol [place] 325 mg Q4H PRN Administration Headache/Fever or Pain Amlodipine Besylate 5 mg 10/26/18 21:00 10/27/18 09:58 Norvasc PO 5 mg BID NIKOLAS Administration Aspirin 81 mg 10/22/18 09:00 10/27/18 09:58 Ecotrin PO 81 mg DAILY NIKOLAS Administration Aspirin 300 mg 10/25/18 09:00 10/27/18 09:48 Aspirin [place] Not Given DAILY [facility] Carvedilol 12.5 mg 10/21/18 17:00 10/27/18 17:45 Coreg PO Not Given BID-[facility] Cyanocobalamin 1,000 mcg 10/22/18 09:00 10/27/18 09:59 Vitamin B-12 PO 1,000 mcg DAILY NIKOLAS Administration Doxycycline Hyclate 100 mg 10/26/18 21:00 10/27/18 09:57 Vibramycin PO 100 mg BID NIKOLAS Administration Folic Acid 1 mg 10/22/18 09:00 10/27/18 09:58 Folvite PO 1 mg DAILY NIKOLAS Administration Heparin Sodium (Porcine) 5,000 units 10/25/18 09:00 10/27/18 09:59 Heparin SC 5,000 units BID NIKOLAS Administration Hydralazine HCl 10 mg 10/21/18 11:51 10/25/18 06:20 Apresoline SLOW IVP 10 mg Q4H PRN Administration SBP Greater Than 180 Hydralazine HCl 25 mg 10/21/18 15:00 10/27/18 15:14 Apresoline PO 25 mg TID NIKOLAS Administration Dextrose/Sodium Chloride 1,000 mls @ 50 mls/hr 10/27/18 14:15 10/27/18 15:14 D5 0.9% Ns IV 1,000 mls .Q20H NIKOLAS Administration Loratadine 10 mg 10/22/18 09:00 10/27/18 09:58 Claritin PO 10 mg DAILY NIKOLAS Administration Neomycin/Polymyxin/Bacitracin 1 gm 10/24/18 09:00 10/27/18 10:09 Triple Antibiotic TOP 1 gm DAILY NIKOLAS Administration Sodium Chloride 10 ml 10/21/18 11:44 10/25/18 14:20 Flush - Normal Saline IVF 10 ml PRN PRN Administration Saline Flush Tramadol HCl 50 mg 10/23/18 17:26 10/23/18 18:25 Ultram PO 50 mg Q4H PRN Administration Pain 1-5 - Exam NAD Heart: RRR, no gallops Respiratory: CTAB, no rales Gastrointestinal: soft, non-tender, non-distended Neurological: no new deficit Psychiatric: somnolent Hosp A/P - Plan PT/OT, DVT proph w/heparin IMPRESSION: 1. Toxic metabolic encephalopathy - probably uremic encephalopathy. slowly improving 2. Peritoneal dialysis catheter malfunction. - Catheter dced. Started on HD 3. Pneumonia ? Aspiration 4. Hyperkalemia/Hyponatremia/Hypokalemia 5. Elevated troponin, suspected to be secondary to type 2 myocardial infarction. 6. Hypertension. 7. DM 2. 8. Dyslipidemia. 9. Secondary hyperparathyroidism. 10. Anemia of chronic renal insufficiency. PLAN: DC Clonidine patch Change D5W to D5NS @ 50 due to hyponatremia Cont other meds as above Tolerating Hemodialysis AM labs
[2018-10-28 07:06] LABS: #Basophils 0.1 thou/uL (0.0-0.2); #Eosinphils 0.3 thou/uL (0.0-0.7); #Lymphocytes 1.7 thou/uL (1.20-3.40); #Monocytes 0.9 thou/uL (0.11-0.59); #Neutrophils 4.1 thou/uL (1.40-6.50); %Basophils 1.1 % (0.0-1.0); %Lymphocytes 24.3 % (21.0-51.0); %Monocytes 12.4 % (0.0-10.0); %Neutrophils 58.2 % (42.0-75.0); Hemoglobin 11.1 g/dL (12.0-16.0); Mean Corpuscular HGB CONC 30.3 g/dL (32.0-36.0); Mean Corpuscular Hemoglobin 24.9 pg (27.0-31.0); Mean Corpuscular Volume 82.3 fL (78.0-98.0); Mean Platelet Volume 7.5 fL (7.4-10.4); Platelet Count 287 thou/uL (130-400); RBC Distribution Width 16.9 % (11.5-14.5); Red Blood Cell (RBC) Count 4.46 mill/uL (4.20-5.40); White Blood Cell (WBC) Count 7.1 thou/uL (4.8-10.8)
[2018-10-28 07:33] LABS: ALT (SGPT) Less than 7 U/L (8-55); AST (SGOT) 24 U/L (5-34); Albumin 3.1 g/dL (3.4-4.8); Alkaline Phosphatase 52 U/L (40-150); Anion Gap 15 mmol/L (10-20); BUN (Urea Nitrogen) 22 mg/dL (9.8-20.1); Bilirubin, Total 0.4 mg/dL (0.2-1.2); Calc. Creatinine Clearance 8 mL/min (70-130); Calcium 8.2 mg/dL (7.8-10.44); Carbon Dioxide 23 mmol/L (23-31); Chloride 97 mmol/L (98-107); Estimated GFR-MDRD 6; Globulin 3.2 g/dL (2.4-3.5); Glucose 86 mg/dL (80-115); Potassium 3.7 mmol/L (3.5-5.1); Protein, Total 6.3 g/dL (6.0-8.3); Sodium 131 mmol/L (136-145)
[2018-10-28 08:17] LABS: Vancomycin, Random 14.2 ug/mL (See Comment)
[2018-10-28] MEDS: Doxycycline 100 MG CAP PO SCH ×2 (09:07→21:22)
[2018-10-28] MEDS: Acetaminophen 500 MG TAB PO PRN (09:07)
[2018-10-28] MEDS: Aspirin 81 mg Enteric Coated Tablet PO SCH (09:07)
[2018-10-28] MEDS: Amlodipine 5 MG TAB PO SCH ×2 (09:08→21:25)
[2018-10-28] MEDS: hydrALAZINE 25 MG TAB PO SCH ×3 (09:08→21:25)
[2018-10-28] MEDS: Heparin 5,000 UNITS/ML VIAL SC SCH ×2 (09:09→21:25)
[2018-10-28] MEDS: Cyanocobalamin (Vitamin B-12) 1,000 MCG TAB PO SCH (09:09)
[2018-10-28] MEDS: Loratadine 10 MG TAB PO SCH (09:09)
[2018-10-28] MEDS: Folic Acid 1 MG TAB PO SCH (09:09)
[2018-10-28] MEDS: Carvedilol 6.25 MG TAB PO SCH ×2 (09:09→18:12)
[2018-10-28] MEDS: Triple Antibiotic Oint 1 GM Packet TOP SCH (09:10)
--- NOTE | 2018-10-28 09:25 | PRG ---
DATE OF SERVICE: 10/28/2018 SUBJECTIVE: Ms. Devi is a 68-year-old female with ESRD and followed up by the Renal Service for her maintenance hemodialysis. She was converted from peritoneal dialysis to hemodialysis due to the fact this patient is unable now to perform her peritoneal dialysis. She also has significant mental status change, which has improved over time. The feeling this may be related to her uremic encephalopathy. This morning, she is awake and comfortable. Her appetite is much improved. No complaints of chest pain or shortness of breath. OBJECTIVE: VITAL SIGNS: Blood pressure 140/74, heart rate 68, respiratory rate 12, pulse ox 95%, and temperature 98.3. GENERAL: Awake, alert, sitting comfortable, not in distress. SKIN: Adequate turgor. HEENT: She has pinkish conjunctivae. Anicteric sclerae. NECK: No neck mass. No carotid bruits. No JVD. CHEST: No deformities. LUNGS: Clear breath sounds. HEART: Normal sinus rhythm. No murmur. No gallops. No rubs. ABDOMEN: Globular, soft, and nontender. No masses. EXTREMITIES: No edema. No deformities. MEDICATIONS: Medications of October 28, 2018, was reviewed. LABORATORY DATA: Laboratories of October 28, 2018; white count 7.1, hemoglobin 11.1. Sodium 131, potassium 3.7, chloride 97, carbon dioxide 23, BUN 22, creatinine 6.8, glucose 86, AST 24, ALT less than 7, and albumin 3.1. ASSESSMENT AND PLAN: 1. End-stage renal disease - stable. We will continue current hemodialysis regimen on Friday, Friday, and Friday. Fluid removal only as tolerated. 2. Metabolic encephalopathy/uremic encephalopathy - clinically improving with dialysis. We will be continuing her maintenance hemodialysis on Friday, Friday, and Friday. Overall, agree with current management. Job ID: [id number]
[2018-10-28] MEDS: traMADol HCl 50 MG TAB PO PRN (14:24)
[2018-10-28] MEDS: Dextrose 5 % And 0.9 % NaCl 1,000 ML IV SCH (14:27)
[2018-10-28] MEDS ORDERED: Heparin 10,000 UNITS/1 ML VIAL ONE (15:00)
--- NOTE | 2018-10-28 22:09 | PDOC.HOSPP ---
- Subjective Subjective: Says she is feeling "mas o menos" today. Cannot be more specific. Ashu is in the room and says she is clearly much better than she was at admission and is getting better every day. - Objective Vital Signs & Weight: Vital Signs (12 hours) Temp Pulse BP 10/28/18 21:25 75 131/54 L 10/28/18 19:21 98.0 F 10/28/18 18:12 122/58 L 10/28/18 18:11 122/58 L 10/28/18 15:01 99.0 F 10/28/18 11:19 98.9 F Weight Admit Weight 135 lb Weight 130 lb 15.273 oz Most Recent Monitor Data Heart Rate from ECG 77 NIBP 109/62 NIBP BP-Mean 77 Respiration from ECG 20 SpO2 100 I&O: 10/27/18 10/28/18 10/29/18 06:59 06:59 06:59 Intake Total 2174 1928 1315 Balance 2174 1928 1315 Result Diagrams: 10/28/18 06:39 10/28/18 06:39 Additional Labs: Accuchecks 10/28/18 10/28/18 16:53 05:34 POC Glucose 96 95 ROS - Medication Medications: Active Medications Generic Name Dose Route Start Last Admin Trade Name Freq PRN Reason Stop Dose Admin Acetaminophen 1,000 mg 10/23/18 17:26 10/28/18 09:07 Tylenol PO 1,000 mg Q6H PRN Administration Moderate to Severe Pain (6-10) Acetaminophen 325 mg 10/24/18 05:14 10/25/18 20:18 Tylenol [place] 325 mg Q4H PRN Administration Headache/Fever or Pain Amlodipine Besylate 5 mg 10/26/18 21:00 10/28/18 21:25 Norvasc PO 5 mg BID NIKOLAS Administration Aspirin 81 mg 10/28/18 09:00 10/28/18 09:07 Ecotrin PO 81 mg DAILY NIKOLAS Administration Carvedilol 12.5 mg 10/21/18 17:00 10/28/18 18:12 Coreg PO Not Given BID-WM NIKOLAS Cyanocobalamin 1,000 mcg 10/22/18 09:00 10/28/18 09:09 Vitamin B-12 PO 1,000 mcg DAILY NIKOLAS Administration Doxycycline Hyclate 100 mg 10/26/18 21:00 10/28/18 21:22 Vibramycin PO 100 mg BID NIKOLAS Administration Folic Acid 1 mg 10/22/18 09:00 10/28/18 09:09 Folvite PO 1 mg DAILY NIKOLAS Administration Heparin Sodium (Porcine) 5,000 units 10/25/18 09:00 10/28/18 21:25 Heparin SC 5,000 units BID NIKOLAS Administration Hydralazine HCl 10 mg 10/21/18 11:51 10/25/18 06:20 Apresoline SLOW IVP 10 mg Q4H PRN Administration SBP Greater Than 180 Hydralazine HCl 25 mg 10/21/18 15:00 10/28/18 21:25 Apresoline PO 25 mg TID NIKOLAS Administration Dextrose/Sodium Chloride 1,000 mls @ 50 mls/hr 10/27/18 14:15 10/28/18 14:27 D5 0.9% Ns IV 1,000 mls .Q20H NIKOLAS Administration Loratadine 10 mg 10/22/18 09:00 10/28/18 09:09 Claritin PO 10 mg DAILY NIKOLAS Administration Neomycin/Polymyxin/Bacitracin 1 gm 10/24/18 09:00 10/28/18 09:10 Triple Antibiotic TOP 1 gm DAILY NIKOLAS Administration Sodium Chloride 10 ml 10/21/18 11:44 10/25/18 14:20 Flush - Normal Saline IVF 10 ml PRN PRN Administration Saline Flush Tramadol HCl 50 mg 10/23/18 17:26 10/28/18 14:24 Ultram PO 50 mg Q4H PRN Administration Pain 1-5 - Exam NAD Heart: RRR, no murmur, no gallops, no rubs, normal peripheral pulses Respiratory: CTAB, no wheezes, no rales, no ronchi, normal chest expansion, no tachypnea, normal percussion Gastrointestinal: soft, non-tender, non-distended, normal bowel sounds, no palpable masses (PD catheter), no hepatomegaly, no splenomegaly, no bruit, no guarding Extremities: no cyanosis, no clubbing, no edema Skin: normal turgor Psychiatric: not oriented (Still looks a little encephalopathic. Slow.) Hosp A/P (1) Encephalopathy acute Code(s): G93.40 - ENCEPHALOPATHY, UNSPECIFIED Status: Acute (2) Hyperkalemia Code(s): E87.5 - HYPERKALEMIA Status: Resolved (3) Anemia of renal disease Code(s): D63.1 - ANEMIA IN CHRONIC KIDNEY DISEASE Status: Chronic (4) Diabetes type 2, controlled Code(s): E11.9 - TYPE 2 DIABETES MELLITUS WITHOUT COMPLICATIONS Status: Chronic (5) ESRD on peritoneal dialysis Code(s): N18.6 - END STAGE RENAL DISEASE; Z99.2 - DEPENDENCE ON RENAL DIALYSIS Status: Chronic (6) Hypertension Code(s): I10 - ESSENTIAL (PRIMARY) HYPERTENSION Status: Chronic (7) Secondary hyperparathyroidism of renal origin Code(s): N25.81 - SECONDARY HYPERPARATHYROIDISM OF RENAL ORIGIN Status: Chronic (8) Hyponatremia Code(s): E87.1 - HYPO-OSMOLALITY AND HYPONATREMIA Status: Acute (9) Elevated troponin Code(s): R74.8 - ABNORMAL LEVELS OF OTHER SERUM ENZYMES Status: Acute Plan: Normal for degree of renal dysfunction. - Plan Continue hemodialysis under the care of Nephrology. Encephalopathy appears to be improving with clearing of the uremia. Hyponatremia improved with change in fluids. Continue to monitor labs.
[2018-10-29 04:46] LABS: Anion Gap 14 mmol/L (10-20); BUN (Urea Nitrogen) 13 mg/dL (9.8-20.1); Calc. Creatinine Clearance 13 mL/min (70-130); Calcium 8.2 mg/dL (7.8-10.44); Carbon Dioxide 26 mmol/L (23-31); Chloride 100 mmol/L (98-107); Estimated GFR-MDRD 11; Glucose 99 mg/dL (80-115); Potassium 3.6 mmol/L (3.5-5.1); Sodium 136 mmol/L (136-145)
--- NOTE | 2018-10-29 09:14 | PRG ---
DATE OF SERVICE: 10/29/2018 SUBJECTIVE: Ms. Devi is a 68-year-old female with ESRD, who was initially admitted for mental status change. The feeling was that this was due to her uremic encephalopathy. She has been under dialyzing herself at home. Currently, she has been converted to hemodialysis. Her mentation is much improved. Denies any chest pain or shortness of breath this morning. OBJECTIVE: VITAL SIGNS: Blood pressure 149/92, heart rate 83, respiratory rate 12, temperature 98.2, and pulse ox 99%. GENERAL: The patient is awake, alert, comfortable, not in distress. SKIN: Adequate turgor. HEENT: She has a pinkish conjunctivae. Anicteric sclerae. NECK: No neck mass. No carotid bruits. No JVD. CHEST: No deformities. LUNGS: Clear breath sounds. HEART: Normal sinus rhythm. No murmur. No gallops. No rubs. ABDOMEN: Globular, soft, and nontender. No masses. EXTREMITIES: No edema. MEDICATIONS: Medications of October 29, 2018, reviewed. LABORATORY DATA: Laboratories of October 28, 2018; white count 7.1, hemoglobin 11.1. Sodium 136, potassium 3.6, chloride 100, carbon dioxide 26, BUN 13, creatinine 4.02, and calcium 8.2. ASSESSMENT AND PLAN: 1. End-stage renal disease, stable, tolerating hemodialysis. Continue 3 times a week hemodialysis. Fluid removal only as tolerated. 2. Decreased mentation - secondary to uremic encephalopathy, much improved with dialysis. Continue current dialysis regimen. Overall, agree with current management. Recheck CBC in a.m. Job ID: [id number]
--- NOTE | 2018-10-29 10:09 | PDOC.HOSPP ---
- Subjective Encounter Date: 10/29/18 Encounter Time: 09:30 Subjective: Patient seen and examined for Encephalopathy. Mentation improving. c/o low back pain. No radiation. No B/B incontinence. Family reported rash in groin. No other complaints. No overnight events - Objective Vital Signs & Weight: Vital Signs (12 hours) Temp Pulse Ox 10/29/18 07:35 99 10/29/18 07:13 98.2 F 10/29/18 03:29 98.0 F 10/28/18 23:50 98.5 F Weight Admit Weight 135 lb Weight 129 lb 14.4 oz Most Recent Monitor Data Heart Rate from ECG 83 NIBP 149/92 NIBP BP-Mean 111 Respiration from ECG 12 SpO2 100 I&O: 10/28/18 10/29/18 10/30/18 06:59 06:59 06:59 Intake Total 1927 2124 Balance 1927 2124 Result Diagrams: 10/28/18 06:39 10/29/18 04:12 Additional Labs: Accuchecks 10/29/18 10/28/18 10/28/18 06:44 16:53 05:34 POC Glucose 97 96 95 EKG Reviewed by me: Yes (Tele SR) ROS - Review of Systems ENT: denies: ear pain, ear discharge, nose pain, nose discharge, nose congestion , mouth pain, mouth swelling, throat pain, throat swelling, other Respiratory: denies: cough, dry, shortness of breath, hemoptysis, SOB with excertion, pleuritic pain, sputum, wheezing, other Cardiovascular: denies: chest pain, palpitations, orthopnea, paroxysmal noc. dyspnea, edema, light headedness, other - Medication Medications: Active Medications Generic Name Dose Route Start Last Admin Trade Name Freq PRN Reason Stop Dose Admin Acetaminophen 1,000 mg 10/23/18 17:26 10/28/18 09:07 Tylenol PO 1,000 mg Q6H PRN Administration Moderate to Severe Pain (6-10) Acetaminophen 325 mg 10/24/18 05:14 10/25/18 20:18 Tylenol [place] 325 mg Q4H PRN Administration Headache/Fever or Pain Amlodipine Besylate 5 mg 10/26/18 21:00 10/28/18 21:25 Norvasc PO 5 mg BID NIKOLAS Administration Aspirin 81 mg 10/28/18 09:00 10/28/18 09:07 Ecotrin PO 81 mg DAILY NIKOLAS Administration Carvedilol 12.5 mg 10/21/18 17:00 10/28/18 18:12 Coreg PO Not Given BID-[facility] Cyanocobalamin 1,000 mcg 10/22/18 09:00 10/28/18 09:09 Vitamin B-12 PO 1,000 mcg DAILY NIKOLAS Administration Doxycycline Hyclate 100 mg 10/26/18 21:00 10/28/18 21:22 Vibramycin PO 100 mg BID NIKOLAS Administration Folic Acid 1 mg 10/22/18 09:00 10/28/18 09:09 Folvite PO 1 mg DAILY NIKOLAS Administration Heparin Sodium (Porcine) 5,000 units 10/25/18 09:00 10/28/18 21:25 Heparin SC 5,000 units BID NIKOLAS Administration Hydralazine HCl 10 mg 10/21/18 11:51 10/25/18 06:20 Apresoline SLOW IVP 10 mg Q4H PRN Administration SBP Greater Than 180 Hydralazine HCl 25 mg 10/21/18 15:00 10/28/18 21:25 Apresoline PO 25 mg TID NIKOLAS Administration Dextrose/Sodium Chloride 1,000 mls @ 50 mls/hr 10/27/18 14:15 10/28/18 14:27 D5 0.9% Ns IV 1,000 mls .Q20H NIKOLAS Administration Loratadine 10 mg 10/22/18 09:00 10/28/18 09:09 Claritin PO 10 mg DAILY NIKOLAS Administration Neomycin/Polymyxin/Bacitracin 1 gm 10/24/18 09:00 10/28/18 09:10 Triple Antibiotic TOP 1 gm DAILY NIKOLAS Administration Sodium Chloride 10 ml 10/21/18 11:44 10/25/18 14:20 Flush - Normal Saline IVF 10 ml PRN PRN Administration Saline Flush Tramadol HCl 50 mg 10/23/18 17:26 10/28/18 14:24 Ultram PO 50 mg Q4H PRN Administration Pain 1-5 - Exam NAD Heart: RRR, no rubs Respiratory: CTAB, no rales, no ronchi Gastrointestinal: soft, non-tender, non-distended, normal bowel sounds Extremities: no edema Neurological: CN's grossly intact, normal sensation to touch, no focal deficits Musculoskeletal: normal tone, generalized weakness Psychiatric: normal affect, A&O x 3 Hosp A/P - Plan plan discussed w/ family, PT/OT, DVT proph w/heparin, DVT proph w/SCDs IMPRESSION: 1. Toxic metabolic encephalopathy - probably uremic encephalopathy. improving 2. Low back pain with h/o fall 3. Pneumonia ? Aspiration - on PO Doxy 4. Edwina intertrigo 5. Elevated troponin, suspected to be secondary to type 2 myocardial infarction. 6. Hypertension. 7. DM 2. - on sliding scale 8. Dyslipidemia. 9. Secondary hyperparathyroidism. 10. Anemia of chronic renal insufficiency. 11. Peritoneal dialysis catheter malfunction. - Catheter dced. Started on HD 12. Hyperkalemia/Hyponatremia/Hypokalemia - corrected PLAN: Cont maintenance IVF while on pureed diet Transfer to medical SNF Eval Add Nystatin powder LS XR due to back pain Cont PT/OT Cont other meds as above Hemodialysis per Dr Phil ABEL labs SNF Eval Outpt HD setup pending
[2018-10-29] MEDS: Doxycycline 100 MG CAP PO SCH ×2 (10:48→20:29)
[2018-10-29] MEDS: Cyanocobalamin (Vitamin B-12) 1,000 MCG TAB PO SCH (10:49)
[2018-10-29] MEDS: Triple Antibiotic Oint 1 GM Packet TOP SCH (10:49)
[2018-10-29] MEDS: Acetaminophen 500 MG TAB PO PRN ×2 (10:49→16:26)
[2018-10-29] MEDS: Heparin 5,000 UNITS/ML VIAL SC SCH ×2 (10:50→20:31)
[2018-10-29] MEDS: Folic Acid 1 MG TAB PO SCH (10:50)
[2018-10-29] MEDS: Amlodipine 5 MG TAB PO SCH ×2 (10:50→20:30)
[2018-10-29] MEDS: hydrALAZINE 25 MG TAB PO SCH ×3 (10:50→20:29)
[2018-10-29] MEDS: Aspirin 81 mg Enteric Coated Tablet PO SCH (10:52)
[2018-10-29] MEDS: Carvedilol 6.25 MG TAB PO SCH ×2 (10:52→18:28)
[2018-10-29] MEDS: Loratadine 10 MG TAB PO SCH (10:52)
--- NOTE | 2018-10-29 14:06 | RAD ---
LUMBAR SPINE 3 VIEWS: Date: 10/29/18 HISTORY: Back pain. Comparison made to lumbar films from 2015. FINDINGS: Lumbar vertebra maintain normal height and alignment. Disc spaces are maintained. Minimal degenerativ e spurring is noted. Very mild facet hypertrophy. No evidence of spondylolisthesis. Increased aortic calcification since prior exam. A calcified nodule seen anteriorly overlying the L4 vertebra to the right of midline is again noted a nd was described previously as probable calcified lymph node within the abdomen. IMPRESSION: Mild degenerative changes of the lumbar spine. No acute process or significant change from prior exam . POS: TPC
[2018-10-29] MEDS: Dextrose 5 % And 0.9 % NaCl 1,000 ML IV SCH (18:27)
[2018-10-29] MEDS ORDERED: Calcium Acetate 667 MG CAP PO SCH (19:45)
[2018-10-29] MEDS: Nystatin Powder 15 GM BOT TOP SCH (22:14)
[2018-10-29 22:59] LABS: Phosphorus 3.3 mg/dL (2.3-4.7)
[2018-10-29] MEDS ORDERED: hydrOXYzine 10 MG TAB PO SCH (23:00)
[2018-10-30] MEDS: Dextrose 5 % And 0.9 % NaCl 1,000 ML IV SCH (02:15)
[2018-10-30] MEDS: Acetaminophen 500 MG TAB PO PRN ×2 (03:05→13:57)
[2018-10-30 05:02] LABS: #Eosinphils 0.4 thou/uL (0.0-0.7); #Lymphocytes 1.9 thou/uL (1.20-3.40); #Neutrophils 6.7 thou/uL (1.40-6.50); %Basophils 0.2 % (0.0-1.0); %Eosinophils 3.9 % (0.0-10.0); %Monocytes 9.7 % (0.0-10.0); %Neutrophils 67.1 % (42.0-75.0); Hemoglobin 10.8 g/dL (12.0-16.0); Mean Corpuscular HGB CONC 30.7 g/dL (32.0-36.0); Mean Corpuscular Hemoglobin 25.8 pg (27.0-31.0); Mean Corpuscular Volume 84.2 fL (78.0-98.0); Mean Platelet Volume 7.7 fL (7.4-10.4); Platelet Count 300 thou/uL (130-400); Red Blood Cell (RBC) Count 4.19 mill/uL (4.20-5.40)
--- NOTE | 2018-10-30 09:57 | PRG ---
DATE OF SERVICE: 10/30/2018 SUBJECTIVE: Ms. Devi is a 68-year-old female with ESRD. She was admitted for mental status change secondary to uremic encephalopathy secondary to inadequate peritoneal dialysis done by the patient. She was converted to hemodialysis. Mentation is much improved. Last night complained of some pruritus. We restarted on PhosLo. OBJECTIVE: VITAL SIGNS: Blood pressure of 157/67, heart rate 78, respiratory rate 7, and pulse ox 100%. GENERAL: Awake, alert, comfortable, not in distress. SKIN: Adequate turgor. HEENT: Pinkish conjunctivae, anicteric sclerae. No neck mass. No carotid bruits. No JVD. CHEST: No deformities. LUNGS: Clear breath sounds. HEART: Normal sinus rhythm. No murmur. No gallops. No rubs. ABDOMEN: Globular, soft, nontender. No masses. EXTREMITIES: No edema. No deformities. MEDICATIONS: Medications of October 30, 2018, were reviewed. LABORATORY DATA: Laboratories of October 29, 2018; BUN 13, creatinine 4.02. On October 30, 2018; white count 10, hemoglobin 10.8. ASSESSMENT AND PLAN: 1. Anemia. Restart Epogen 7500 units subcu every week. 2. Uremic encephalopathy, clinically much improved. Continue Friday, Friday, and Friday dialysis. 3. End-stage renal disease. Converted to hemodialysis. We are continuing the Friday, Friday, and Friday dialysis scheduled with this patient. Overall, agree with current management. Job ID: [id number]
--- NOTE | 2018-10-30 10:11 | PDOC.HOSPP ---
- Subjective Encounter Date: 10/30/18 Encounter Time: 10:05 Subjective: Patient seen and examined for Encephalopathy. No CP/SOB/fever/chills. Tolerating HD. No new complaints. No overnight events - Objective Vital Signs & Weight: Vital Signs (12 hours) Temp 10/30/18 03:22 98.9 F 10/29/18 23:09 98.5 F Weight Admit Weight 135 lb Weight 130 lb 9.6 oz Most Recent Monitor Data Heart Rate from ECG 78 NIBP 157/67 NIBP BP-Mean 97 Respiration from ECG 7 SpO2 100 I&O: 10/29/18 10/30/18 10/31/18 06:59 06:59 06:59 Intake Total 2124 2180 Balance 2124 2180 Result Diagrams: 10/30/18 04:37 10/29/18 04:12 Additional Labs: Accuchecks 10/29/18 10/29/18 10/29/18 20:21 16:18 10:08 POC Glucose 112 H 94 110 10/28/18 11:09 POC Glucose 108 Radiology Reviewed by me: Yes (XR LS spine - DJD, no fracture) EKG Reviewed by me: Yes (Tele SR) ROS - Review of Systems Respiratory: denies: cough, dry, shortness of breath, hemoptysis, SOB with excertion, pleuritic pain, sputum, wheezing, other Cardiovascular: denies: chest pain, palpitations, orthopnea, paroxysmal noc. dyspnea, edema, light headedness, other Gastrointestinal: denies: nausea, vomitting, abdominal pain, diarrhea, constipation, melena, hematochezia, other - Medication Medications: Active Medications Generic Name Dose Route Start Last Admin Trade Name Freq PRN Reason Stop Dose Admin Acetaminophen 1,000 mg 10/23/18 17:26 10/30/18 03:05 Tylenol PO 1,000 mg Q6H PRN Administration Moderate to Severe Pain (6-10) Acetaminophen 325 mg 10/24/18 05:14 10/25/18 20:18 Tylenol [place] 325 mg Q4H PRN Administration Headache/Fever or Pain Amlodipine Besylate 5 mg 10/26/18 21:00 10/29/18 20:30 Norvasc PO 5 mg BID NIKOLAS Administration Aspirin 81 mg 10/28/18 09:00 10/29/18 10:52 Ecotrin PO 81 mg DAILY NIKOLAS Administration Carvedilol 12.5 mg 10/21/18 17:00 10/29/18 18:28 Coreg PO Not Given BID-[facility] Cyanocobalamin 1,000 mcg 10/22/18 09:00 10/29/18 10:49 Vitamin B-12 PO 1,000 mcg DAILY NIKOLAS Administration Doxycycline Hyclate 100 mg 10/26/18 21:00 10/29/18 20:29 Vibramycin PO 100 mg BID NIKOLAS Administration Folic Acid 1 mg 10/22/18 09:00 10/29/18 10:50 Folvite PO 1 mg DAILY NIKOLAS Administration Heparin Sodium (Porcine) 5,000 units 10/25/18 09:00 10/29/18 20:31 Heparin SC 5,000 units BID NIKOLAS Administration Hydralazine HCl 10 mg 10/21/18 11:51 10/25/18 06:20 Apresoline SLOW IVP 10 mg Q4H PRN Administration SBP Greater Than 180 Hydralazine HCl 25 mg 10/21/18 15:00 10/29/18 20:29 Apresoline PO 25 mg TID NIKOLAS Administration Dextrose/Sodium Chloride 1,000 mls @ 50 mls/hr 10/27/18 14:15 10/30/18 02:15 D5 0.9% Ns IV Not Given .Q20H NIKOLAS Loratadine 10 mg 10/22/18 09:00 10/29/18 10:52 Claritin PO 10 mg DAILY NIKOLAS Administration Neomycin/Polymyxin/Bacitracin 1 gm 10/24/18 09:00 10/29/18 10:49 Triple Antibiotic TOP 1 gm DAILY NIKOLAS Administration Nystatin 0 gm 10/29/18 21:00 10/29/18 22:14 Mycostatin Powder TOP 1 applic Q12HR NIKOLAS Administration Sodium Chloride 10 ml 10/21/18 11:44 10/25/18 14:20 Flush - Normal Saline IVF 10 ml PRN PRN Administration Saline Flush - Exam NAD Neck: supple, no JVD Heart: RRR, no gallops, no rubs Respiratory: CTAB, no rales Gastrointestinal: soft, non-tender, non-distended, normal bowel sounds Extremities: no cyanosis, no edema Neurological: no focal deficits Psychiatric: normal affect, A&O x 3 Hosp A/P - Plan PT/OT, out of bed/ambulate IMPRESSION: 1. Toxic metabolic encephalopathy/Uremic encephalopathy. improved 2. Low back pain with h/o fall - XR negative 3. Pneumonia ? Aspiration - on PO Doxycycline 4. Edwina intertrigo - on Nystatin 5. Elevated troponin, suspected to be secondary to type 2 myocardial infarction. 6. Hypertension. 7. DM 2. - on sliding scale 8. Dyslipidemia. 9. Secondary hyperparathyroidism. 10. Anemia of chronic renal insufficiency. 11. Peritoneal dialysis catheter malfunction. - Catheter dced. Started on HD 12. Hyperkalemia/Hyponatremia/Hypokalemia - corrected PLAN: DC IVF Await Medical bed Await SNF placement - Stable for dc Outpt HD setup pending Cont PT/OT Cont other meds as above
[2018-10-30] MEDS: Calcium Acetate 667 MG CAP PO SCH ×3 (11:00→17:12)
[2018-10-30] MEDS ORDERED: Heparin 1,000 UNITS/ML VIAL ONE (11:11)
[2018-10-30] MEDS: Carvedilol 6.25 MG TAB PO SCH ×2 (11:32→17:12)
[2018-10-30] MEDS: Amlodipine 5 MG TAB PO SCH ×2 (11:38→21:16)
[2018-10-30] MEDS: Doxycycline 100 MG CAP PO SCH ×2 (11:39→21:20)
[2018-10-30] MEDS: Aspirin 81 mg Enteric Coated Tablet PO SCH (11:39)
[2018-10-30] MEDS: hydrALAZINE 25 MG TAB PO SCH ×3 (11:39→21:17)
[2018-10-30] MEDS: EPOETIN ALFA-EPBX (ESRD) 4,000 UNIT/ML VIAL SC SCH (11:40)
[2018-10-30] MEDS: Folic Acid 1 MG TAB PO SCH (11:40)
[2018-10-30] MEDS: Heparin 5,000 UNITS/ML VIAL SC SCH ×2 (11:40→21:16)
[2018-10-30] MEDS: Triple Antibiotic Oint 1 GM Packet TOP SCH (11:40)
[2018-10-30] MEDS: Cyanocobalamin (Vitamin B-12) 1,000 MCG TAB PO SCH (11:40)
[2018-10-30] MEDS: Loratadine 10 MG TAB PO SCH (11:40)
[2018-10-30] MEDS: Nystatin Powder 15 GM BOT TOP SCH ×2 (11:40→21:20)
[2018-10-31] MEDS ORDERED: diphenhydrAMINE 25 MG CAP PO PRN (02:01)
[2018-10-31] MEDS ORDERED: Ibuprofen 200 MG TAB PO SCH (06:45)
[2018-10-31] MEDS: Calcium Acetate 667 MG CAP PO SCH ×4 (08:39→19:16)
[2018-10-31] MEDS: Folic Acid 1 MG TAB PO SCH (08:40)
[2018-10-31] MEDS: Carvedilol 6.25 MG TAB PO SCH ×2 (08:40→16:25)
[2018-10-31] MEDS: Cyanocobalamin (Vitamin B-12) 1,000 MCG TAB PO SCH (08:40)
[2018-10-31] MEDS: Aspirin 81 mg Enteric Coated Tablet PO SCH (08:40)
[2018-10-31] MEDS: hydrALAZINE 25 MG TAB PO SCH ×3 (08:40→20:42)
[2018-10-31] MEDS: Amlodipine 5 MG TAB PO SCH ×2 (08:40→20:46)
[2018-10-31] MEDS: Loratadine 10 MG TAB PO SCH (08:41)
[2018-10-31] MEDS ORDERED: Naproxen 500 MG TAB PO PRN ×2 (08:59→09:05)
[2018-10-31] MEDS: Nystatin Powder 15 GM BOT TOP SCH ×2 (09:00→20:48)
--- NOTE | 2018-10-31 10:16 | PDOC.HOSPP ---
- Subjective Encounter Date: 10/31/18 Encounter Time: 09:00 Subjective: Patient seen and examined for Encephalopathy - Mentation improved. Sitting on chair. No new complaints. Overnight events noted. - Objective Vital Signs & Weight: Vital Signs (12 hours) Temp Pulse Resp BP Pulse Ox 10/31/18 07:54 98.8 F 75 16 162/72 H 94 L 10/31/18 00:00 98.1 F 88 16 154/68 H 98 Weight Admit Weight 135 lb Weight 4.55 oz Most Recent Monitor Data Heart Rate from ECG 72 NIBP 141/66 NIBP BP-Mean 91 Respiration from ECG 19 SpO2 100 I&O: 10/30/18 10/31/18 11/01/18 06:59 06:59 06:59 Intake Total 2180 1580 Output Total 1775 Balance 2180 -195 Result Diagrams: 10/30/18 04:37 10/29/18 04:12 Additional Labs: Accuchecks 10/31/18 10/30/18 10/30/18 05:31 21:20 16:13 POC Glucose 87 113 H 109 10/30/18 10/30/18 11:41 07:08 POC Glucose 100 100 ROS - Review of Systems Respiratory: denies: cough, dry, shortness of breath, hemoptysis, SOB with excertion, pleuritic pain, sputum, wheezing, other Cardiovascular: denies: chest pain, palpitations, orthopnea, paroxysmal noc. dyspnea, edema, light headedness, other - Medication Medications: Active Medications Generic Name Dose Route Start Last Admin Trade Name Freq PRN Reason Stop Dose Admin Acetaminophen 1,000 mg 10/23/18 17:26 10/30/18 13:57 Tylenol PO 1,000 mg Q6H PRN Administration Moderate to Severe Pain (6-10) Acetaminophen 325 mg 10/24/18 05:14 10/25/18 20:18 Tylenol [place] 325 mg Q4H PRN Administration Headache/Fever or Pain Amlodipine Besylate 5 mg 10/26/18 21:00 10/31/18 08:40 Norvasc PO 5 mg BID NIKOLAS Administration Aspirin 81 mg 10/28/18 09:00 10/31/18 08:40 Ecotrin PO 81 mg DAILY NIKOLAS Administration Calcium Acetate 1,334 mg 10/30/18 08:00 10/31/18 08:39 Phoslo PO 1,334 mg TID-WM NIKOLAS Administration Carvedilol 12.5 mg 10/21/18 17:00 10/31/18 08:40 Coreg PO 12.5 mg BID-WM NIKOLAS Administration Cyanocobalamin 1,000 mcg 10/22/18 09:00 10/31/18 08:40 Vitamin B-12 PO 1,000 mcg DAILY NIKOLAS Administration Doxycycline Hyclate 100 mg 10/26/18 21:00 10/30/18 21:20 Vibramycin PO 100 mg BID NIKOLAS Administration Epoetin Edson-epbx 7,500 unit 10/30/18 09:00 10/30/18 11:40 Retacrit SC 7,500 unit Q7D NIKOLAS Administration Folic Acid 1 mg 10/22/18 09:00 10/31/18 08:40 Folvite PO 1 mg DAILY NIKOLAS Administration Heparin Sodium (Porcine) 5,000 units 10/25/18 09:00 10/30/18 21:16 Heparin SC 5,000 units BID NIKOLAS Administration Hydralazine HCl 10 mg 10/21/18 11:51 10/25/18 06:20 Apresoline SLOW IVP 10 mg Q4H PRN Administration SBP Greater Than 180 Hydralazine HCl 25 mg 10/21/18 15:00 10/31/18 08:40 Apresoline PO 25 mg TID NIKOLAS Administration Neomycin/Polymyxin/Bacitracin 1 gm 10/24/18 09:00 10/30/18 11:40 Triple Antibiotic TOP 1 gm DAILY NIKOLAS Administration Nystatin 0 gm 10/29/18 21:00 10/30/18 21:20 Mycostatin Powder TOP 1 applic Q12HR NIKOLAS Administration Sodium Chloride 10 ml 10/21/18 11:44 10/25/18 14:20 Flush - Normal Saline IVF 10 ml PRN PRN Administration Saline Flush - Exam NAD Neck: supple, no JVD Heart: RRR, no gallops Respiratory: CTAB, no rales Gastrointestinal: soft, non-tender, normal bowel sounds Extremities: no edema Neurological: no focal deficits Psychiatric: normal affect, A&O x 3 Hosp A/P - Plan IMPRESSION: 1. Toxic metabolic encephalopathy/Uremic encephalopathy. Mentation improved 2. Low back pain with h/o fall. No fractures 3. Pneumonia ? Aspiration - on PO Doxycycline 4. Edwina intertrigo - on Nystatin 5. Elevated troponin, suspected to be secondary to type 2 myocardial infarction. 6. Hypertension. 7. DM 2. - on sliding scale 8. Dyslipidemia. 9. Secondary hyperparathyroidism. 10. Anemia of chronic renal insufficiency. 11. Peritoneal dialysis catheter malfunction. - Catheter dced. Started on HD 12. Hyperkalemia/Hyponatremia/Hypokalemia - corrected PLAN: Await SNF placement and outpt dialysis setup Patient is stable for discharge PT/OT Add low dose Naproxen per patient/family req - Patient states that Tylenol and Benadryl causes insomnia Add PPI while on NSAIDs Cont Amlodipine (Daughter requesting to continue Amlodipine at dc - instead of Procardia XL) Cont other meds as above
[2018-10-31] MEDS: Heparin 5,000 UNITS/ML VIAL SC SCH ×2 (11:54→20:45)
[2018-10-31] MEDS: Doxycycline 100 MG CAP PO SCH (13:59)
[2018-10-31] MEDS: Triple Antibiotic Oint 1 GM Packet TOP SCH (14:00)
[2018-10-31] MEDS ORDERED: Loratadine 10 MG TAB PO PRN (15:32)
[2018-10-31] MEDS: hydrOXYzine 10 MG TAB PO PRN (16:25)
[2018-10-31] MEDS: Loperamide HCl 2 MG CAP PO PRN (16:25)
[2018-10-31] MEDS: Melatonin 3 MG TAB PO SCH (20:46)
[2018-10-31] MEDS: Saccharomyces boulardii 250 MG CAP PO SCH (20:47)
[2018-11-01] MEDS: traZODone HCl 50 MG TAB PO PRN ×2 (00:03→20:22)
[2018-11-01] MEDS ORDERED: hydrALAZINE 25 MG TAB PO SCH (00:15)
[2018-11-01] MEDS ORDERED: cloNIDine 0.1 MG TAB PO PRN (01:58)
[2018-11-01] MEDS: Carvedilol 6.25 MG TAB PO SCH ×2 (08:19→20:18)
[2018-11-01] MEDS: Amlodipine 5 MG TAB PO SCH ×2 (08:19→20:19)
[2018-11-01] MEDS: hydrALAZINE 25 MG TAB PO SCH ×3 (08:19→20:20)
[2018-11-01] MEDS: Heparin 5,000 UNITS/ML VIAL SC SCH ×2 (08:20→21:20)
[2018-11-01] MEDS: Calcium Acetate 667 MG CAP PO SCH ×3 (09:02→20:21)
[2018-11-01] MEDS: Aspirin 81 mg Enteric Coated Tablet PO SCH (09:02)
[2018-11-01] MEDS: Folic Acid 1 MG TAB PO SCH (09:03)
[2018-11-01] MEDS: Cyanocobalamin (Vitamin B-12) 1,000 MCG TAB PO SCH (09:03)
[2018-11-01] MEDS ORDERED: Losartan 25 MG TAB PO SCH (10:00)
--- NOTE | 2018-11-01 10:23 | PRG ---
DATE OF SERVICE: 11/01/2018 SUBJECTIVE: Ms. Devi is a 68-year-old female with known history of ESRD and currently followed by the [facility] for her maintenance hemodialysis. She was converted from peritoneal dialysis to hemodialysis due to the patient's inability now to perform peritoneal dialysis. She was admitted for confusion and our feeling at that time, this was secondary to uremic encephalopathy due to her noncompliance with her PD regimen. In the last several days, her mentation is much improved with hemodialysis. No new complaints except for some occasional back pain. The patient does complain of occasional itchiness. OBJECTIVE: VITAL SIGNS: Blood pressure 191/84, heart rate 78, respiratory rate 18, temperature 98.9, and pulse ox 98%. GENERAL: The patient is noted to be awake, alert, sitting comfortable, and not in overt distress. SKIN: Adequate turgor. HEENT: She has a pinkish conjunctivae. Anicteric sclerae. NECK: No neck mass. No carotid bruits. No JVD. CHEST: No deformities. LUNGS: Clear breath sounds. HEART: Normal sinus rhythm. No murmur. No gallops. No rubs. ABDOMEN: Globular, soft, and nontender. No masses. EXTREMITIES: No edema. No deformities. MEDICATIONS: Medications of November 01, 2018, reviewed. LABORATORY DATA: Laboratories of October 31, 2018, glucose 108. October 29, 2018; sodium 136, potassium 3.6, chloride 100, carbon dioxide 26, BUN 13, creatinine 4.02, calcium 8.2, and phosphorus 3.3. White count 10 and hemoglobin 10.8. ASSESSMENT AND PLAN: 1. End-stage renal disease, stable. We will continue current Friday, Friday, and Friday hemodialysis regimen. Again, fluid removal only as tolerated. Tolerating said treatment. 2. Metabolic encephalopathy/uremic encephalopathy, much improved with hemodialysis. 3. Hypertension. We will add losartan 25 mg tablet q.a.m. 4. Anemia, on weekly Epogen. Awaiting outpatient dialysis placement. Job ID: [id number]
[2018-11-01] MEDS: hydrOXYzine 10 MG TAB PO PRN ×2 (13:17→20:25)
[2018-11-01] MEDS: Acetaminophen 500 MG TAB PO PRN (14:57)
[2018-11-01] MEDS ORDERED: Senokot 8.6 MG TAB PO PRN (15:24)
--- NOTE | 2018-11-01 15:28 | PDOC.HOSPP ---
- Subjective Encounter Date: 11/01/18 Encounter Time: 15:00 Subjective: Patient seen and examined for Encephalopathy. No fever/chills/CP. No new complaints. No overnight events - Objective Vital Signs & Weight: Vital Signs (12 hours) Temp Pulse Resp BP BP Pulse Ox 11/01/18 12:41 98.8 F 63 16 156/67 H 95 11/01/18 08:08 98.9 F 74 18 191/84 H 98 11/01/18 03:40 98.6 F 68 16 165/72 H 93 L Weight Admit Weight 135 lb Weight 131 lb Most Recent Monitor Data Heart Rate from ECG 72 NIBP 141/66 NIBP BP-Mean 91 Respiration from ECG 19 SpO2 100 I&O: 10/31/18 11/01/18 11/02/18 06:59 06:59 06:59 Intake Total 1580 120 Output Total 1775 Balance -195 120 Result Diagrams: 10/30/18 04:37 10/29/18 04:12 Additional Labs: Accuchecks 10/31/18 16:45 POC Glucose 108 ROS - Review of Systems Cardiovascular: denies: chest pain, palpitations, orthopnea, paroxysmal noc. dyspnea, edema, light headedness, other Gastrointestinal: denies: nausea, vomitting, abdominal pain, diarrhea, constipation, melena, hematochezia, other - Medication Medications: Active Medications Generic Name Dose Route Start Last Admin Trade Name Freq PRN Reason Stop Dose Admin Acetaminophen 1,000 mg 10/23/18 17:26 11/01/18 14:57 Tylenol PO 1,000 mg Q6H PRN Administration Moderate to Severe Pain (6-10) Acetaminophen 325 mg 10/24/18 05:14 10/25/18 20:18 Tylenol ND 325 mg Q4H PRN Administration Headache/Fever or Pain Amlodipine Besylate 5 mg 10/26/18 21:00 11/01/18 08:19 Norvasc PO 5 mg BID NIKOLAS Administration Aspirin 81 mg 10/28/18 09:00 11/01/18 09:02 Ecotrin PO 81 mg DAILY NIKOLAS Administration Calcium Acetate 1,334 mg 10/30/18 08:00 11/01/18 13:16 Phoslo PO 1,334 mg TID-WM NIKOLAS Administration Carvedilol 12.5 mg 10/21/18 17:00 11/01/18 08:19 Coreg PO 12.5 mg BID-WM NIKOLAS Administration Clonidine 0.1 mg 11/01/18 01:58 11/01/18 02:05 Catapres PO 0.1 mg Q4H PRN Administration SBP > 180 Cyanocobalamin 1,000 mcg 10/22/18 09:00 11/01/18 09:03 Vitamin B-12 PO 1,000 mcg DAILY NIKOLAS Administration Epoetin Edson-epbx 7,500 unit 10/30/18 09:00 10/30/18 11:40 Retacrit SC 7,500 unit Q7D NIKOLAS Administration Folic Acid 1 mg 10/22/18 09:00 11/01/18 09:03 Folvite PO 1 mg DAILY NIKOLAS Administration Heparin Sodium (Porcine) 5,000 units 10/25/18 09:00 11/01/18 08:20 Heparin SC 5,000 units BID NIKOLAS Administration Hydralazine HCl 10 mg 10/21/18 11:51 10/25/18 06:20 Apresoline SLOW IVP 10 mg Q4H PRN Administration SBP Greater Than 180 Hydralazine HCl 25 mg 10/21/18 15:00 11/01/18 08:19 Apresoline PO 25 mg TID NIKOLAS Administration Hydroxyzine HCl 10 mg 10/31/18 15:41 11/01/18 13:17 Atarax PO 10 mg TIDPRN PRN Administration Itching Loperamide HCl 2 mg 10/31/18 15:33 10/31/18 16:25 Imodium PO 2 mg PRN PRN Administration Diarrhea/Loose Stools Melatonin 3 mg 10/31/18 21:00 10/31/18 20:46 Melatonin PO 3 mg HS NIKOLAS Administration Naproxen 250 mg 10/31/18 09:05 11/01/18 10:03 Naprosyn PO 11/02/18 09:06 250 mg BID PRN Administration Pain Neomycin/Polymyxin/Bacitracin 1 gm 10/24/18 09:00 10/31/18 14:00 Triple Antibiotic TOP 1 gm DAILY NIKOLAS Administration Nystatin 0 gm 10/29/18 21:00 10/31/18 20:48 Mycostatin Powder TOP 1 applic Q12HR NIKOLAS Administration Pantoprazole Sodium 40 mg 11/01/18 09:00 11/01/18 09:02 Protonix PO 40 mg DAILY NIKOLAS Administration Saccharomyces Boulardii 250 mg 10/31/18 21:00 10/31/18 20:47 Florastor PO 250 mg HS NIKOLAS Administration Sodium Chloride 10 ml 10/21/18 11:44 10/25/18 14:20 Flush - Normal Saline IVF 10 ml PRN PRN Administration Saline Flush Trazodone HCl 50 mg 10/31/18 23:36 11/01/18 00:03 Desyrel PO 50 mg HSPRN PRN Administration Insomnia - Exam NAD Neck: supple, no JVD Heart: RRR, no rubs Respiratory: CTAB, no rales Gastrointestinal: soft, non-tender, normal bowel sounds Extremities: no edema Hosp A/P - Plan plan discussed w/ family, PT/OT, DVT proph w/heparin, DVT proph w/SCDs IMPRESSION: 1. Toxic metabolic encephalopathy/Uremic encephalopathy. Mentation improved 2. Hypertension. 3. Pneumonia ? Aspiration - Completed Atbx 4. Edwina intertrigo - on Nystatin 5. Elevated troponin, suspected to be secondary to type 2 myocardial infarction. 6. Low back pain with h/o fall. No fractures 7. DM 2. - on sliding scale 8. Dyslipidemia. 9. Secondary hyperparathyroidism. 10. Anemia of chronic renal insufficiency. 11. Peritoneal dialysis catheter malfunction. - Catheter dced. Started on HD 12. Hyperkalemia/Hyponatremia/Hypokalemia - corrected PLAN: Losartan started Cont Amlodipine (Daughter requesting to continue Amlodipine at dc - instead of Procardia XL) Cont other meds as above Await SNF placement and outpt dialysis setup
[2018-11-01] MEDS: Triple Antibiotic Oint 1 GM Packet TOP SCH (16:55)
[2018-11-01] MEDS: Nystatin Powder 15 GM BOT TOP SCH ×2 (17:00→20:22)
[2018-11-01] MEDS: Melatonin 3 MG TAB PO SCH (20:20)
[2018-11-01] MEDS: Saccharomyces boulardii 250 MG CAP PO SCH (20:21)
[2018-11-02 06:25] LABS: #Basophils 0.1 thou/uL (0.0-0.2); #Eosinphils 0.3 thou/uL (0.0-0.7); #Lymphocytes 1.9 thou/uL (1.20-3.40); #Monocytes 0.9 thou/uL (0.11-0.59); #Neutrophils 5.4 thou/uL (1.40-6.50); %Basophils 0.9 % (0.0-1.0); %Eosinophils 3.7 % (0.0-10.0); %Lymphocytes 22.1 % (21.0-51.0); %Monocytes 10.2 % (0.0-10.0); %Neutrophils 63.1 % (42.0-75.0); Hemoglobin 10.4 g/dL (12.0-16.0); Mean Corpuscular HGB CONC 30.2 g/dL (32.0-36.0); Mean Corpuscular Hemoglobin 24.8 pg (27.0-31.0); Mean Corpuscular Volume 82.1 fL (78.0-98.0); Mean Platelet Volume 7.3 fL (7.4-10.4); Platelet Count 321 thou/uL (130-400); White Blood Cell (WBC) Count 8.6 thou/uL (4.8-10.8)
[2018-11-02 06:45] LABS: Anion Gap 15 mmol/L (10-20); BUN (Urea Nitrogen) 42 mg/dL (9.8-20.1); Calc. Creatinine Clearance 6 mL/min (70-130); Calcium 8.9 mg/dL (7.8-10.44); Carbon Dioxide 25 mmol/L (23-31); Chloride 96 mmol/L (98-107); Estimated GFR-MDRD 4; Glucose 87 mg/dL (80-115); Potassium 4.6 mmol/L (3.5-5.1); Sodium 131 mmol/L (136-145)
[2018-11-02] MEDS: Calcium Acetate 667 MG CAP PO SCH ×3 (08:00→18:59)
[2018-11-02] MEDS: Triple Antibiotic Oint 1 GM Packet TOP SCH ×2 (09:00→19:01)
[2018-11-02] MEDS: Nystatin Powder 15 GM BOT TOP SCH ×2 (09:00→21:17)
[2018-11-02] MEDS: Heparin 5,000 UNITS/ML VIAL SC SCH ×2 (09:00→21:14)
--- NOTE | 2018-11-02 09:02 | PRG ---
DATE OF SERVICE: 11/02/2018 SUBJECTIVE: Ms. Devi is a 68-year-old female followed up by the [facility] for her ESRD. She has been converted to maintenance hemodialysis from peritoneal dialysis. She is undergoing dialysis today. She is tolerating said treatment. No new complaints. OBJECTIVE: VITAL SIGNS: Blood pressure 183/79, heart rate 66, respiratory rate 12, temperature 98.2, and pulse ox 95% on room air. GENERAL: Awake, alert, comfortable, not in distress. SKIN: Adequate turgor. HEENT: She has slightly pale conjunctivae. Anicteric sclerae. NECK: No neck mass. No carotid bruits. No JVD. CHEST: No deformities. LUNGS: Clear breath sounds. HEART: Normal sinus rhythm. No murmur. No gallops. No rubs. ABDOMEN: Globular, soft, nontender. No masses. EXTREMITIES: No edema. No deformities. MEDICATIONS: Medications of November 02, 2018, were reviewed. LABORATORY DATA: Laboratories of November 02, 2018; white count 8.6, hemoglobin 10.4. Sodium 131, potassium 4.6, chloride 96, carbon dioxide 25, BUN 42, creatinine 9.08, glucose 87, calcium 8.9. ASSESSMENT AND PLAN: 1. Borderline anemia-on weekly Epogen. 2. End-stage renal disease, stable, tolerating current maintenance hemodialysis. Fluid removal only as tolerated. 3. Hypertension. Continue current BP medications. Recently losartan has been added. Awaiting outpatient dialysis placement. Job ID: [id number]
[2018-11-02 09:41] LABS: HBSAg Index 1.05 S/CO (0-0.99)
[2018-11-02 09:59] LABS: Hep B Surf Ag Reflx Confirmation S/CO (NonReactive)
[2018-11-02 11:56] LABS: HBSAg Index 0.35 S/CO (0-0.99); Hep B Surf Ag Non-Reactive S/CO (NonReactive)
[2018-11-02] MEDS: Carvedilol 6.25 MG TAB PO SCH ×2 (12:08→18:59)
[2018-11-02] MEDS: Amlodipine 5 MG TAB PO SCH ×2 (12:10→21:16)
[2018-11-02] MEDS: Losartan 25 MG TAB PO SCH (12:10)
[2018-11-02] MEDS: Aspirin 81 mg Enteric Coated Tablet PO SCH (12:11)
[2018-11-02] MEDS: hydrOXYzine 10 MG TAB PO PRN ×2 (12:11→19:52)
[2018-11-02] MEDS: Cyanocobalamin (Vitamin B-12) 1,000 MCG TAB PO SCH (12:12)
[2018-11-02] MEDS: hydrALAZINE 25 MG TAB PO SCH ×3 (12:12→21:16)
[2018-11-02] MEDS: Folic Acid 1 MG TAB PO SCH (12:12)
[2018-11-02] MEDS ORDERED: Heparin 10,000 UNITS/1 ML VIAL ONE (15:00)
--- NOTE | 2018-11-02 17:49 | PDOC.HOSPP ---
- Subjective Encounter Date: 11/02/18 (f/u ESRD) Encounter Time: 17:46 Subjective: Pt c/o difficulty wiht sleeping last night. c/o itching all over. Denies any cp /n/v/abd pain or other concerns. - Objective Vital Signs & Weight: Vital Signs (12 hours) Temp Pulse Resp BP Pulse Ox 11/02/18 17:02 98.3 F 70 18 164/69 H 99 11/02/18 13:00 98.2 F 75 146/66 H 100 11/02/18 08:11 98.2 F 66 18 183/79 H 95 Weight Admit Weight 135 lb Weight 133 lb 9 oz Most Recent Monitor Data Heart Rate from ECG 72 NIBP 141/66 NIBP BP-Mean 91 Respiration from ECG 19 SpO2 100 I&O: 11/01/18 11/02/18 11/03/18 06:59 06:59 06:59 Intake Total 120 100 Balance 120 100 Result Diagrams: 11/02/18 05:35 11/02/18 05:35 ROS - Medication Medications: Active Medications Generic Name Dose Route Start Last Admin Trade Name Freq PRN Reason Stop Dose Admin Acetaminophen 1,000 mg 10/23/18 17:26 11/01/18 14:57 Tylenol PO 1,000 mg Q6H PRN Administration Moderate to Severe Pain (6-10) Acetaminophen 325 mg 10/24/18 05:14 10/25/18 20:18 Tylenol CA 325 mg Q4H PRN Administration Headache/Fever or Pain Amlodipine Besylate 5 mg 10/26/18 21:00 11/02/18 12:10 Norvasc PO 5 mg BID NIKOLAS Administration Aspirin 81 mg 10/28/18 09:00 11/02/18 12:11 Ecotrin PO 81 mg DAILY NIKOLAS Administration Calcium Acetate 1,334 mg 10/30/18 08:00 11/02/18 12:10 Phoslo PO 1,334 mg TID-WM NIKOLAS Administration Carvedilol 12.5 mg 10/21/18 17:00 11/02/18 12:08 Coreg PO 12.5 mg BID-WM NIKOLAS Administration Clonidine 0.1 mg 11/01/18 01:58 11/01/18 02:05 Catapres PO 0.1 mg Q4H PRN Administration SBP > 180 Cyanocobalamin 1,000 mcg 10/22/18 09:00 11/02/18 12:12 Vitamin B-12 PO 1,000 mcg DAILY NIKOLAS Administration Epoetin Edson-epbx 7,500 unit 10/30/18 09:00 10/30/18 11:40 Retacrit SC 7,500 unit Q7D NIKOLAS Administration Folic Acid 1 mg 10/22/18 09:00 11/02/18 12:12 Folvite PO 1 mg DAILY NIKOLAS Administration Heparin Sodium (Porcine) 5,000 units 10/25/18 09:00 11/02/18 09:00 Heparin SC Not Given BID NIKOLAS Hydralazine HCl 10 mg 10/21/18 11:51 10/25/18 06:20 Apresoline SLOW IVP 10 mg Q4H PRN Administration SBP Greater Than 180 Hydralazine HCl 25 mg 10/21/18 15:00 11/02/18 17:33 Apresoline PO 25 mg TID NIKOLAS Administration Hydroxyzine HCl 10 mg 10/31/18 15:41 11/02/18 12:11 Atarax PO 10 mg TIDPRN PRN Administration Itching Loperamide HCl 2 mg 10/31/18 15:33 10/31/18 16:25 Imodium PO 2 mg PRN PRN Administration Diarrhea/Loose Stools Losartan Potassium 25 mg 11/02/18 09:00 11/02/18 12:10 Cozaar PO 25 mg DAILY NIKOLAS Administration Melatonin 3 mg 10/31/18 21:00 11/01/18 20:20 Melatonin PO 3 mg HS NIKOLAS Administration Neomycin/Polymyxin/Bacitracin 1 gm 10/24/18 09:00 11/01/18 16:55 Triple Antibiotic TOP 1 gm DAILY NIKOLAS Administration Nystatin 0 gm 10/29/18 21:00 11/02/18 09:00 Mycostatin Powder TOP Not Given Q12HR NIKOLAS Saccharomyces Boulardii 250 mg 10/31/18 21:00 11/01/18 20:21 Florastor PO 250 mg HS NIKOLAS Administration Sodium Chloride 10 ml 10/21/18 11:44 10/25/18 14:20 Flush - Normal Saline IVF 10 ml PRN PRN Administration Saline Flush Trazodone HCl 50 mg 10/31/18 23:36 11/01/18 20:22 Desyrel PO 50 mg HSPRN PRN Administration Insomnia - Exam NAD Heart: RRR, no murmur Respiratory: CTAB, no wheezes, no rales, no ronchi Gastrointestinal: soft, non-tender, non-distended, normal bowel sounds Extremities: no cyanosis, no clubbing, no edema Skin - other findings: generally dry. Areas of excoriation secondary to itching Hosp A/P (1) Hypertension Code(s): I10 - ESSENTIAL (PRIMARY) HYPERTENSION Status: Chronic (2) ESRD (end stage renal disease) Code(s): N18.6 - END STAGE RENAL DISEASE Status: Chronic (3) Elevated troponin Code(s): R74.8 - ABNORMAL LEVELS OF OTHER SERUM ENZYMES Status: Acute (4) Encephalopathy acute Code(s): G93.40 - ENCEPHALOPATHY, UNSPECIFIED Status: Resolved (5) Secondary hyperparathyroidism of renal origin Code(s): N25.81 - SECONDARY HYPERPARATHYROIDISM OF RENAL ORIGIN Status: Chronic - Plan Plan: 1. Appreciate Nephrology consult - now on HD and awaiting outpatient arrangement 2. BP's improved after dialysis - continue to titrate 3. Continue PT/OT and planning for SNF as transition to home dvt prophy - heparin gi prophy - not indicated code status full reviewed plan of care with patient through hospital interpretor system, no questions or further needs at end of eval
[2018-11-02] MEDS ORDERED: Temazepam 15 MG CAP PO SCH (20:45)
[2018-11-02] MEDS: Melatonin 3 MG TAB PO SCH (21:15)
[2018-11-02] MEDS: Saccharomyces boulardii 250 MG CAP PO SCH (21:15)
[2018-11-03] MEDS: Acetaminophen 500 MG TAB PO PRN ×2 (06:29→15:32)
[2018-11-03] MEDS: Amlodipine 5 MG TAB PO SCH ×2 (08:21→20:14)
[2018-11-03] MEDS: Calcium Acetate 667 MG CAP PO SCH ×3 (08:21→16:54)
[2018-11-03] MEDS: Folic Acid 1 MG TAB PO SCH (08:21)
[2018-11-03] MEDS: Losartan 25 MG TAB PO SCH (08:21)
[2018-11-03] MEDS: Aspirin 81 mg Enteric Coated Tablet PO SCH (08:21)
[2018-11-03] MEDS: Famotidine 20 MG TAB PO SCH (08:21)
[2018-11-03] MEDS: Triple Antibiotic Oint 1 GM Packet TOP SCH (08:22)
[2018-11-03] MEDS: Cyanocobalamin (Vitamin B-12) 1,000 MCG TAB PO SCH (08:22)
[2018-11-03] MEDS: Carvedilol 6.25 MG TAB PO SCH ×2 (08:22→16:54)
[2018-11-03] MEDS: hydrALAZINE 25 MG TAB PO SCH ×4 (08:22→20:14)
[2018-11-03] MEDS: Nystatin Powder 15 GM BOT TOP SCH ×2 (08:23→20:15)
--- NOTE | 2018-11-03 08:27 | PRG ---
DATE OF SERVICE: 11/03/2018 SUBJECTIVE: Ms. Devi is a 68-year-old female with ESRD and followed up by the [facility]al Service for maintenance hemodialysis. She underwent dialysis yesterday without any difficulty. She tolerated said treatment. This morning, no new complaints. Please note, she was initially admitted for mental status change secondary to uremic encephalopathy. This was reflection of her inadequate peritoneal dialysis, which the patient was not doing. She is now converted to maintenance hemodialysis. No complaints of chest pain or shortness of breath. OBJECTIVE: VITAL SIGNS: Blood pressure 177/77, heart rate 72, respiratory rate 16, temperature 98.1 and pulse ox 94%. GENERAL: The patient is awake, alert, comfortable, not in distress. SKIN: Adequate turgor. HEENT: She has a pinkish conjunctivae. Anicteric sclerae. NECK: No neck mass. No carotid bruits. No JVD. CHEST: No deformities. LUNGS: Clear breath sounds. HEART: Normal sinus rhythm. No murmur. No gallops. No rubs. ABDOMEN: Globular, soft, nontender. No masses. EXTREMITIES: No edema. No deformities. MEDICATIONS: Medications of November 03, 2018, reviewed. LABORATORY STUDIES: November 02, 2018; white count 8.6, hemoglobin 10.4. Sodium 131, potassium 4.6, chloride 96, carbon dioxide 25, BUN 42, creatinine 9.08, glucose 87, and calcium 8.9. ASSESSMENT AND PLAN: 1. End-stage renal disease, stable. We will continue current 3 times a week hemodialysis. She is tolerating said treatment. No changes will be made with the current dialysis regimen. 2. Borderline anemia, on weekly Epogen. 3. Uremic encephalopathy, resolved with hemodialysis. 4. Hypertension, continue current BP medications. We are awaiting group home facility placement. Job ID: [id number]
[2018-11-03] MEDS: Heparin 5,000 UNITS/ML VIAL SC SCH ×3 (08:32→20:15)
--- NOTE | 2018-11-03 10:40 | PDOC.HOSPP ---
- Subjective Encounter Date: 11/03/18 (f/u ESRD) Encounter Time: 10:38 Subjective: Pt reports the medication last night helped her sleep for a while - states it is better than prior nights. She reports waking at 4 am with headache and neck pain that resolved with pain medication. She denies any pain now/cp/sob/n/v - Objective Vital Signs & Weight: Vital Signs (12 hours) Temp Pulse Resp BP BP BP Pulse Ox 11/03/18 08:22 68 164/70 H 11/03/18 08:21 68 11/03/18 08:00 98 F 68 16 164/70 H 94 L 11/03/18 04:00 98.1 F 72 16 177/77 H 94 L 11/03/18 00:00 98.3 F 71 16 160/72 H 94 L Weight Admit Weight 135 lb Weight 123 lb 9 oz Most Recent Monitor Data Heart Rate from ECG 72 NIBP 141/66 NIBP BP-Mean 91 Respiration from ECG 19 SpO2 100 I&O: 11/02/18 11/03/18 11/04/18 06:59 06:59 06:59 Intake Total 100 220 Balance 100 220 Result Diagrams: 11/02/18 05:35 11/02/18 05:35 Additional Labs: Accuchecks 11/02/18 20:16 POC Glucose 150 H ROS - Medication Medications: Active Medications Generic Name Dose Route Start Last Admin Trade Name Freq PRN Reason Stop Dose Admin Acetaminophen 1,000 mg 10/23/18 17:26 11/03/18 06:29 Tylenol PO 1,000 mg Q6H PRN Administration Moderate to Severe Pain (6-10) Acetaminophen 325 mg 10/24/18 05:14 10/25/18 20:18 Tylenol DE 325 mg Q4H PRN Administration Headache/Fever or Pain Amlodipine Besylate 5 mg 10/26/18 21:00 11/03/18 08:21 Norvasc PO 5 mg BID NIKOLAS Administration Aspirin 81 mg 10/28/18 09:00 11/03/18 08:21 Ecotrin PO 81 mg DAILY NIKOLAS Administration Calcium Acetate 1,334 mg 10/30/18 08:00 11/03/18 08:21 Phoslo PO 1,334 mg TID-WM NIKOLAS Administration Carvedilol 12.5 mg 10/21/18 17:00 11/03/18 08:22 Coreg PO 12.5 mg BID-WM NIKOLAS Administration Clonidine 0.1 mg 11/01/18 01:58 11/01/18 02:05 Catapres PO 0.1 mg Q4H PRN Administration SBP > 180 Cyanocobalamin 1,000 mcg 10/22/18 09:00 11/03/18 08:22 Vitamin B-12 PO 1,000 mcg DAILY NIKOLAS Administration Epoetin Edson-epbx 7,500 unit 10/30/18 09:00 10/30/18 11:40 Retacrit SC 7,500 unit Q7D NIKOLAS Administration Famotidine 20 mg 11/03/18 09:00 11/03/18 08:21 Pepcid PO 20 mg DAILY NIKOLAS Administration Folic Acid 1 mg 10/22/18 09:00 11/03/18 08:21 Folvite PO 1 mg DAILY NIKOLAS Administration Heparin Sodium (Porcine) 5,000 units 10/25/18 09:00 11/02/18 21:14 Heparin SC 5,000 units BID NIKOLAS Administration Hydralazine HCl 10 mg 10/21/18 11:51 10/25/18 06:20 Apresoline SLOW IVP 10 mg Q4H PRN Administration SBP Greater Than 180 Hydralazine HCl 25 mg 10/21/18 15:00 11/03/18 08:22 Apresoline PO 25 mg TID NIKOLAS Administration Hydroxyzine HCl 10 mg 10/31/18 15:41 11/02/18 19:52 Atarax PO 10 mg TIDPRN PRN Administration Itching Loperamide HCl 2 mg 10/31/18 15:33 10/31/18 16:25 Imodium PO 2 mg PRN PRN Administration Diarrhea/Loose Stools Losartan Potassium 25 mg 11/02/18 09:00 11/03/18 08:21 Cozaar PO 25 mg DAILY NIKOLAS Administration Melatonin 3 mg 10/31/18 21:00 11/02/18 21:15 Melatonin PO 3 mg HS NIKOLAS Administration Neomycin/Polymyxin/Bacitracin 1 gm 10/24/18 09:00 11/03/18 08:22 Triple Antibiotic TOP 1 gm DAILY NIKOLAS Administration Nystatin 0 gm 10/29/18 21:00 11/03/18 08:23 Mycostatin Powder TOP 1 applic Q12HR NIKOLAS Administration Saccharomyces Boulardii 250 mg 10/31/18 21:00 11/02/18 21:15 Florastor PO 250 mg HS NIKOLAS Administration Sodium Chloride 10 ml 10/21/18 11:44 10/25/18 14:20 Flush - Normal Saline IVF 10 ml PRN PRN Administration Saline Flush Trazodone HCl 50 mg 10/31/18 23:36 11/01/18 20:22 Desyrel PO 50 mg HSPRN PRN Administration Insomnia - Exam NAD ENT: normocephalic atraumatic Neck: supple Neck - other findings: no ttp along neck/SCM or occipital region of head Heart: RRR, no murmur Respiratory: CTAB, no wheezes, no rales, no ronchi Gastrointestinal: soft, non-tender, non-distended Extremities: no cyanosis, no clubbing, no edema Neurological: no focal deficits Hosp A/P (1) Hypertension Code(s): I10 - ESSENTIAL (PRIMARY) HYPERTENSION Status: Chronic (2) ESRD (end stage renal disease) Code(s): N18.6 - END STAGE RENAL DISEASE Status: Chronic (3) Elevated troponin Code(s): R74.8 - ABNORMAL LEVELS OF OTHER SERUM ENZYMES Status: Acute (4) Encephalopathy acute Code(s): G93.40 - ENCEPHALOPATHY, UNSPECIFIED Status: Resolved (5) Secondary hyperparathyroidism of renal origin Code(s): N25.81 - SECONDARY HYPERPARATHYROIDISM OF RENAL ORIGIN Status: Chronic - Plan Plan: - Appreciate Nephrology consult * Dialysis chair has been arranged at [facility] T, Th, Sat * awaiting SNF approval - sent to the [facility] - BP's not optimal - will increase hydralazine to four times daily. Continue coreg, losartan at current doses. - Continue restoril at night - will d/c trazodone and melatonin - Continue PT/OT and planning for SNF as transition to home dvt prophy - heparin gi prophy - not indicated code status full reviewed plan of care with patient through hospital interpretor system, no questions or further needs at end of eval
[2018-11-03] MEDS: hydrOXYzine 10 MG TAB PO PRN ×2 (12:25→20:15)
[2018-11-03] MEDS: Saccharomyces boulardii 250 MG CAP PO SCH (20:14)
[2018-11-03] MEDS: Loperamide HCl 2 MG CAP PO PRN (20:15)
[2018-11-03] MEDS: Temazepam 15 MG CAP PO PRN (21:02)
[2018-11-04 04:05] LABS: #Basophils 0.1 thou/uL (0.0-0.2); #Eosinphils 0.3 thou/uL (0.0-0.7); #Lymphocytes 2.2 thou/uL (1.20-3.40); #Monocytes 0.8 thou/uL (0.11-0.59); #Neutrophils 4.4 thou/uL (1.40-6.50); %Basophils 0.9 % (0.0-1.0); %Eosinophils 3.5 % (0.0-10.0); %Monocytes 10.7 % (0.0-10.0); %Neutrophils 56.8 % (42.0-75.0); Hemoglobin 10.9 g/dL (12.0-16.0); Mean Corpuscular HGB CONC 31.7 g/dL (32.0-36.0); Mean Corpuscular Hemoglobin 26.1 pg (27.0-31.0); Mean Corpuscular Volume 82.4 fL (78.0-98.0); Mean Platelet Volume 6.8 fL (7.4-10.4); Platelet Count 321 thou/uL (130-400); RBC Distribution Width 17.4 % (11.5-14.5); Red Blood Cell (RBC) Count 4.19 mill/uL (4.20-5.40); White Blood Cell (WBC) Count 7.7 thou/uL (4.8-10.8)
[2018-11-04 04:22] LABS: Anion Gap 15 mmol/L (10-20); BUN (Urea Nitrogen) 31 mg/dL (9.8-20.1); Calc. Creatinine Clearance 7 mL/min (70-130); Calcium 8.6 mg/dL (7.8-10.44); Carbon Dioxide 27 mmol/L (23-31); Chloride 98 mmol/L (98-107); Estimated GFR-MDRD 6; Glucose 87 mg/dL (80-115); Potassium 4.4 mmol/L (3.5-5.1); Sodium 136 mmol/L (136-145)
[2018-11-04] MEDS: hydrOXYzine 10 MG TAB PO PRN ×2 (07:04→12:33)
[2018-11-04 07:15] LABS: Hep B Surface AG-Rflx Sendout Negative (Negative)
--- NOTE | 2018-11-04 08:40 | PRG ---
DATE OF SERVICE: 11/04/2018 SUBJECTIVE: Ms. Devi is a 68-year-old female with ESRD and followed up by the Renal Service for her maintenance hemodialysis. She is currently tolerating her dialysis regimen, fluid removal only as tolerated. She came in with a mental status change secondary to uremic encephalopathy. She underwent aggressive dialysis treatment. This improved her uremic encephalopathy. This morning, she voices no new complaints. No chest pain or shortness of breath. OBJECTIVE: VITAL SIGNS: Blood pressure 144/73, heart rate 69, respiratory rate 16, temperature 98.2, and pulse ox 92%. GENERAL: She is noted to be awake, alert, comfortable, not in distress. SKIN: Adequate turgor. HEENT: She has pinkish conjunctivae. Anicteric sclerae. NECK: No neck mass. No carotid bruits. No JVD. CHEST: No deformities. LUNGS: Clear breath sounds. No wheezing. No crackles. HEART: Normal sinus rhythm. No murmur. No gallops. No rubs. ABDOMEN: Globular, soft, and nontender. No masses. EXTREMITIES: No edema. No deformities. MEDICATIONS: Medications of November 04, 2018, reviewed. LABORATORY DATA: Laboratories of November 04, 2018; white count 7.7, hemoglobin 10.9, and hematocrit 34.6. Sodium 136, potassium 4.4, chloride 98, carbon dioxide 27, BUN 31, creatinine 7.17, and calcium 8.6. ASSESSMENT AND PLAN: 1. Borderline anemia - currently the patient is on weekly Epogen. Continue current management. 2. Uremic encephalopathy, much improved with hemodialysis. 3. End-stage renal disease, stable. Continuing Friday, Friday, and Friday dialysis. Fluid removal only as tolerated. Awaiting fpc facility placement. Job ID: [id number]
[2018-11-04] MEDS: Calcium Acetate 667 MG CAP PO SCH ×3 (09:37→17:10)
[2018-11-04] MEDS: hydrALAZINE 25 MG TAB PO SCH ×4 (09:37→20:12)
[2018-11-04] MEDS: Acetaminophen 500 MG TAB PO PRN (10:35)
[2018-11-04] MEDS ORDERED: Heparin 10,000 UNITS/ 10 ML VIAL ONE (11:11)
[2018-11-04] MEDS: Losartan 25 MG TAB PO SCH (12:30)
[2018-11-04] MEDS: Carvedilol 6.25 MG TAB PO SCH ×2 (12:30→17:10)
[2018-11-04] MEDS: Cyanocobalamin (Vitamin B-12) 1,000 MCG TAB PO SCH (12:30)
[2018-11-04] MEDS: Amlodipine 5 MG TAB PO SCH ×2 (12:30→20:12)
[2018-11-04] MEDS: Famotidine 20 MG TAB PO SCH (12:30)
[2018-11-04] MEDS: Folic Acid 1 MG TAB PO SCH (12:31)
[2018-11-04] MEDS: Heparin 5,000 UNITS/ML VIAL SC SCH ×2 (12:31→20:15)
[2018-11-04] MEDS: Aspirin 81 mg Enteric Coated Tablet PO SCH (12:31)
[2018-11-04] MEDS: Nystatin Powder 15 GM BOT TOP SCH ×2 (12:32→20:14)
--- NOTE | 2018-11-04 15:01 | PDOC.HOSPP ---
- Subjective Encounter Date: 11/04/18 (f/u ESRD) Encounter Time: 14:59 Subjective: Pt c/o itching all over - not responding to 10 mg hydroxyzine. Also c/o headache and back pain with dialysis that is improved with tylenol after dialysis is complete. - Objective Vital Signs & Weight: Vital Signs (12 hours) Temp Pulse Resp BP BP BP Pulse Ox 11/04/18 12:30 69 151/70 H 11/04/18 12:00 98.1 F 76 18 127/60 97 11/04/18 09:37 69 11/04/18 03:34 98.2 F 69 16 144/73 H 92 L Weight Admit Weight 135 lb Weight 123 lb 9 oz Most Recent Monitor Data Heart Rate from ECG 72 NIBP 141/66 NIBP BP-Mean 91 Respiration from ECG 19 SpO2 100 I&O: 11/03/18 11/04/18 11/05/18 06:59 06:59 06:59 Intake Total 220 1600 Balance 220 1600 Result Diagrams: 11/04/18 03:55 11/04/18 03:30 Additional Labs: Accuchecks 10/29/18 05:40 POC Glucose 94 ROS - Medication Medications: Active Medications Generic Name Dose Route Start Last Admin Trade Name Freq PRN Reason Stop Dose Admin Acetaminophen 1,000 mg 10/23/18 17:26 11/03/18 15:32 Tylenol PO 1,000 mg Q6H PRN Administration Moderate to Severe Pain (6-10) Acetaminophen 325 mg 10/24/18 05:14 10/25/18 20:18 Tylenol CA 325 mg Q4H PRN Administration Headache/Fever or Pain Amlodipine Besylate 5 mg 10/26/18 21:00 11/04/18 12:30 Norvasc PO 5 mg BID NIKOLAS Administration Aspirin 81 mg 10/28/18 09:00 11/04/18 12:31 Ecotrin PO 81 mg DAILY NIKOLAS Administration Calcium Acetate 1,334 mg 10/30/18 08:00 11/04/18 12:30 Phoslo PO 1,334 mg TID-WM NIKOLAS Administration Carvedilol 12.5 mg 10/21/18 17:00 11/04/18 12:30 Coreg PO 12.5 mg BID-WM NIKOLAS Administration Clonidine 0.1 mg 11/01/18 01:58 11/01/18 02:05 Catapres PO 0.1 mg Q4H PRN Administration SBP > 180 Cyanocobalamin 1,000 mcg 10/22/18 09:00 11/04/18 12:30 Vitamin B-12 PO 1,000 mcg DAILY NIKOLAS Administration Epoetin Edson-epbx 7,500 unit 10/30/18 09:00 10/30/18 11:40 Retacrit SC 7,500 unit Q7D NIKOLAS Administration Famotidine 20 mg 11/03/18 09:00 11/04/18 12:30 Pepcid PO 20 mg DAILY NIKOLAS Administration Folic Acid 1 mg 10/22/18 09:00 11/04/18 12:31 Folvite PO 1 mg DAILY NIKOLAS Administration Heparin Sodium (Porcine) 5,000 units 10/25/18 09:00 11/04/18 12:31 Heparin SC Not Given BID NIKOLAS Hydralazine HCl 10 mg 10/21/18 11:51 10/25/18 06:20 Apresoline SLOW IVP 10 mg Q4H PRN Administration SBP Greater Than 180 Hydralazine HCl 25 mg 11/03/18 13:00 11/04/18 12:30 Apresoline PO 25 mg QID NIKOLAS Administration Loperamide HCl 2 mg 10/31/18 15:33 11/03/18 20:15 Imodium PO 2 mg PRN PRN Administration Diarrhea/Loose Stools Losartan Potassium 25 mg 11/02/18 09:00 11/04/18 12:30 Cozaar PO 25 mg DAILY NIKOLAS Administration Nystatin 0 gm 10/29/18 21:00 11/04/18 12:32 Mycostatin Powder TOP 1 applic Q12HR NIKOLAS Administration Saccharomyces Boulardii 250 mg 10/31/18 21:00 11/03/18 20:14 Florastor PO 250 mg HS NIKOLAS Administration Sodium Chloride 10 ml 10/21/18 11:44 10/25/18 14:20 Flush - Normal Saline IVF 10 ml PRN PRN Administration Saline Flush Temazepam 15 mg 11/03/18 07:34 11/03/18 21:02 Restoril PO 15 mg HSPRN PRN Administration Insomnia - Exam NAD Neck: supple Heart: RRR, no murmur, no gallops, no rubs Respiratory: CTAB, no wheezes, no rales, no ronchi Gastrointestinal: soft, non-tender, non-distended, normal bowel sounds Skin: normal turgor Neurological: no focal deficits Musculoskeletal: normal tone, normal strength Psychiatric: normal affect, A&O x 3 Hosp A/P (1) Hypertension Code(s): I10 - ESSENTIAL (PRIMARY) HYPERTENSION Status: Chronic Qualifiers: Hypertension type: essential hypertension Qualified Code(s): I10 - Essential (primary) hypertension (2) ESRD (end stage renal disease) Code(s): N18.6 - END STAGE RENAL DISEASE Status: Chronic (3) Elevated troponin Code(s): R74.8 - ABNORMAL LEVELS OF OTHER SERUM ENZYMES Status: Acute (4) Encephalopathy acute Code(s): G93.40 - ENCEPHALOPATHY, UNSPECIFIED Status: Resolved (5) Secondary hyperparathyroidism of renal origin Code(s): N25.81 - SECONDARY HYPERPARATHYROIDISM OF RENAL ORIGIN Status: Chronic - Plan Plan: - Appreciate Nephrology consult - discussed pruritis with Dr. Villarreal as well as headache/back pain with dialysis - change to atarax 25 mg TID. He will review dialysis settings. * Dialysis chair has been arranged at [facility] , , Fri- they cannot accept a patient on the weekends - so they can either dialyze tomorrow or Friday. * awaiting SNF approval - sent to the [facility]. In discussion with Miley/outsole caser - pt's family is considering taking her home and providing care there. They will check in with Miley tomorrow. If pt is discharged to home, she will need to stay here through Friday for dialysis, then f/u at [facility] next Friday. - BP's improved - pt is on carvedilol, losartan, hydralazine and amlodipine. the hydralazine was increased to four times daily yesterday - consider increasing tomorrow if bp's remain elevated - Continue restoril at night - Continue PT/OT - Await f/u from family with regards to disposition - pt is ready for discharge. for SNF - awaiting insurance approval. dvt prophy - heparin gi prophy - not indicated code status full reviewed plan of care with patient through hospital interpretor system, no questions or further needs at end of eval
[2018-11-04] MEDS: hydrOXYzine 25 MG TAB PO SCH ×2 (15:34→20:13)
[2018-11-04] MEDS: Saccharomyces boulardii 250 MG CAP PO SCH (20:13)
[2018-11-04] MEDS: Temazepam 15 MG CAP PO PRN (21:51)
[2018-11-05] MEDS: Heparin 5,000 UNITS/ML VIAL SC SCH ×2 (07:50→20:53)
[2018-11-05] MEDS: Calcium Acetate 667 MG CAP PO SCH ×3 (07:50→16:15)
[2018-11-05] MEDS: Amlodipine 5 MG TAB PO SCH ×2 (07:51→20:54)
[2018-11-05] MEDS: Folic Acid 1 MG TAB PO SCH (07:51)
[2018-11-05] MEDS: Aspirin 81 mg Enteric Coated Tablet PO SCH (07:51)
[2018-11-05] MEDS: Losartan 25 MG TAB PO SCH (07:51)
[2018-11-05] MEDS: Carvedilol 6.25 MG TAB PO SCH ×2 (07:51→16:15)
[2018-11-05] MEDS: hydrALAZINE 25 MG TAB PO SCH ×4 (07:51→20:55)
[2018-11-05] MEDS: Cyanocobalamin (Vitamin B-12) 1,000 MCG TAB PO SCH (07:51)
[2018-11-05] MEDS: Famotidine 20 MG TAB PO SCH (07:51)
[2018-11-05] MEDS: hydrOXYzine 25 MG TAB PO SCH ×3 (07:58→20:55)
[2018-11-05] MEDS: Nystatin Powder 15 GM BOT TOP SCH ×2 (08:12→20:56)
[2018-11-05] MEDS: Acetaminophen 500 MG TAB PO PRN (10:08)
[2018-11-05 15:22] VITALS: BMI 22.6
--- NOTE | 2018-11-05 16:03 | PDOC.HOSPP ---
- Subjective Encounter Date: 11/05/18 Encounter Time: 12:30 Subjective: Patient seen and examined. No new complaints. No overnight events - Objective Vital Signs & Weight: Vital Signs (12 hours) Temp Pulse Resp BP Pulse Ox 11/05/18 12:38 70 11/05/18 08:00 96 11/05/18 07:51 70 11/05/18 07:16 98.8 F 70 16 149/67 H 96 Weight Admit Weight 135 lb Weight 123 lb 9 oz Most Recent Monitor Data Heart Rate from ECG 72 NIBP 141/66 NIBP BP-Mean 91 Respiration from ECG 19 SpO2 100 I&O: 11/04/18 11/05/18 11/06/18 06:59 06:59 06:59 Intake Total 1600 1240 Balance 1600 1240 Result Diagrams: 11/04/18 03:55 11/04/18 03:30 ROS - Review of Systems Constitutional: denies: fever, chills, sweats, weakness, malaise, other Eyes: denies: pain, vision change, conjunctivae inflammation, eyelid inflammation, redness, other ENT: denies: ear pain, ear discharge, nose pain, nose discharge, nose congestion , mouth pain, mouth swelling, throat pain, throat swelling, other Respiratory: denies: cough, dry, shortness of breath, hemoptysis, SOB with excertion, pleuritic pain, sputum, wheezing, other Cardiovascular: denies: chest pain, palpitations, orthopnea, paroxysmal noc. dyspnea, edema, light headedness, other Gastrointestinal: denies: nausea, vomitting, abdominal pain, diarrhea, constipation, melena, hematochezia, other Genitourinary: denies: dysuria, frequency, incontinence, hematuria, retention, other Musculoskeletal: denies: neck pain, shoulder pain, arm pain, back pain, hand pain, leg pain, foot pain, other Skin: denies: rash, lesions, chester, bruising, other - Medication Medications: Active Medications Generic Name Dose Route Start Last Admin Trade Name Freq PRN Reason Stop Dose Admin Acetaminophen 1,000 mg 10/23/18 17:26 11/05/18 10:08 Tylenol PO 1,000 mg Q6H PRN Administration Moderate to Severe Pain (6-10) Acetaminophen 325 mg 10/24/18 05:14 10/25/18 20:18 Tylenol [place] 325 mg Q4H PRN Administration Headache/Fever or Pain Amlodipine Besylate 5 mg 10/26/18 21:00 11/05/18 07:51 Norvasc PO 5 mg BID NIKOLAS Administration Aspirin 81 mg 10/28/18 09:00 11/05/18 07:51 Ecotrin PO 81 mg DAILY NIKOLAS Administration Calcium Acetate 1,334 mg 10/30/18 08:00 11/05/18 12:38 Phoslo PO 1,334 mg TID-WM NIKOLAS Administration Carvedilol 12.5 mg 10/21/18 17:00 11/05/18 07:51 Coreg PO 12.5 mg BID-WM NIKOLAS Administration Clonidine 0.1 mg 11/01/18 01:58 11/01/18 02:05 Catapres PO 0.1 mg Q4H PRN Administration SBP > 180 Cyanocobalamin 1,000 mcg 10/22/18 09:00 11/05/18 07:51 Vitamin B-12 PO 1,000 mcg DAILY NIKOLAS Administration Epoetin Edson-epbx 7,500 unit 10/30/18 09:00 10/30/18 11:40 Retacrit SC 7,500 unit Q7D NIKOLAS Administration Famotidine 20 mg 11/03/18 09:00 11/05/18 07:51 Pepcid PO 20 mg DAILY NIKOLAS Administration Folic Acid 1 mg 10/22/18 09:00 11/05/18 07:51 Folvite PO 1 mg DAILY NIKOLAS Administration Heparin Sodium (Porcine) 5,000 units 10/25/18 09:00 11/05/18 07:50 Heparin SC 5,000 units BID NIKOLAS Administration Hydralazine HCl 10 mg 10/21/18 11:51 10/25/18 06:20 Apresoline SLOW IVP 10 mg Q4H PRN Administration SBP Greater Than 180 Hydralazine HCl 25 mg 11/03/18 13:00 11/05/18 12:38 Apresoline PO 25 mg QID NIKOLAS Administration Hydroxyzine HCl 25 mg 11/04/18 15:00 11/05/18 07:58 Atarax PO 25 mg TID NIKOLAS Administration Loperamide HCl 2 mg 10/31/18 15:33 11/03/18 20:15 Imodium PO 2 mg PRN PRN Administration Diarrhea/Loose Stools Losartan Potassium 25 mg 11/02/18 09:00 11/05/18 07:51 Cozaar PO 25 mg DAILY NIKOLAS Administration Nystatin 0 gm 10/29/18 21:00 11/05/18 08:12 Mycostatin Powder TOP 1 applic Q12HR NIKOLAS Administration Saccharomyces Boulardii 250 mg 10/31/18 21:00 11/04/18 20:13 Florastor PO 250 mg HS NIKOLAS Administration Sodium Chloride 10 ml 10/21/18 11:44 10/25/18 14:20 Flush - Normal Saline IVF 10 ml PRN PRN Administration Saline Flush Temazepam 15 mg 11/03/18 07:34 11/04/18 21:51 Restoril PO 15 mg HSPRN PRN Administration Insomnia - Exam NAD, awake alert Eye: PERRL, anicteric sclera ENT: normocephalic atraumatic, no oropharyngeal lesions Neck: supple, symmetric, no JVD Heart: RRR, no murmur, no gallops Respiratory: CTAB, no wheezes, no rales Gastrointestinal: soft, non-tender, non-distended Extremities: no cyanosis, no clubbing, no edema Skin: normal turgor, no lesions Neurological: CN's grossly intact, normal sensation to touch, no new deficit Musculoskeletal: normal tone, normal strength Psychiatric: normal affect, normal behavior Hosp A/P (1) ESRD (end stage renal disease) Code(s): N18.6 - END STAGE RENAL DISEASE Status: Chronic (2) Anemia of renal disease Code(s): D63.1 - ANEMIA IN CHRONIC KIDNEY DISEASE Status: Chronic (3) Diabetes type 2, controlled Code(s): E11.9 - TYPE 2 DIABETES MELLITUS WITHOUT COMPLICATIONS Status: Chronic (4) Hypertension Code(s): I10 - ESSENTIAL (PRIMARY) HYPERTENSION Status: Chronic Qualifiers: Hypertension type: essential hypertension Qualified Code(s): I10 - Essential (primary) hypertension (5) Secondary hyperparathyroidism of renal origin Code(s): N25.81 - SECONDARY HYPERPARATHYROIDISM OF RENAL ORIGIN Status: Chronic - Plan old records reviewed/req pt prefers to go home, she has outpt HD TTS, tomorrow after HD pt would be OK to discharge home medication reviewed as above symptomatic treatment
[2018-11-05] MEDS: Saccharomyces boulardii 250 MG CAP PO SCH (20:55)
[2018-11-05] MEDS: Temazepam 15 MG CAP PO PRN (20:55)
[2018-11-06] MEDS: Acetaminophen 500 MG TAB PO PRN ×2 (05:55→12:40)
[2018-11-06] MEDS: Calcium Acetate 667 MG CAP PO SCH ×2 (05:57→11:08)
[2018-11-06] MEDS: Nystatin Powder 15 GM BOT TOP SCH (09:00)
--- NOTE | 2018-11-06 10:14 | PRG ---
DATE OF SERVICE: 11/06/2018 SUBJECTIVE: Ms. Devi is a 68-year-old female, who was initially admitted for mental status change secondary to uremic encephalopathy. She was unable to do her peritoneal dialysis. She is now converted to hemodialysis. Mentation is much improved. She is undergoing dialysis today. No complaints of chest pain or shortness of breath. OBJECTIVE: VITAL SIGNS: Blood pressure 179/74, heart rate 67, respiratory rate 16, pulse ox 97%. GENERAL: Awake, alert, and comfortable, not in distress. SKIN: Adequate turgor. HEENT: She has pinkish conjunctivae. Anicteric sclerae. NECK: No neck mass. No carotid bruits. No JVD. CHEST: No deformities. LUNGS: Clear breath sounds. No wheezing. No crackles. HEART: Normal sinus rhythm. No murmur. No gallops. No rubs. ABDOMEN: Globular, soft, and nontender. No masses. EXTREMITIES: No edema. No deformities. MEDICATIONS: Medications of November 06, 2018, were reviewed. LABORATORY DATA: Laboratories of November 04, 2018: White count 7.7, hemoglobin 10.9. Sodium 136, potassium 4.4, chloride 98, carbon dioxide 27, BUN 31, creatinine 7.17, glucose 87, calcium 8.6. ASSESSMENT AND PLAN: 1. End-stage renal disease, stable. We will continue current hemodialysis regimen. Fluid removal only as tolerated by the patient. She will now be converted to hemodialysis. She is unable to do her peritoneal dialysis. 2. Anemia. Continuing Epogen. The plan is to discharge her. I will follow her up at outpatient clinic. Job ID: [id number]
[2018-11-06] MEDS: hydrALAZINE 25 MG TAB PO SCH (10:58)
[2018-11-06] MEDS: Losartan 25 MG TAB PO SCH (10:58)
[2018-11-06] MEDS: Famotidine 20 MG TAB PO SCH (10:58)
[2018-11-06] MEDS: Carvedilol 6.25 MG TAB PO SCH (10:58)
[2018-11-06] MEDS: Folic Acid 1 MG TAB PO SCH (10:58)
[2018-11-06] MEDS: Aspirin 81 mg Enteric Coated Tablet PO SCH (10:58)
[2018-11-06] MEDS: Cyanocobalamin (Vitamin B-12) 1,000 MCG TAB PO SCH (10:59)
[2018-11-06] MEDS: Amlodipine 5 MG TAB PO SCH (10:59)
[2018-11-06] MEDS: Heparin 5,000 UNITS/ML VIAL SC SCH (10:59)
[2018-11-06] MEDS: hydrOXYzine 25 MG TAB PO SCH (11:01)
[2018-11-06] MEDS ORDERED: Heparin 1,000 UNITS/ML VIAL ONE (11:11)
[2018-11-06 11:42] VITALS: BP 169/76; TEMP 97.7
[2018-11-06] MEDS: EPOETIN ALFA-EPBX (ESRD) 4,000 UNIT/ML VIAL SC SCH (12:40)
--- NOTE | 2018-11-06 17:47 | DIS ---
DATE OF ADMISSION: 10/21/2018 DATE OF DISCHARGE: 11/06/2018 DISCHARGE DISPOSITION: Home. PRIMARY DISCHARGE DIAGNOSES: End-stage renal disease, initiated on hemodialysis after switching from peritoneal dialysis; uremia on admission, resolved. SECONDARY DISCHARGE DIAGNOSES: Chronic anemia due to renal disease; diabetes mellitus type 2; hypertension. PROCEDURES DONE DURING HOSPITALIZATION: CT brain without contrast done on the day of admission showed no acute intracranial process. CT cervical spine without contrast showed no evidence of acute osseous abnormality of cervical spine. Echo with 2D Doppler done showed EF of 50% to 55%, mild concentric LVH. The right internal jugular cuffed tunneled hemodialysis catheter with the left arm primary fistula placed by Dr. Dillon on 10/23/2018, also had removal of peritoneal dialysis catheter at the same setting. Blood cultures x2, no growth. Peritoneal fluid culture showed no growth. Discharge H and H 10 and 34, platelet count of 321. Discharge BUN and creatinine are 31 and 7.17; admitting creatinine was 13.7, admitting BUN was 53. Serum bicarb on the was 27. Free T4 1.0. TSH 5.21. HBS antigen nonreactive. DISCHARGE MEDICATIONS: 1. Calcium acetate 667 mg four capsules three times daily. 2. Coreg 12.5 mg twice daily. 3. Norvasc 5 mg twice daily. 4. Aspirin 81 mg daily. 5. Vitamin B12 1000 mcg p.o. daily. 6. Pepcid 20 mg daily. 7. Folic acid 1 mg p.o. daily. 8. Hydralazine 25 mg p.o. 4 times daily. 9. Cozaar 25 mg p.o. daily. ALLERGIES: NO KNOWN DRUG ALLERGIES. INPATIENT CONSULT: 1. Dr. Villarreal for Nephrology. 2. Dr. Miller for Infectious Disease. 3. Dr. Dillon for General Surgery. DISCHARGE PLAN: The patient to follow up with Dr. Villarreal as advised and primary care physician in 1 week. BRIEF COURSE DURING HOSPITALIZATION: The patient initially got admitted on after she was found to be in altered mental state. The patient was on peritoneal dialysis prior to arrival and had issues with its malfunction. She was switched over to hemodialysis. Ms. Devi had placement of tunneled hemodialysis catheter along with primary fistula placed by Dr. Dillon. She initially had uremia, likely cause of her acute encephalopathy with metabolic in nature. She has had a slow gentle recovery during her stay here. The patient did not want to be placed and is wanting to go home. Her outpatient hemodialysis has been arranged. She is hemodynamically stable and ambulating in the room. She is also tolerating oral solid diet. She has been cleared for discharge by Dr. Villarreal. Please note, I have seen and examined the patient on the day of discharge. Job ID: [id number] MTDD
== END 2018-11-06 12:45 | disposition home or self-care (01) | DRG 981 ==
LOC: ERS 06:05 → T4-A 11:43 → IMCU/EMU 10-24 11:25 → ONC 10-30 16:48
PROVIDERS: ADMIT Internal Medicine; ATTEND Internal Medicine
PROC: 3E1M39Z Irrigation of Peritoneal Cavity using Dialysate, Percutaneous Approach (ICD-10-PCS; 2018-10-21)
PROC: 031C09F Bypass Left Radial Artery to Lower Arm Vein with Autologous Venous Tissue, Open Approach (ICD-10-PCS; principal; 2018-10-23)
PROC: 0JH63XZ Insertion of Tunneled Vascular Access Device into Chest Subcutaneous Tissue and Fascia, Percutaneous Approach (ICD-10-PCS; 2018-10-23)
PROC: 02HV33Z Insertion of Infusion Device into Superior Vena Cava, Percutaneous Approach (ICD-10-PCS; 2018-10-23)
PROC: B548ZZA Ultrasonography of Superior Vena Cava, Guidance (ICD-10-PCS; 2018-10-23)
PROC: 0WPGX3Z Removal of Infusion Device from Peritoneal Cavity, External Approach (ICD-10-PCS; 2018-10-23)
PROC: 5A1D70Z Performance of Urinary Filtration, Intermittent, Less than 6 Hours Per Day (ICD-10-PCS; 2018-10-24)
DX: G92 Toxic encephalopathy (principal); N18.6 End stage renal disease; J69.0 Pneumonitis due to inhalation of food and vomit; T85.611A Breakdown (mechanical) of intraperitoneal dialysis catheter, initial encounter; N25.81 Secondary hyperparathyroidism of renal origin; E87.1 Hypo-osmolality and hyponatremia; I50.42 Chronic combined systolic (congestive) and diastolic (congestive) heart failure; I13.2 Hypertensive heart and chronic kidney disease with heart failure and with stage 5 chronic kidney disease, or end stage renal disease; W18.30XA Fall on same level, unspecified, initial encounter; R29.6 Repeated falls; E11.22 Type 2 diabetes mellitus with diabetic chronic kidney disease; E78.5 Hyperlipidemia, unspecified; D63.1 Anemia in chronic kidney disease; E87.5 Hyperkalemia; E87.6 Hypokalemia; L30.4 Erythema intertrigo; G47.00 Insomnia, unspecified; Z79.899 Other long term (current) drug therapy; Z98.51 Tubal ligation status; Z99.2 Dependence on renal dialysis; Z79.82 Long term (current) use of aspirin; Z91.15 Patient's noncompliance with renal dialysis
CPT/HCPCS: 36415; 36416; 51701; 70450; 70470; 71045; 72100; 72125; 80048; 80053; 80202; 81003; 81015; 82140; 82550; 82553; 83690; 84100; 84439; 84443; 84484; 85025; 85610; 85730; 87040; 87070; 87205; 87340; 89051; 90935; 90945; 93005; 93306; 93970; 94760; 96365; 96366; 96374; 96375; 96376; A4353; C1752; C1769; G0257; G0365; G0378; J0360; J0670; J0690; J0692; J0696; J1644; J2001; J2405; J2543; J2704; J2720; J3010; J3370; J3490; J7050; Q0163; Q5105; Q9966

== ENCOUNTER 2019-01-18 21:23 | Inpatient (IN) | payer BC ==
[2019-01-18 21:51] LABS: #Eosinphils 0.3 thou/uL (0.0-0.7); #Lymphocytes 2.2 thou/uL (1.20-3.40); #Monocytes 0.9 thou/uL (0.11-0.59); #Neutrophils 5.7 thou/uL (1.40-6.50); %Basophils 0.4 % (0.0-1.0); %Eosinophils 2.8 % (0.0-10.0); %Monocytes 9.9 % (0.0-10.0); %Neutrophils 62.9 % (42.0-75.0); Hemoglobin 8.6 g/dL (12.0-16.0); Mean Corpuscular HGB CONC 32.2 g/dL (32.0-36.0); Mean Corpuscular Hemoglobin 27.3 pg (27.0-31.0); Mean Corpuscular Volume 84.8 fL (78.0-98.0); Mean Platelet Volume 7.2 fL (7.4-10.4); Platelet Count 242 thou/uL (130-400); RBC Distribution Width 15.8 % (11.5-14.5); Red Blood Cell (RBC) Count 3.14 mill/uL (4.20-5.40); White Blood Cell (WBC) Count 9.1 thou/uL (4.8-10.8)
[2019-01-18 22:10] LABS: ALT (SGPT) 8 U/L (8-55); AST (SGOT) 18 U/L (5-34); Alkaline Phosphatase 62 U/L (40-110); Anion Gap 21 mmol/L (10-20); BUN (Urea Nitrogen) 70 mg/dL (9.8-20.1); Bilirubin, Total 0.7 mg/dL (0.2-1.2); Calc. Creatinine Clearance 0 mL/min (70-130); Calcium 9.5 mg/dL (7.8-10.44); Carbon Dioxide 24 mmol/L (23-31); Chloride 97 mmol/L (98-107); Estimated GFR-MDRD 5; Globulin 3.8 g/dL (2.4-3.5); Glucose 94 mg/dL (80-115); Potassium 5.5 mmol/L (3.5-5.1); Protein, Total 7.8 g/dL (6.0-8.3); Sodium 136 mmol/L (136-145)
--- NOTE | 2019-01-18 22:18 | CT ---
CT Brain WO Con: 01/18/2019 12:00 AM CLINICAL HISTORY: History of right arm numbness. IMAGING TECHNIQUE: Multiple CT images were obtained of the brain without IV contrast. COMPARISON: CT the brain dated October 21, 2018 FINDINGS: Brain: There is a mixed density subdural hematoma overlying the left cerebral convexity with moderat e mass effect on the underlying left frontal cerebral parenchyma. Ventricles: Normal without evidence of hydrocephalus. There is midline shift of left to right measuri ng 2 mm.. Skull: Intact.. Visualized Paranasal sinuses: Clear.. Mastoid air cells:Clear. Extracranial soft tissues:Normal. IMPRESSION: Mixed density subdural hematoma overlying the left posterior frontal convexity with left right midlin e shift of 2 mm. Findings called to Dr. Reaves at 10:13 PM on January 18, 2019.
--- NOTE | 2019-01-18 22:27 | RAD ---
Chest AP view INDICATION: Right arm numbness COMPARISON: October 26, 2018 FINDINGS: Lungs:The lungs are clear Cardiac silhouette:Stable prominent cardiomegaly and right IJ dialysis catheter Pulmonary vasculature:Normal Pleural spaces:No pleural effusion or pneumothorax is demonstrated. Upper abdomen:No abnormality seen. Osseous structures: No acute osseous abnormality. Additional findings:None. IMPRESSION: Stable prominent cardiomegaly and right IJ dialysis catheter.
[2019-01-18 22:32] LABS: CKMB 1.3 ng/mL (0-6.6)
[2019-01-18] MEDS ORDERED: Ondansetron PF 4 MG/2 ML Vial IVP PRN (23:31)
[2019-01-18] MEDS ORDERED: Docusate 100 MG CAP PO PRN (23:31)
[2019-01-19] MEDS: Labetalol HCl 100 MG/20 ML VIAL SLOW IVP PRN ×3 (00:42→19:02)
--- NOTE | 2019-01-19 01:09 | HP ---
HISTORY OF PRESENT ILLNESS: Ms. Devi is a very pleasant 68-year-old woman presenting to the emergency department at [facility] via EMS for sudden onset of right-sided facial tingling and numbness with aphasia that also began to progress to right arm numbness and perceived weakness. This began while taking a shower, dropped the soap and then was unable to pick that up, which was very concerning her and this prompted her to call her daughter and then EMS. Neurosurgery was called after CT scan of the head reveals nwamvcrv-vu-lratj size subdural hematoma in the left frontal convexity and is more rostral. There is further extension along the entire convexity. This resulted in jekq-tq-szdrutka displacement of the brain parenchyma underlying as well as a 2 mm midline shift. The subdural collection is mixed density with some areas of acute and subacute and other areas of chronic blood. She denies taking any blood thinning medications, but is an end-stage renal patient, has dialysis 3 times a week. Review of her imaging after a reported fall in September shows a large left-sided occipital scalp hematoma as well as interval increase in the subdural space with what at that time were likely hygromas. There was also some faint areas of hyperdensity within these same area on the left that likely could potentially be blood products and could represent a nidus for this current situation. She denies any other falls and denies any other anticoagulation. PAST MEDICAL HISTORY: End-stage renal disease, type 2 diabetes, hypertension. PAST SURGICAL HISTORY: Bilateral cataracts, dialysis shunt, tubal ligation, bladder suspension. CURRENT MEDICATIONS: 1. Amlodipine. 2. Losartan. 3. Carvedilol. 4. Calcium. 5. Folic acid. 6. Hydroxyzine. 7. Famotidine. 8. RenaPlex. 9. B12. 10. Occasional Tylenol. ALLERGIES: NO KNOWN DRUG ALLERGIES. PHYSICAL EXAMINATION: GENERAL: The patient is alert and oriented x4. EXTREMITIES: Bilateral upper and bilateral lower extremity motor exam reveals grossly intact strength in all movements of all extremities. She has no sensory deficit that I am able to discern. CURRENT VITAL SIGNS: 140/85, pulse is 59, respirations of 16, O2 saturation 97 on room air. HEENT: Pupils are equal, round, and reactive to light. Extraocular movements are intact. NEUROLOGIC: Cranial nerves 2 through 12 are grossly intact. ASSESSMENT: Mixed density subdural hematoma and upper extremity paresthesias. PLAN: At this time, as patient has returned to her neurologic baseline, my recommendation is for nonsurgical intervention at the moment with close follow for neurologic status. I discussed with the family, the patient at bedside at length regarding her current situation and that given her renal status and 3 days a week dialysis, it would likely be best to see if we can watch this hematoma as opposed to surgical intervention at this time, particularly given her excellent neurologic state at present. I answered questions about the possibility of there still needing to be surgical intervention at a later date as this certainly could be the case if her hematoma continues to worsen or if her neurologic status changes. We will potentially be re-scan in the morning, but more than likely would rather re-scan 48 hours from now unless there is significant neurologic change. We will need to consult Medicine Service as well as Dr. Villarreal with Nephrology to coordinate further dialysis treatments while in-house. Plan was discussed with Dr. Kraus. We will follow up in the morning. Job ID: [id number]
[2019-01-19 01:11] LABS: Troponin I 0.016 ng/mL (< 0.028)
[2019-01-19 04:10] LABS: #Eosinphils 0.3 thou/uL (0.0-0.7); #Lymphocytes 2.1 thou/uL (1.20-3.40); #Monocytes 0.8 thou/uL (0.11-0.59); #Neutrophils 5.2 thou/uL (1.40-6.50); %Basophils 0.1 % (0.0-1.0); %Eosinophils 3.4 % (0.0-10.0); %Lymphocytes 25.1 % (21.0-51.0); %Monocytes 9.3 % (0.0-10.0); %Neutrophils 62.1 % (42.0-75.0); Hemoglobin 8.4 g/dL (12.0-16.0); Mean Corpuscular HGB CONC 33.4 g/dL (32.0-36.0); Mean Corpuscular Hemoglobin 28.7 pg (27.0-31.0); Mean Platelet Volume 7.1 fL (7.4-10.4); Platelet Count 213 thou/uL (130-400); RBC Distribution Width 15.8 % (11.5-14.5); Red Blood Cell (RBC) Count 2.93 mill/uL (4.20-5.40); White Blood Cell (WBC) Count 8.4 thou/uL (4.8-10.8)
[2019-01-19 04:22] LABS: Anion Gap 19 mmol/L (10-20); BUN (Urea Nitrogen) 85 mg/dL (9.8-20.1); Calc. Creatinine Clearance 6 mL/min (70-130); Calcium 9.1 mg/dL (7.8-10.44); Carbon Dioxide 27 mmol/L (23-31); Chloride 97 mmol/L (98-107); Estimated GFR-MDRD 4; Glucose 120 mg/dL (80-115); Potassium 4.9 mmol/L (3.5-5.1); Sodium 138 mmol/L (136-145)
[2019-01-19 04:28] LABS: Troponin I 0.038 ng/mL (< 0.028)
[2019-01-19] MEDS: hydrALAZINE 20 MG/ML VIAL SLOW IVP PRN ×2 (06:37→21:29)
[2019-01-19] MEDS ORDERED: Dextrose 50% Abboject 50 ML SYRINGE SLOW IVP PRN (07:16)
[2019-01-19] MEDS ORDERED: Dextrose 5% in Water 1,000 ML IV PRN (07:16)
[2019-01-19] MEDS ORDERED: HumaLOG 300 UNITS/3 ML VIAL SC PRN ×2 (07:16)
[2019-01-19] MEDS: Calcium Acetate 667 MG CAP PO SCH ×3 (08:55→15:23)
[2019-01-19] MEDS: Cyanocobalamin (Vitamin B-12) 1,000 MCG TAB PO SCH (08:55)
[2019-01-19] MEDS: Famotidine 20 MG TAB PO SCH (08:55)
[2019-01-19] MEDS: Amlodipine 5 MG TAB PO SCH ×2 (08:55→20:29)
[2019-01-19] MEDS: Losartan 25 MG TAB PO SCH (08:55)
[2019-01-19] MEDS: Carvedilol 6.25 MG TAB PO SCH ×2 (08:55→20:29)
[2019-01-19] MEDS: Folic Acid 1 MG TAB PO SCH (08:56)
[2019-01-19] MEDS ORDERED: [UNRECOGNIZED DRUG - OTHER] PO SCH (09:00)
[2019-01-19] MEDS ORDERED: SELENOMETH PO SCH (09:00)
[2019-01-19] MEDS: hydrOXYzine 25 MG TAB PO SCH ×2 (09:00→20:30)
[2019-01-19] MEDS ORDERED: FOLIC PO SCH (09:00)
[2019-01-19] MEDS ORDERED: D3 PO SCH (09:00)
[2019-01-19] MEDS ORDERED: ZINC PO SCH (09:00)
[2019-01-19] MEDS: Folic Acid/Vit B Comp W-C PO SCH (09:00)
--- NOTE | 2019-01-19 09:27 | PRG ---
DATE OF SERVICE: 01/19/2019 Ms. Devi is resting comfortably this morning in the ICU. Her motor function has remained the same since last night, and she has had no recurrence of the paresthesias that brought her in initially. This is excellent news. Systolic pressures were in the mid 150s, which is reasonable. I believe we can go ahead and ICU today to the Stroke floor pending consultation from Dr. Villarreal and from the hospitalist service. We can start a renal diet as well for her. We will discuss with Dr. Kraus the timeline of next imaging. Job ID: [id number]
--- NOTE | 2019-01-19 09:59 | CON ---
DATE OF CONSULTATION: HISTORY OF PRESENT ILLNESS: Ms. Devi is a 68-year-old female with ESRD, on maintenance hemodialysis and admitted for complaints of right-sided facial tingling, numbness as well as some transient aphasia. This morning, she is neurologically intact. She is mentating well and conversing well. During the initial evaluation with a CT scan, it showed subdural hematoma. We are being consulted for maintenance hemodialysis. Our plan is to do her hemodialysis today without any heparin. REVIEW OF SYSTEMS: Positive for right facial numbness/tingling and tingling of both hands. No chest pain. No shortness of breath. No syncopal episode. No productive cough. No gross hematuria. No dysuria. No urinary frequency. No productive cough. No diarrhea. No constipation. No headache. No diplopia. No sore throat. No fever or chills. No hematochezia. No melena. MEDICATIONS: 1. Amlodipine 5 mg p.o. b.i.d. 2. Multivitamin daily. 3. Calcium acetate 3 tablets t.i.d. with meals. 4. Carvedilol 12.5 mg b.i.d. 5. Docusate 100 mg p.o. b.i.d. 6. Folic acid 1 mg p.o. daily. 7. Famotidine 20 mg tablet once a day. 8. Hydroxyzine 25 mg p.o. b.i.d. 9. Losartan 25 mg daily. 10. Zofran 4 mg IV b.i.d. p.r.n. PAST MEDICAL HISTORY: 1. Hypertension. 2. ESRD secondarily on chronic interstitial nephritis. 3. Failed peritoneal dialysis. 4. Type 2 diabetes mellitus. 5. Chronic low back pain. 6. Degenerative joint disease. 7. Chronic NSAID intake. PAST SURGICAL HISTORY: Status post cuffed hemodialysis catheter placement, status post PD catheter placement with subsequent removal, status post AV fistula placement, status post bladder suspension surgery, and status post cataract surgery. SOCIAL HISTORY: The patient lives in [place]. Lives with her . originally from [place]. Used to smoke one pack a day for 15 years. Education, primary grade in [place]. 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 Status post multiple blood transfusion. Several children. No alcohol. No IV drug abuse. FAMILY HISTORY: Positive family history of ESRD. ALLERGIES: NONE. TRAUMA: None. IMMUNIZATIONS: Up-to-date. HOSPITALIZATIONS: Please see past medical history. PHYSICAL EXAMINATION: VITAL SIGNS: Blood pressure is 169/60, heart rate 60, respiratory rate 13, and pulse ox 94%. GENERAL: She is awake, alert, comfortable, not in distress. SKIN: Adequate turgor. HEENT: Slightly pale conjunctivae. Anicteric sclerae. NECK: No neck mass. No carotid bruits. No JVD. CHEST: No deformities. LUNGS: Clear breath sounds. No wheezing. No crackles. HEART: Normal sinus rhythm. No murmur. No gallops. No rubs. ABDOMEN: Globular, soft, and nontender. No masses. EXTREMITIES: No edema. No deformities. NEUROLOGICAL: The patient is awake, oriented to 3 spheres. Able to move all extremities. No tremors. No asterixis. No ataxia. DIAGNOSTIC DATA: Laboratories of January 19, 2019; white count 8.4, hemoglobin 8.4. Sodium 138, potassium 4.9, chloride 97, carbon dioxide 27, BUN 85, creatinine 8.88, glucose 120, and calcium 9.1. CT scan of the brain on January 18, 2019, shows mixed density subdural hematoma overlying the left posterior frontal convexity with the dzkz-dx-xptoa midline shift. Chest x-ray of January 18, 2019, there is no overt CHF. ASSESSMENT AND PLAN: 1. End-stage renal disease - our plan is to continue hemodialysis regimen. Due to the subdural hematoma, we will hold off any heparin use with this patient. Fluid removal only as tolerated. Review of the last Kt/V suggests she is adequately dialyzed with the current dialysis regimen. Continue Friday, , and Friday dialysis. 2. Subdural hematoma - the patient is neurologically intact. Neurosurgery is following. Overall, agree with current management. Job ID: [id number]
[2019-01-19] MEDS ORDERED: Desmopressin Acetate 4 mcg/ml (1ml Chg) 10ml Vial SC SCH (11:45)
[2019-01-19 12:11] LABS: INR-International Normal Ratio 1.1; Prothrombin Time 14.3 SEC (12.0-14.7)
--- NOTE | 2019-01-19 12:12 | CON ---
DATE OF CONSULTATION: 01/19/2019 SERVICE: Pulmonary Medicine. REASON FOR CONSULTATION: ICU patient. HISTORY OF PRESENT ILLNESS: The patient is a 68-year-old female with past medical history significant for end-stage renal disease. Ultimately, she came to the hospital with a sudden onset of right-sided facial tingling and numbness with some degree of aphasia. She had some degree of weakness and also some right arm numbness. This occurred abruptly while she was taking a shower. She felt a little unstable on her feet. She presented to the emergency department, where she was discovered to have a wadpqbvj-uf-hloli size subdural hematoma in the left frontal convexity. She was tucked in the ICU for serial CT scans to make certain no surgical interventions are required. Neurosurgery has evaluated the patient. At this point, the numbness and tingling in the right upper extremity have improved significantly. She denies any current fevers, chills, nausea, or vomiting, and prior to this event, she was in her usual state of health. PAST MEDICAL HISTORY: 1. End-stage renal disease. 2. Type 2 diabetes mellitus. 3. Hypertension. 4. Dyslipidemia. 5. Hyperparathyroidism. 6. Uterine fibroids. PAST SURGICAL HISTORY: 1. Peritoneal dialysis catheter placement. 2. Upper extremity fistula placement. 3. Cataract surgery, bilateral. 4. Tubal ligation. 5. Bladder suspension. SOCIAL HISTORY: Negative for alcohol, tobacco, or illicit drug use. She has no exposure to chemicals, dust, asbestos, or tuberculosis. She lives at home with her family. FAMILY HISTORY: Noncontributory. ALLERGIES: NO KNOWN DRUG ALLERGIES. MEDICATIONS: List of her inpatient medications was reviewed. No specific updates were made at this time. REVIEW OF SYSTEMS: General; head, ears, eyes, nose, throat; cardiovascular; respiratory; GI; ; musculoskeletal; neurologic; and skin are negative except as mentioned in the HPI. PHYSICAL EXAMINATION: VITAL SIGNS: Afebrile, pulse 65, blood pressure 179/62, respirations 18, and saturation 96% currently on room air. GENERAL: The patient is awake and alert, in no apparent distress. LUNGS: Decent air entry. There is no prolonged expiratory phase or wheezing present. HEART: Normal rate and regular. ABDOMEN: Soft, nontender, and nondistended. Bowel sounds are positive. MUSCULOSKELETAL: No cyanosis or clubbing. There is no pitting edema. NEUROLOGIC: Grossly nonfocal. There may be some subtle weakness in the right upper extremity, but it is truthfully quite symmetric. Sensation was not tested. LABORATORY DATA: WBC 8.4, hemoglobin 8.4, and platelets 213,000. INR 1.3. Creatinine 8.88 and BUN 85. Basic metabolic profile is otherwise unremarkable. Troponin is gently up trending to 0.038. Liver function studies are unremarkable. IMAGIN. CT of the brain demonstrates [id number] subdural hematoma overlying the left frontal convexity with midline shift of 2 mm. 2. Chest x-ray demonstrates no acute cardiopulmonary abnormality. ASSESSMENT: 1. End-stage renal disease with uremia, on peritoneal dialysis. 2. Subdural hematoma with small amount of midline shift. 3. Hypertension. DISCUSSION AND PLAN: She is going to be watched in ICU very closely. I will give her a dose of DDAVP given her uremia. An INR will be checked. Pulmonary/Critical Care will continue to follow along in this location. Hopefully, she will not require surgical intervention. 70 minutes have been devoted to this patient in various activities. I personally reviewed all imaging studies and laboratory data noted within this document. For fifty percent of this time, I was interacting with the patient at the bedside or coordinating care with the care team. For the remainder of the time I was immediately available to the patient in the hospital unit. Job ID: [id number] MTDD
--- NOTE | 2019-01-19 13:45 | PRG ---
DATE OF SERVICE: 01/19/2019 Ms. Devi is a 68-year-old female, who presented to the ER with right-sided facial numbness and a very mild degree of aphasia. She also reported episodic right arm numbness. She was brought to the ER, where she underwent a CT examination of the head, which revealed a mixed density subdural hematoma over the left frontal convexity with effacement of the underlying gyri. The hematoma likely stems from an injury that she had back in September and she has had two CT scans prior to this one, which showed evidence for a subgaleal hematoma initially and subdural hygroma thereafter. She has medical comorbidities such as end-stage renal disease, for which she receives dialysis at least 3 times a week. She also has a known history of hypertension. At this time, her symptoms have stabilized. I have reviewed the note and findings as dictated by Nadeem Craven and agree with his assessment, which will be one of nonsurgical management currently. Her symptoms have resolved. Given her need for dialysis and heparinization, ideally, we would defer on any additional surgical intervention. Should her symptoms recur, we could move forward with luis carlos hole drainage of the subdural hematoma. Otherwise, we will treat this nonsurgically and will make appropriate outpatient followup. She will be seen by our Medicine colleagues and we have already consulted our colleagues in Critical Care as well as Nephrology. Job ID: [id number] [email or web address]
--- NOTE | 2019-01-19 14:13 | CON ---
DATE OF TELEMEDICINE CONSULTATION: 01/19/2019 CHIEF COMPLAINT: Fall and subdural hematoma. HISTORY OF PRESENT ILLNESS: History was obtained from daughter and son via telemedicine consultation and they interpreted for the patient. The patient has not been very active physically since her last hospitalization. She can take care of her day-to-day activities, but does not participate much in her work at home or chores at home. She fell back in September and had a bump on her head and was brought to the hospital at that time. Following the discharge, she has been somewhat less interested in day-to-day activities. Based on the evaluation at that time, I have reviewed the discharge note and the patient had uremia and Dr. Villarreal was seeing her and at that time, CT of the brain did not show any acute intracranial process and the patient has been known to have diabetes, hypertension, kidney problems, and son said she has been avoiding any social or family activities since this discharge , but yesterday they found that she was not normal. She went in the shower, dropped her soap, and she started to feel funny, got dressed, and later on, continued to feel weak in her arm and things were not right; therefore, they brought her to the hospital. There is no history of any seizures. PREVIOUS MEDICAL HISTORY: Includes diabetes, hypertension, renal problems. MEDICATIONS: At home, she takes; 1. Amlodipine. 2. Losartan. 3. Carvedilol. 4. Calcium. 5. Folic acid. 6. Hydroxyzine. 7. Famotidine. 8. B12. 9. Tylenol. SURGICAL HISTORY: Cataract surgery, dialysis shunt, tubal ligation, and bladder suspension surgery. ALLERGIES: NO KNOWN DRUG ALLERGIES. FAMILY HISTORY: The patient has no family history of seizures or difficulty with any history of kidney problems, but positive family history of hypertension and diabetes. REVIEW OF SYSTEMS: PULMONARY: Negative for cough or shortness of breath. OPHTHALMOLOGIC: Negative for any vision problems. DERMATOLOGIC: Negative for skin lesion. NEUROLOGICAL: Positive for weakness in the arm in the left side and numbness. RHEUMATOLOGICAL: Negative for any arthritis. ENDOCRINE: Positive for diabetes. METABOLIC: Positive for end-stage renal disease. LABORATORY DATA: White count 8.4, hemoglobin 8.4, hematocrit 25.2, platelet count 213. Chemistry; sodium 138, potassium 4.9, chloride 97, bicarb 27, BUN 85, creatinine 8.88, glucose 120. Troponin I 0.[address] of the head was reviewed. CT of the head shows mixed density subdural hematoma in the left posterior frontal convexity with [id number] midline shift, 2 mm size of hematoma is not specified in the report. PHYSICAL EXAMINATION: GENERAL APPEARANCE: Well-built, well-nourished lady, who seems to be comfortable. VITAL SIGNS: Blood pressure 161/55, pulse rate 59, respiratory rate 16, O2 sats 94. CHEST: Clear vesicular breathing. CARDIOVASCULAR: S1, S2 heard. She did have a systolic murmur. ABDOMEN: Soft. NEUROLOGIC: Higher intellectual functions; normal orientation to time, place, and person. Cranial nerves 2 through 12 normal facial sensation. Normal extraocular movements. Pupils were 2 mm, equal, reactive to light. Tongue midline. No atrophy noted. Normal elevation of palate. Normal hearing to finger rub bilaterally. Motor exam; bulk normal, tone normal. Strength 5/5 in upper extremities, but 4/ 5 in proximal lower extremities. Distally, it was 5/5 muscle groups tested in iliopsoas, hamstrings, quadriceps, ankle dorsiflexion, plantar flexion, deltoid, biceps, triceps, wrist extension and flexion, finger extension and flexion. Deep tendon reflexes were absent. Sensory normal to touch bilaterally in upper and lower extremities. Cerebellar normal [id number] and [id number]. IMPRESSION AND RECOMMENDATIONS: The patient is a 68-year-old lady with subdural hematoma of mixed density per nurse surgical note. No surgical intervention is planned at this time and medical plan is recommended, which is mostly watching her neurological status and making sure she does not have seizures or any other events. At this time, she seems to be neurologically intact, although there is mild confusion about the year, but she was able to answer the questions appropriately. Her examination is consistent with a stable patient. I do think she can recover spontaneously and no recommendations are made for seizure prophylaxis since it is not required at this time and the patient has no history of seizures. I do think she fell because of proximal muscle weakness. She might need full evaluation with EMG nerve conduction studies as outpatient for presence of any myopathy or neuropathy. This can be done by Dr. Galindo as outpatient. For now, please continue to observe her for any changes in neurological status. She might need rehab for few days. I will see her as needed. Job ID: [id number] EMELINA
[2019-01-19] MEDS ORDERED: Heparin 10,000 UNITS/1 ML VIAL ONE (15:00)
--- NOTE | 2019-01-19 18:22 | PDOC.HHP ---
Hospitalist HPI - History of Present Illness Facial numbness, right sided weakness, and confusion History of Present Illness: 68-year-old female with the past medical history of end-stage renal disease on hemodialysis and uncontrolled hypertension presents with acute onset of right- sided facial tingling, trouble speaking, right-sided arm weakness, and mild confusion. The patient was found to have moderate to large subdural hematoma at the left frontal area on CT scan of the brain. Patient admitted to the intensive care unit, neurosurgery consultation requested please see full consultation and progress notes for details. Neurosurgery recommending no surgical intervention at this time as the patient symptoms have resolved. Patient's family at bedside are able to aid in history. Patient does report a fall in September of this year in which she hit the back of her head, at that time the patient had imaging and did not demonstrate any intracranial bleeding. Patient has not had any seizure activity patient and family deny any episodes of spasticity movements, no loss of bowel or bladder function, she is not been her tongue. Patient does occasionally get confused, this has been worsening over the past several months, It is transient and goes away with time. Patient' s family tell me that she does not strictly control her blood pressures and they commonly see blood pressure readings in the 200 systolic even after dialysis. Neurology consultation requested to determine if antiepileptic drug as indicated in this patient. Hospitalist ROS - Review of Systems All other systems reviewed; all pertinent +/- noted in HPI/Subj - Medication Medications: Active Medications Generic Name Dose Route Start Last Admin Trade Name Freq PRN Reason Stop Dose Admin Amlodipine Besylate 5 mg 01/19/19 09:00 01/19/19 08:55 Norvasc PO 5 mg BID NIKOLAS Administration Calcium Acetate 2,668 mg 01/19/19 08:00 01/19/19 15:23 Phoslo PO 2,668 mg TID-WM NIKOLAS Administration Carvedilol 12.5 mg 01/19/19 09:00 01/19/19 08:55 Coreg PO 12.5 mg BID NIKOLAS Administration Cyanocobalamin 1,000 mcg 01/19/19 09:00 01/19/19 08:55 Vitamin B-12 PO 1,000 mcg DAILY NIKOLAS Administration Famotidine 20 mg 01/19/19 09:00 01/19/19 08:55 Pepcid PO 20 mg DAILY NIOKLAS Administration Folic Acid 1 mg 01/19/19 09:00 01/19/19 08:56 Folvite PO 1 mg DAILY NIKOLAS Administration Hydralazine HCl 5 mg 01/19/19 06:34 01/19/19 06:37 Apresoline SLOW IVP 5 mg Q30MIN PRN Administration SBP GREATER THAN 160 Hydroxyzine HCl 25 mg 01/19/19 09:00 01/19/19 09:00 Atarax PO 25 mg BID NIKOLAS Administration Labetalol HCl 10 mg 01/18/19 23:31 01/19/19 04:38 Normodyne SLOW IVP 10 mg Q4H PRN Administration SBP > 150 or DBP > 90 Losartan Potassium 25 mg 01/19/19 09:00 01/19/19 08:55 Cozaar PO 25 mg DAILY NIKOLAS Administration Sodium Chloride 10 ml 01/18/19 23:31 01/19/19 08:56 Flush - Normal Saline IVF 10 ml PRN PRN Administration Saline Flush Vitamin B Complex/Vit C/Folic Acid 1 tab 01/19/19 09:00 01/19/19 09:00 Nephro-Amor Tablet PO 1 tab DAILY NIKOLAS Administration Hospitalist History - Past Medical History Source: patient, family Cardiac: reports: HTN, Hyperlipidemia Pulmonary: reports: high cholesterol, hypertension Renal/: reports: Chronic renal failure Endocrine: reports: Diabetes - Past Surgical History Past Surgical History: reports: Cataract Removal, Tubal Ligation, Other ( Bladder surgery) - Family History Family History: reports: hypertension - Social History Smoking Status: Unknown if ever smoked Alcohol: reports: None Drugs: reports: none Living Situation: With Family Activity level: uses cane/walker - Exam General Appearance: NAD, awake alert Eye: PERRL, anicteric sclera ENT: normocephalic atraumatic, moist mucosa Neck: supple, symmetric Heart: no murmur, no gallops, no rubs Respiratory: CTAB, no wheezes, no rales, no ronchi Gastrointestinal: soft, non-tender, non-distended, no rigidity, voluntary guarding Extremities: no edema Skin: no lesions, no rashes Neurological: cranial nerve grossly intact, normal sensation to touch, no focal deficits. negative: facial droop, hemiplegia, speech deficit Musculoskeletal: generalized weakness Psychiatric: normal affect, A&O x 3 Hospitalist Results - Labs Result Diagrams: 01/19/19 03:51 01/19/19 03:51 Lab results: WBC 8.4 thou/uL (4.8-10.8) 01/19/19 03:51 Hgb 8.4 g/dL (12.0-16.0) L 01/19/19 03:51 Hct 25.2 % (36.0-47.0) L 01/19/19 03:51 MCV 86.0 fL (78.0-98.0) 01/19/19 03:51 Plt Count 213 thou/uL (130-400) 01/19/19 03:51 Neutrophils % 62.1 % (42.0-75.0) 01/19/19 03:51 Sodium 138 mmol/L (136-145) 01/19/19 03:51 Potassium 4.9 mmol/L (3.5-5.1) 01/19/19 03:51 Chloride 97 mmol/L (98-107) L 01/19/19 03:51 Carbon Dioxide 27 mmol/L (23-31) 01/19/19 03:51 BUN 85 mg/dL (9.8-20.1) H 01/19/19 03:51 Creatinine 8.88 mg/dL (0.6-1.1) H 01/19/19 03:51 Glucose 120 mg/dL (80-115) H 01/19/19 03:51 Calcium 9.1 mg/dL (7.8-10.44) 01/19/19 03:51 Total Bilirubin 0.7 mg/dL (0.2-1.2) 01/18/19 21:41 AST 18 U/L (5-34) 01/18/19 21:41 ALT 8 U/L (8-55) 01/18/19 21:41 Alkaline Phosphatase 62 U/L (40-110) 01/18/19 21:41 CK-MB (CK-2) 1.3 ng/mL (0-6.6) 01/18/19 21:41 Troponin I 0.038 ng/mL (< 0.028) H 01/19/19 03:51 Serum Total Protein 7.8 g/dL (6.0-8.3) 01/18/19 21:41 Albumin 4.0 g/dL (3.4-4.8) 01/18/19 21:41 - Radiology Interpretation CT scan - head Status: image reviewed by me Hospitalist H&P A/P - Problem (1) Traumatic subdural haematoma w/brief coma Code(s): [id number] - Status: Acute (2) Uncontrolled hypertension Code(s): I10 - ESSENTIAL (PRIMARY) HYPERTENSION Status: Acute (3) Ataxia Code(s): R27.0 - ATAXIA, UNSPECIFIED Status: Acute (4) Weakness Code(s): R53.1 - WEAKNESS Status: Acute (5) ESRD (end stage renal disease) Code(s): N18.6 - END STAGE RENAL DISEASE Status: Chronic (6) Encephalopathy acute Code(s): G93.40 - ENCEPHALOPATHY, UNSPECIFIED Status: Resolved - Plan Plan: Plan: Intensive care unit neurosurgery consultation, recommendations appreciated neurology consultation, recommendations appreciated pulmonary/critical-care consultation, recommendations appreciated nephrology consultation, recommendations appreciated medical management alone at this time, neurosurgery has determined that the patient will not require any surgical intervention at this time antiepileptic drug, if needed per neurology/neurosurgery No seizure activity noted prior to or since admission repeat CT scan of the brain Friday morning per neurosurgery will need continued monitoring with imaging in the outpatient setting blood pressure control hemodialysis per nephrology physical therapy consultation, evaluation and treatment occupational Therapy consultation, evaluation and treatment speech therapy consultation, evaluation and treatment patient's neurologic symptoms have resolved on my physical examination this a.m. pending patient's functional status she may need a short course of rehabilitation placement continue other home medications as able replace electrolytes as needed
[2019-01-20] MEDS: hydrALAZINE 20 MG/ML VIAL SLOW IVP PRN (04:05)
[2019-01-20] MEDS: Calcium Acetate 667 MG CAP PO SCH ×3 (07:52→17:03)
[2019-01-20] MEDS: Amlodipine 5 MG TAB PO SCH ×2 (08:31→21:06)
[2019-01-20] MEDS: Cyanocobalamin (Vitamin B-12) 1,000 MCG TAB PO SCH (08:31)
[2019-01-20] MEDS: hydrOXYzine 25 MG TAB PO SCH ×2 (08:31→21:07)
[2019-01-20] MEDS: Carvedilol 6.25 MG TAB PO SCH ×2 (08:32→21:07)
[2019-01-20] MEDS: Famotidine 20 MG TAB PO SCH (08:32)
[2019-01-20] MEDS: Losartan 25 MG TAB PO SCH (08:32)
[2019-01-20] MEDS: Folic Acid/Vit B Comp W-C PO SCH (08:32)
[2019-01-20] MEDS: Folic Acid 1 MG TAB PO SCH (08:32)
[2019-01-20] MEDS ORDERED: EPOETIN ALFA-EPBX (ESRD) 4,000 UNIT/ML VIAL SC SCH (09:00)
--- NOTE | 2019-01-20 09:17 | PRG ---
DATE OF SERVICE: 01/20/2019 SUBJECTIVE: Ms. Devi is a 68-year-old female, who was admitted for transient aphasia with right arm numbness. She was found to have a mixed density subdural hematoma over the left frontal convexity. She has been evaluated by Neurosurgery. Since her symptoms have stabilized, the recommendation is simply to observe her. Repeat imaging of the head has been ordered today. We are following up this patient for maintenance hemodialysis. She underwent hemodialysis yesterday without any difficulty. Due to the subdural hematoma, no heparin was used. This morning, she voices no new complaints. OBJECTIVE: VITAL SIGNS: Blood pressure 163/63, heart rate 68, respiratory rate is 34, and O2 saturation 97%. GENERAL: Awake, alert, comfortable, not in distress. SKIN: Adequate turgor. HEENT: Slightly pale conjunctivae. Anicteric sclerae. NECK: No neck mass. No carotid bruits. No JVD. CHEST: No deformities. LUNGS: Clear breath sounds. HEART: Normal sinus rhythm. No murmur. No gallops. No rubs. ABDOMEN: Globular, soft, nontender. No masses. EXTREMITIES: No edema. No deformities. MEDICATIONS: Medications of January 20, 2019, was reviewed. LABORATORY DATA: January 19, 2019; white count 8.4, hemoglobin 8.4, sodium 138, potassium 4.9, chloride 97, carbon dioxide 27, BUN 85, and creatinine 8.88. ASSESSMENT AND PLAN: 1. End-stage renal disease, stable we. Will continue current Friday, , and Friday hemodialysis with this patient. Fluid removal only as tolerated. We are using no heparin due to the recent subdural hematoma. 2. Anemia, continue to observe. We will probably start Epogen 7500 units subcutaneous daily. 3. Subdural hematoma. Conservative management. Neurosurgery is following. 4. Recheck CBC and basic metabolic panel in a.m. Job ID: [id number]
[2019-01-20] MEDS ORDERED: Losartan 25 MG TAB PO SCH (09:30)
--- NOTE | 2019-01-20 10:01 | PRG ---
DATE OF SERVICE: 01/20/2019 Ms. Devi is resting comfortably in the ICU. I met with her and family today. The family interpreted on her behalf given she is Kinyarwanda speaking. She denies any numbness that she had when she presented. Her speech is back to normal and fluent. She has no subjective sense of weakness either. She does report a mild degree of headache, which would be expected given the intracranial findings. I explained to her and family members present that the plan is one of nonoperative management. Should her symptoms recur or worsen, we could re-evaluate with both imaging and consideration for a luis carlos hole drainage of the mixed density subdural hematoma. She is currently being evaluated by our colleagues and Critical Care, Nephrology, and Medicine. Our plan today is to transition care over to the medicine service for additional management and disposition planning. From a neurosurgical perspective, she does not need to be in the ICU. Job ID: [id number]
[2019-01-20] MEDS: hydrALAZINE 25 MG TAB PO SCH ×3 (10:13→21:07)
--- NOTE | 2019-01-20 12:21 | RAD ---
LEFT HIP 2 VIEWS AP PELVIS 1 VIEW: Date: 01/20/19 HISTORY: Hip pain. FINDINGS: Mild joint space narrowing and osteophytosis. Femoral head contour is maintained. No acute fracture o r dislocation. Sacrum and upper pelvis are obscured by bowel content. Osseous structures are diffusel y demineralized. Prominent calcification over the arterial structures. Oval densely calcified lesion over the right mid abdomen. Stable compared to prior CT. IMPRESSION: 1. Mild osteoarthritic changes. No acute osseous abnormalities are demonstrated. 2. Osteoporosis. 3. Atherosclerosis. POS: TPC
--- NOTE | 2019-01-20 16:30 | PDOC.HOSPP ---
- Subjective Subjective: Seen and examined. Neurologic symptoms have resolved. Neurosurgery recommending no surgical intervention. No antiepileptic drug recommended for neurosurgery or neurology. No seizure activity. Patient's only complaint this morning is left hip discomfort from prior fall. I ordered a plain film of the hip, and reviewed this film and there is no acute fracture. There are chronic osteoarthritic changes. - Objective Vital Signs & Weight: Vital Signs (12 hours) Pulse Pulse Pulse BP BP BP Pulse Ox 01/20/19 14:56 65 162/61 H 01/20/19 13:36 94 89 162/61 H 147/60 H 01/20/19 10:13 65 163/63 H 01/20/19 08:32 163/63 H 01/20/19 08:31 66 163/63 H 01/20/19 07:09 98 Weight Admit Weight 126 lb 1.671 oz Weight 130 lb 8.218 oz Most Recent Monitor Data Heart Rate from ECG 63 NIBP 161/60 NIBP BP-Mean 93 Respiration from ECG 22 SpO2 96 I&O: 01/19/19 01/20/19 01/21/19 06:59 06:59 06:59 Intake Total 12 360 480 Output Total 0 0 Balance 12 360 480 Result Diagrams: 01/19/19 03:51 01/19/19 03:51 Additional Labs: Accuchecks 01/20/19 01/20/19 01/20/19 16:03 10:55 05:55 POC Glucose 114 H 91 95 01/19/19 20:32 POC Glucose 114 H Radiology Reviewed by me: Yes (Hip Xray) Hospitalist ROS - Review of Systems All other systems reviewed; all pertinent +/- noted in HPI/Subj - Medication Medications: Active Medications Generic Name Dose Route Start Last Admin Trade Name Freq PRN Reason Stop Dose Admin Amlodipine Besylate 5 mg 01/19/19 09:00 01/20/19 08:31 Norvasc PO 5 mg BID NIKOLAS Administration Calcium Acetate 2,668 mg 01/19/19 08:00 01/20/19 11:33 Phoslo PO 2,668 mg TID-WM NIKOLAS Administration Carvedilol 12.5 mg 01/19/19 09:00 01/20/19 08:32 Coreg PO 12.5 mg BID NIKOLAS Administration Cyanocobalamin 1,000 mcg 01/19/19 09:00 01/20/19 08:31 Vitamin B-12 PO 1,000 mcg DAILY NIKOLAS Administration Epoetin Edson-epbx 7,500 unit 01/20/19 09:00 01/20/19 10:31 Retacrit SC 7,500 unit Q7D NIKOLAS Administration Famotidine 20 mg 01/19/19 09:00 01/20/19 08:32 Pepcid PO 20 mg DAILY NIKOLAS Administration Folic Acid 1 mg 01/19/19 09:00 01/20/19 08:32 Folvite PO 1 mg DAILY NIKOLAS Administration Hydralazine HCl 5 mg 01/19/19 06:34 01/20/19 04:05 Apresoline SLOW IVP 5 mg Q30MIN PRN Administration SBP GREATER THAN 160 Hydralazine HCl 25 mg 01/20/19 09:00 01/20/19 14:56 Apresoline PO 25 mg TID NIKOLAS Administration Hydroxyzine HCl 25 mg 01/19/19 09:00 01/20/19 08:31 Atarax PO 25 mg BID NIKOLAS Administration Labetalol HCl 10 mg 01/18/19 23:31 01/19/19 19:02 Normodyne SLOW IVP 10 mg Q4H PRN Administration SBP > 150 or DBP > 90 Sodium Chloride 10 ml 01/18/19 23:31 01/20/19 08:32 Flush - Normal Saline IVF 10 ml PRN PRN Administration Saline Flush Vitamin B Complex/Vit C/Folic Acid 1 tab 01/19/19 09:00 01/20/19 08:32 Nephro-Amor Tablet PO 1 tab DAILY NIKOLAS Administration - Exam General Appearance: NAD, awake alert Eye: anicteric sclera ENT: normocephalic atraumatic, moist mucosa Neck: supple, symmetric, no lymphadenopathy Heart: no murmur, no gallops, no rubs Respiratory: CTAB, no wheezes, no rales, no ronchi Gastrointestinal: soft, non-tender, no palpable masses, no guarding, no rigidity Extremities: no edema Skin: no lesions, no rashes Neurological: cranial nerve grossly intact, normal sensation to touch, no focal deficits. negative: vision deficit Musculoskeletal: generalized weakness Psychiatric: normal affect, A&O x 3 Hosp A/P (1) Traumatic subdural haematoma w/brief coma Code(s): GBX8192 - Status: Acute (2) Uncontrolled hypertension Code(s): I10 - ESSENTIAL (PRIMARY) HYPERTENSION Status: Acute (3) Ataxia Code(s): R27.0 - ATAXIA, UNSPECIFIED Status: Acute (4) Weakness Code(s): R53.1 - WEAKNESS Status: Acute (5) ESRD (end stage renal disease) Code(s): N18.6 - END STAGE RENAL DISEASE Status: Chronic (6) Encephalopathy acute Code(s): G93.40 - ENCEPHALOPATHY, UNSPECIFIED Status: Resolved - Plan Plan: intensive care unit, stable for downgrade to medical unit neurosurgery consultation, recommendations appreciated neurology consultation, recommendations appreciated pulmonology/ critical-care consultation, recommendations appreciated nephrology consultation, recommendations appreciated neurosurgery recommending no acute surgical intervention at this time neurosurgery/ neurology recommending recommending no antiepileptic drug no seizure activity noted prior to or since admission repeat imaging of the head, if indicated per neurology/neurosurgery outpatient CT scan of the head will be needed adjusted blood pressure medications hemodialysis per nephrology PT/OT evaluation and treatment patient's neurologic symptoms have resolved may benefit from subacute placement for a short period to regain her independence continue other home medications as able Plain film of the hip does not demonstrate any acute fracture, mild arthritis replace electrolytes as needed
[2019-01-21 06:02] LABS: #Eosinphils 0.3 thou/uL (0.0-0.7); #Lymphocytes 1.7 thou/uL (1.20-3.40); #Monocytes 0.8 thou/uL (0.11-0.59); #Neutrophils 4.6 thou/uL (1.40-6.50); %Basophils 0.5 % (0.0-1.0); %Eosinophils 4.2 % (0.0-10.0); %Lymphocytes 22.8 % (21.0-51.0); %Monocytes 10.4 % (0.0-10.0); %Neutrophils 62.2 % (42.0-75.0); Hemoglobin 9.2 g/dL (12.0-16.0); Mean Corpuscular HGB CONC 33.4 g/dL (32.0-36.0); Mean Corpuscular Hemoglobin 28.3 pg (27.0-31.0); Platelet Count 230 thou/uL (130-400); RBC Distribution Width 15.5 % (11.5-14.5); Red Blood Cell (RBC) Count 3.24 mill/uL (4.20-5.40); White Blood Cell (WBC) Count 7.4 thou/uL (4.8-10.8)
[2019-01-21 06:10] VITALS: BMI 21.7
[2019-01-21 06:19] LABS: Anion Gap 18 mmol/L (10-20); BUN (Urea Nitrogen) 55 mg/dL (9.8-20.1); Calc. Creatinine Clearance 6 mL/min (70-130); Calcium 9.3 mg/dL (7.8-10.44); Carbon Dioxide 26 mmol/L (23-31); Chloride 96 mmol/L (98-107); Estimated GFR-MDRD 5; Glucose 83 mg/dL (80-115); Potassium 5.1 mmol/L (3.5-5.1); Sodium 135 mmol/L (136-145)
[2019-01-21] MEDS: Calcium Acetate 667 MG CAP PO SCH ×3 (07:42→17:36)
--- NOTE | 2019-01-21 08:37 | PRG ---
DATE OF SERVICE: 01/20/2019 Ms. Devi VITAL SIGNS: Heart rate is in the 60s, blood pressure LUNGS: Clear. HEART: Regular rhythm. ABDOMEN: Soft. LABORATORY DATA: No new lab today other than blood glucoses. She had a hip x-ray showed no clear obvious fracture. IMPRESSION: 1. End-stage renal disease. 2. Subdural hematoma. 3. Anemia of chronic disease. I would think stable to move out of the Critical Care Unit . Job ID: [id number]
[2019-01-21] MEDS: hydrALAZINE 25 MG TAB PO SCH ×3 (08:58→20:47)
[2019-01-21] MEDS: Amlodipine 5 MG TAB PO SCH ×2 (08:59→20:46)
[2019-01-21] MEDS: hydrOXYzine 25 MG TAB PO SCH ×2 (08:59→20:48)
[2019-01-21] MEDS: Famotidine 20 MG TAB PO SCH (09:00)
[2019-01-21] MEDS: Cyanocobalamin (Vitamin B-12) 1,000 MCG TAB PO SCH (09:00)
[2019-01-21] MEDS: Folic Acid 1 MG TAB PO SCH (09:00)
[2019-01-21] MEDS: Losartan 25 MG TAB PO SCH (09:01)
[2019-01-21] MEDS: Acetaminophen 325 MG TAB PO PRN ×2 (09:02→20:51)
[2019-01-21] MEDS: Folic Acid/Vit B Comp W-C PO SCH (09:02)
[2019-01-21] MEDS: Carvedilol 6.25 MG TAB PO SCH ×2 (09:02→20:47)
--- NOTE | 2019-01-21 09:33 | PRG ---
DATE OF SERVICE: 01/21/2019 SUBJECTIVE: Ms. Devi is a 68-year-old female with ESRD - on maintenance hemodialysis, was admitted for subdural hematoma. She has been evaluated by Neurosurgery. Conservative management was recommended. No indication for any cranial surgery for this patient. This morning, she voices no new complaints. She is ambulating well. No chest pain or shortness of breath. OBJECTIVE: VITAL SIGNS: Blood pressure 176/68, heart rate 63, respiratory rate 18, O2 saturation 97%. GENERAL: Awake, alert, comfortable, not in distress. SKIN: Adequate turgor. HEENT: Slightly pale conjunctivae. Anicteric sclerae. NECK: No neck mass. No carotid bruits. No JVD. CHEST: No deformities. LUNGS: Clear breath sounds. HEART: Normal sinus rhythm. No murmur. No gallops. No rubs. ABDOMEN: Globular, soft, nontender. No masses. EXTREMITIES: No edema. No deformities. NEUROLOGICAL: Oriented to 3 spheres. Moving all extremities. No tremors. No asterixis. MEDICATIONS: Medications of January 21, 2019, reviewed. LABORATORY DATA: January 21, 2019; white count 7.4, hemoglobin 9.2, sodium 135, potassium 5.1, chloride 96, carbon dioxide 26, BUN 55, creatinine 7.91, and calcium 9.3. ASSESSMENT AND PLAN: 1. End stage renal disease, stable. We will continue current hemodialysis regimen. Using heparin free hemodialysis due to recent subdural hematoma. Continue supportive care. Fluid removal only as tolerated. 2. Anemia, Epogen - weekly dose was initiated. 3. Subdural hematoma, asymptomatic. Conservative management. No indication for any brain surgery. 4. Agree with current management. Job ID: [id number]
[2019-01-21] MEDS ORDERED: Heparin 10,000 UNITS/ 10 ML VIAL ONE (10:00)
--- NOTE | 2019-01-21 15:07 | PDOC.HOSPP ---
- Subjective Subjective: Seen and examined. Continues to clinically improved. Neurologic symptoms resolved. Mental status clear. Ambulating with physical therapy and occupational therapy has significantly improved since admission. Blood pressure control issues. Dialysis per nephrology. Overall progressing. - Objective Vital Signs & Weight: Vital Signs (12 hours) Temp Pulse Pulse Pulse BP BP BP 01/21/19 14:19 66 161/52 H 01/21/19 12:00 98.4 F 01/21/19 09:02 176/68 H 01/21/19 08:59 60 176/68 H 01/21/19 08:58 59 L 176/68 H 01/21/19 08:25 62 62 176/68 H 162/56 H 01/21/19 07:21 Pulse Ox Pulse Ox Pulse Ox 01/21/19 14:19 01/21/19 12:00 01/21/19 09:02 01/21/19 08:59 01/21/19 08:58 01/21/19 08:25 100 99 01/21/19 07:21 97 Weight Admit Weight 126 lb 1.671 oz Weight 119 lb 0.794 oz Most Recent Monitor Data Heart Rate from ECG 60 NIBP 163/55 NIBP BP-Mean 91 Respiration from ECG 21 SpO2 97 I&O: 01/20/19 01/21/19 01/22/19 06:59 06:59 06:59 Intake Total 360 720 480 Output Total 0 0 0 Balance 360 720 480 Result Diagrams: 01/21/19 05:40 01/21/19 05:40 Additional Labs: Accuchecks 01/21/19 01/20/19 01/20/19 05:46 21:08 16:03 POC Glucose 89 90 114 H Radiology Reviewed by me: Yes (Hip Xray) Hospitalist ROS - Review of Systems All other systems reviewed; all pertinent +/- noted in HPI/Subj - Medication Medications: Active Medications Generic Name Dose Route Start Last Admin Trade Name Freq PRN Reason Stop Dose Admin Acetaminophen 650 mg 01/18/19 23:31 01/21/19 09:02 Tylenol PO 650 mg Q6H PRN Administration Fever > 101 or Headache Amlodipine Besylate 5 mg 01/19/19 09:00 01/21/19 08:59 Norvasc PO 5 mg BID NIKOLAS Administration Calcium Acetate 2,668 mg 01/19/19 08:00 01/21/19 11:43 Phoslo PO 2,668 mg TID-WM NIKOLAS Administration Carvedilol 12.5 mg 01/19/19 09:00 01/21/19 09:02 Coreg PO 12.5 mg BID NIKOLAS Administration Cyanocobalamin 1,000 mcg 01/19/19 09:00 01/21/19 09:00 Vitamin B-12 PO 1,000 mcg DAILY NIKOLAS Administration Epoetin Edson-epbx 7,500 unit 01/20/19 09:00 01/20/19 10:31 Retacrit SC 7,500 unit Q7D NIKOLAS Administration Famotidine 20 mg 01/19/19 09:00 01/21/19 09:00 Pepcid PO 20 mg DAILY NIKOLAS Administration Folic Acid 1 mg 01/19/19 09:00 01/21/19 09:00 Folvite PO 1 mg DAILY NIKOLAS Administration Hydralazine HCl 5 mg 01/19/19 06:34 01/20/19 04:05 Apresoline SLOW IVP 5 mg Q30MIN PRN Administration SBP GREATER THAN 160 Hydralazine HCl 25 mg 01/20/19 09:00 01/21/19 14:19 Apresoline PO 25 mg TID NIKOLAS Administration Hydroxyzine HCl 25 mg 01/19/19 09:00 01/21/19 08:59 Atarax PO 25 mg BID NIKOLAS Administration Labetalol HCl 10 mg 01/18/19 23:31 01/19/19 19:02 Normodyne SLOW IVP 10 mg Q4H PRN Administration SBP > 150 or DBP > 90 Losartan Potassium 50 mg 01/21/19 09:00 01/21/19 09:01 Cozaar PO 50 mg DAILY NIKOLAS Administration Sodium Chloride 10 ml 01/18/19 23:31 01/20/19 08:32 Flush - Normal Saline IVF 10 ml PRN PRN Administration Saline Flush Vitamin B Complex/Vit C/Folic Acid 1 tab 01/19/19 09:00 01/21/19 09:02 Nephro-Amor Tablet PO 1 tab DAILY NIKOLAS Administration - Exam General Appearance: NAD, awake alert Eye: anicteric sclera ENT: normocephalic atraumatic, moist mucosa Neck: supple, symmetric, no lymphadenopathy Heart: no murmur, no gallops, no rubs Respiratory: CTAB, no wheezes, no rales, no ronchi Gastrointestinal: soft, non-tender, no guarding, no rigidity Extremities: no clubbing, no edema Skin: no lesions, no rashes Neurological: cranial nerve grossly intact, normal sensation to touch, no focal deficits Musculoskeletal: generalized weakness Psychiatric: normal affect, A&O x 3 Hosp A/P (1) Traumatic subdural haematoma w/brief coma Code(s): SDU0233 - Status: Acute (2) Uncontrolled hypertension Code(s): I10 - ESSENTIAL (PRIMARY) HYPERTENSION Status: Acute (3) Ataxia Code(s): R27.0 - ATAXIA, UNSPECIFIED Status: Acute (4) Weakness Code(s): R53.1 - WEAKNESS Status: Acute (5) ESRD (end stage renal disease) Code(s): N18.6 - END STAGE RENAL DISEASE Status: Chronic (6) Encephalopathy acute Code(s): G93.40 - ENCEPHALOPATHY, UNSPECIFIED Status: Resolved - Plan Plan: intensive care unit, stable for downgrade to medical unit neurosurgery consultation, recommendations appreciated neurology consultation, recommendations appreciated pulmonology/ critical-care consultation, recommendations appreciated nephrology consultation, recommendations appreciated neurosurgery recommending no acute surgical intervention at this time neurosurgery/ neurology recommending recommending no antiepileptic drug no seizure activity noted prior to or since admission repeat imaging of the head, if indicated per neurology/neurosurgery outpatient CT scan of the head will be needed No anticoagulation, NSAIDs, ASA adjusted blood pressure medications hemodialysis per nephrology PT/OT evaluation and treatment patient's neurologic symptoms have resolved may benefit from subacute placement for a short period to regain her independence continue other home medications as able Plain film of the hip does not demonstrate any acute fracture, mild arthritis replace electrolytes as needed
[2019-01-22] MEDS: Calcium Acetate 667 MG CAP PO SCH ×2 (07:43→14:44)
--- NOTE | 2019-01-22 09:22 | PRG ---
DATE OF SERVICE: 01/22/2019 SERVICE: Renal Medicine. SUBJECTIVE: Ms. Devi is a 68-year-old female with ESRD and followed up by the Renal Service for her maintenance hemodialysis. She underwent a heparin-free hemodialysis. She was initially admitted for subdural hematoma. Neurosurgery has evaluated this patient and recommendation is supportive care with no surgical intervention. This morning, she is feeling better. No chest pain or shortness of breath. OBJECTIVE: VITAL SIGNS: Blood pressure 148/62, heart rate 61, respiratory rate 12, temperature 98.5, and pulse ox 95%. GENERAL: Awake, alert, comfortable, not in distress. SKIN: Adequate turgor. HEENT: Pinkish conjunctivae. Anicteric sclerae. NECK: No neck mass. No carotid bruits. No JVD. CHEST: No deformities. LUNGS: Clear breath sounds. HEART: Normal sinus rhythm. No murmurs. No gallops. No rubs. ABDOMEN: Globular, soft, and nontender. No masses. EXTREMITIES: No edema. NEUROLOGICAL: Oriented to 3 spheres. Moving all extremities. No tremors. No asterixis. MEDICATIONS: Medications of January 22, 2019, reviewed. LABORATORY DATA: Laboratories of January 21, 2019; white count 7.4, hemoglobin 9.2. Sodium 135, potassium 5.1, chloride 96, carbon dioxide 26, BUN 55, creatinine 7.91, glucose 83, and calcium 9.3. ASSESSMENT AND PLAN: 1. End-stage renal disease, stable. No indication for an emergent hemodialysis today. She tolerated said dialysis yesterday without any difficulty. We are currently using no heparin with the current dialysis regimen. 2. Subdural hematoma, stable. Continue supportive care. No surgical intervention. 3. Anemia. Continuing Epogen regimen. Agree with planned discharge. Job ID: [id number]
[2019-01-22] MEDS: Amlodipine 5 MG TAB PO SCH (09:47)
[2019-01-22] MEDS: Carvedilol 6.25 MG TAB PO SCH (09:48)
[2019-01-22] MEDS: Folic Acid 1 MG TAB PO SCH (09:49)
[2019-01-22] MEDS: Folic Acid/Vit B Comp W-C PO SCH (09:49)
[2019-01-22] MEDS: Famotidine 20 MG TAB PO SCH (09:50)
[2019-01-22] MEDS: Losartan 25 MG TAB PO SCH (09:51)
[2019-01-22] MEDS: hydrALAZINE 25 MG TAB PO SCH ×2 (09:51→14:44)
[2019-01-22] MEDS: Cyanocobalamin (Vitamin B-12) 1,000 MCG TAB PO SCH (09:52)
[2019-01-22] MEDS: hydrOXYzine 25 MG TAB PO SCH (09:52)
[2019-01-22 12:06] VITALS: TEMP 98.6
[2019-01-22 17:31] VITALS: BP 172/66
--- NOTE | 2019-01-22 22:31 | DIS ---
DATE OF ADMISSION: 01/18/2019 DATE OF DISCHARGE: 01/22/2019 REASON FOR HOSPITALIZATION: Subdural hematoma. SIGNIFICANT FINDINGS: The patient was found to have significant subdural hematoma on CT scan of the brain-please see full report for details-impression mixed density subdural hematoma overlying the left posterior frontal convexity with left right midline shift of 2 mm. The patient was admitted to the intensive care unit, the patient was seen and evaluated by Neurology, Neurosurgery, and Critical Care physician-please see full report for details. PROCEDURES PERFORMED AND TREATMENTS RENDERED: The patient had maximum medical therapy for subdural hematoma including the patient being seen by Pulmonology/Critical Care, Neurosurgery, Neurology, and Nephrology-please see full consultation and progress notes for details. The patient is recommended safe for discharge by all specialists on 01/22/2019. CONDITION ON DISCHARGE: Stable. SPECIFIC INSTRUCTIONS FOR THE PATIENT/FAMILY: 1. The patient is recommended to take all medications as directed, to be re-evaluated by primary care physician and Nephrology in the outpatient setting in the next 1 to 2 weeks. 2. The patient is recommended to follow up with primary care physician in the next 1 to 2 weeks. 3. The patient is recommended to follow up with Nephrology in the outpatient setting for hemodialysis in the next 1 to 2 days. 4. The patient is recommended to return to acute care hospital immediately if signs or symptoms return, worsen, or any other new symptoms occur. 5. The patient is recommended to not take any anticoagulation medications and was explicitly informed to not take any aspirin, Motrin, naproxen, Aleve, or any other nonsteroidal anti-inflammatory drugs as these can worsen intracranial bleeding. The patient and her acknowledged these risks and were explicitly told to only take Tylenol if she is having any pain. They repeated these words to me and understand the reason on why they are not recommended to take any of these medications. DISCHARGE MEDICATIONS: Please see full discharge medication list for details, as there was no changes aside from blood pressure medications. 1. Hydralazine 25 mg one tablet p.o. t.i.d. 2. Losartan 50 mg one tablet p.o. daily. 3. Renvela 800 mg one tablet p.o. t.i.d. 4. Famotidine 20 mg one tablet p.o. daily. 5. Vitamin B12 of 1000 mcg one tablet p.o. daily. 6. Multivitamin one tablet p.o. daily. 7. Hydroxyzine 25 mg one tablet p.o. b.i.d. p.r.n. anxiety. 8. Folic acid 1 mg one tablet p.o. daily. 9. Calcium acetate 4 capsules p.o. t.i.d. 10. Carvedilol 12.5 mg one tablet p.o. b.i.d. 11. Amlodipine 5 mg one tablet p.o. b.i.d. 12. Tylenol regular strength 650 mg p.o. q.6 hours p.r.n. pain or fever. HOSPITAL COURSE: Ms. Devi is a very pleasant 68-year-old female who presented to [facility] on 01/18/2019, with stroke-like symptoms including right-sided weakness and tingling in addition to confusion. The patient was found to have subdural hematoma and was admitted to the intensive care unit, please see full history and physical, consultation notes and progress notes from Pulmonary/Critical Care, Neurosurgery, and Neurology for full details. The patient was observed and over the course of her hospitalization, her neurologic symptoms resolved. Neurosurgery recommending no surgical intervention for this patient as her neuro symptoms have resolved. Neurology and Neurosurgery recommending no antiepileptic drug for this patient. The patient has had no seizure type activity prior to admission to the hospital and throughout her whole hospital course, she did not have any seizure activity. The patient with end-stage renal disease, on hemodialysis. Had hemodialysis appropriately by social service director-please see full consultation and progress notes for details. The patient had blood pressure medications adjusted appropriately by myself and Nephrology. The patient is recommended safe for discharge by all specialists on 01/22/2019, with close followup in the outpatient setting. The patient is recommended to abstain from any anticoagulation and was explicitly informed to not take any [id number] medications that may worsen her bleeding including but not limited to aspirin, Motrin, ibuprofen, naproxen, Aleve, or any other nonsteroidal anti-inflammatory drugs. I explicitly informed the patient and her at bedside that the only medication she can take for pain or fever will be Tylenol and they both repeated this to me without problems. They understand the reason on why she is not to take any other nonsteroidal anti-inflammatory drugs. The patient is recommended to follow up with Neurosurgery in the outpatient clinic and will have CT scan of the brain in the outpatient setting in the upcoming weeks. The patient is recommended to follow up with primary care physician, Neurosurgery, and Nephrology in the outpatient setting at upcoming appointments. The patient is recommended to follow up with hemodialysis clinic in the next 1 to 2 days for her regular scheduled hemodialysis sessions. The patient is recommended to take all other medications as directed, to be re-evaluated by primary care physician and Nephrology. The patient is recommended to follow up with primary care physician in the next 5 to 7 days. The patient is recommended to return to acute care hospital immediately if signs or symptoms return, worsen, or any other new symptoms occur. TIME SPENT: Greater than 40 minutes spent coordinating care and discharge process for this patient. Job ID: [id number]
== END 2019-01-22 14:54 | disposition home health service (06) | DRG 82 ==
LOC: ERS 21:23 → CCU 22:00 → 2SE 01-21 19:28
PROVIDERS: ADMIT Neurological Surgery; ATTEND Internal Medicine
DX: S06.5X9A Traumatic subdural hemorrhage with loss of consciousness of unspecified duration, initial encounter (principal); N18.6 End stage renal disease; I12.0 Hypertensive chronic kidney disease with stage 5 chronic kidney disease or end stage renal disease; G93.40 Encephalopathy, unspecified; R47.01 Aphasia; E11.22 Type 2 diabetes mellitus with diabetic chronic kidney disease; R20.2 Paresthesia of skin; R29.701 NIHSS score 1; R40.2362 Coma scale, best motor response, obeys commands, at arrival to emergency department; R40.2142 Coma scale, eyes open, spontaneous, at arrival to emergency department; R40.2252 Coma scale, best verbal response, oriented, at arrival to emergency department; R27.0 Ataxia, unspecified; D63.8 Anemia in other chronic diseases classified elsewhere
CPT/HCPCS: 36415; 36416; 70450; 71045; 80048; 80053; 82553; 84484; 85025; 85610; 93005; J0360; J1644; J2597; Q5105